=== PATIENT | female | born 1945 | race Caucasian/White ===

== ENCOUNTER → 2018-01-11 12:51 | Outpatient (CLI) | payer OTHER, SELFPAY ==
[2018-01-11 15:20] LABS: Carbon Dioxide 26 mmol/L (22-32); Chloride 105 mmol/L (98-107); HEMOLYSIS < 15 (0-50); Potassium 4.1 mmol/L (3.4-5.1); Sodium 142 mmol/L (137-145)
== END ==
PROVIDERS: PCP Internal Medicine; Visit Provider Internal Medicine
DX: Z01.818 Encounter for other preprocedural examination (principal)
CPT/HCPCS: 36415; 80051

== ENCOUNTER → 2018-01-21 14:29 | Outpatient (CLI) | payer OTHER, SELFPAY | PROVIDERS: PCP Internal Medicine; Visit Provider Internal Medicine | DX: R10.10 Upper abdominal pain, unspecified (principal) ==

== ENCOUNTER → 2018-01-27 09:21 | Outpatient (CLI) | payer OTHER, SELFPAY | PROVIDERS: PCP Internal Medicine; Visit Provider Internal Medicine | DX: R10.10 Upper abdominal pain, unspecified (principal) | CPT/HCPCS: 84110; 84120 ==

== ENCOUNTER 2018-03-08 10:13 | Outpatient (RCR) | payer OTHER, SELFPAY ==
--- NOTE | 2018-03-08 15:40 | PT.OIE ---
Current Diagnoses Pain in left knee (03/08/18) Muscle weakness (generalized) (03/08/18) Trochanteric bursitis, left hip (03/08/18) Iliotibial band syndrome, left leg (03/08/18) Other abnormalities of gait and mobility (03/08/18) Provider Visit Care Team Role Provider Type Melly Bah MD Primary Care Provider Physician Specialty: Internal Medicine Address: [address] [place] [address], [id number] Email: Sayra Ortiz MD Attending Provider Physician Specialty: Orthopedic Surgery Address: [address] [place] [address], [id number] Email: Physical Therapy Initial Evaluation PT-OP-A Visit Information Start: 03/08/18 09:46 Freq: Status: Active Protocol: Document 03/08/18 10:41 LRN (Rec: 03/08/18 11:28 LRN [id number]) Out-Patient Physical Therapy Visit Information Visit Information Visit Type Initial Evaluation Visit Note Visit Start Time 10:41 Visit Stop Time 11:24 Total Visit Minutes 43 Visit Number 1 Number of 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 Current Complaints Joint, muscle tendon pain from medications. History of Current Condition Pt onset history was difficult to follow. She states that since she has needed to be on medications from stents she noticed onset of leg pain. Her primary complaint is left knee pain in bed turning. Her entire L leg used to hurt, but now it is primarily in the left knee. She does state that in standing she has pain down the lateral L leg to the ankle and pain in the thigh medially. She states when she walks she has pain in the L knee located medial and inferior to the patella. She has sharp pain with trunk rotation with the feet planted . She wants to do exercise to keep her heart healthy. She mentioned she was diagnosed with MS in her 20's but would not elaborate on how that is associated to her current problem. She feels use of ice helps. Prior Treatments and Tests None. Treatment Goals Patient/Caregiver Goals Pt goal is to remain physically active and to be able to do cardiac exercise without injury to the L knee. Prior Functional Status Baseline Function- ADL's Independent Baseline Function- Mobility Independent Baseline Function- Recreation/Hobbies Able to exercise in Cardiac Rehab. Current Functional Impairments (Reported) Functional Limitations- ADL's Walking, standing Functional Limitations- Mobility/Gait Painful L hip/knee with gait. Functional Limitations- Recreation/ Cardiac rehab exercising. Hobbies Personal Factors Other Personal Factors That May Effect Co-morbidities per health Therapy/Recovery questionaire: 3 stents placed 05/30/2016, Arthritis, Fibromyalgia, Skin CA, diagnosed with Multiple Sclerosis which the pt designates she disagrees, neuropathy, heart disease, arterial disease, pt reported bilateral RODGER. PT-OP-C Subjective Start: 03/08/18 09:46 Freq: Status: Active Protocol: Document 03/08/18 10:41 LRN (Rec: 03/10/18 12:44 LRN [id number]) Patient Questionnaires Other Questionnaire Name and Score LEFS Score of 30 with 4 unanswered questions. OP-PT Pain Assessment Pain Assessment Grid Paper Pain Assessment Grid Completed Yes Location L LE Pain Location Details L Lateral and posterior thigh, and entire lower leg. Scale Used Numeric (1 - 10) Description- Other Pain varies 3-8/10. Pain Aggravating Factors Changing Position Activity Exercise Walking Pain Alleviating Factors Cold Patient Stated Pain Goal Tolerable level to be able to exercise in cardiac rehab. PT-OP-F Manual Assessment Start: 03/08/18 09:46 Freq: Status: Active Protocol: Document 03/08/18 10:41 LRN (Rec: 03/08/18 16:05 LRN [id number]) Manual Assessments Joint Mobility Assessment Joint Mobility Assessment Decreased L patellar mobility for Lateral > Medial [place]. PT-OP-G Mobility & Gait Start: 03/08/18 09:46 Freq: Status: Active Protocol: Document 03/08/18 10:41 LRN (Rec: 03/08/18 16:05 LRN [id number]) OP Mobility Evaluation Bed Mobility Rolling Painful L knee. Transfers Sit to Stand Slow and reticent with use of hands. OP Gait Assessment Gait Gait Assistance Required: Independent Distance (Feet) 50 Able to Maintain Weight Bearing Status Yes During Gait Gait Deviations General Gait Pattern Antalgic Factors Limiting Gait Function Factors Limiting Gait Function Pain PT-OP-J Posture/Palpation/Skin Start: 03/08/18 09:46 Freq: Status: Active Protocol: Document 03/08/18 10:41 LRN (Rec: 03/08/18 16:05 LRN [id number]) Posture Evaluation Position Standing T-Spine Posture Increased Kyphosis L-Spine Posture Decreased Lordosis Weight Distribution Weight Shifted Right Ankle/Foot Posture (R) Calcaneal Eversion PT-OP-K Range of Motion Start: 03/08/18 09:46 Freq: Status: Active Protocol: Document 03/08/18 10:41 LRN (Rec: 03/08/18 16:05 LRN [id number]) Hip Goniometric Range of Motion Hip ROM Limitations Hip ROM Limitations Soft Tissue Tightness Muscle Weakness Comments Hip ext: 0 deg's left, 5 deg's right. Hip IR: 10 deg's bilaterally. Hip ER: 30 deg's bilaterally. Knee Goniometric Range of Motion Knee Measured in Degrees Right Patient Position Supine Flexion Active (degrees) 120 Extension Active (degrees) 0 Left Patient Position Supine Flexion Active (degrees) 100 Extension Active (degrees) 0 PT-OP-M Strength Start: 03/08/18 09:46 Freq: Status: Active Protocol: Document 03/08/18 10:41 LRN (Rec: 03/08/18 16:05 LRN [id number]) Hip Strength Hip Manual Muscle Testing Right External Rotation 3 Fair Internal Rotation 3 Fair Comments Strength normal except as noted above. Left Adduction 2 Poor Internal Rotation 3 Fair Comments Strength normal except as noted above. Knee Strength Knee Manual Muscle Testing Right Reason Not Measured WFL Left Reason Not Measured WFL Comments Pain inferior to the patella with testing. PT-OP-Q Treatments Start: 03/08/18 09:46 Freq: Status: Active Protocol: Document 03/08/18 10:41 LRN (Rec: 03/08/18 16:05 LRN [id number]) Therapeutic Exercises Sidelying Exercises Hip AD Side left Manual Therapy Treatment Joint Mobilizations Patellar Joint PF Direction Medial/Lateral Grade II Body Position Supine Comments Minimal mob tolerated. Self-Care/Home Management Treatment Education Patient Education Home Exercise Program Activities Self-Care/Home Management Activities I/S pt in self patellar mobs, and L hip AD strengthening in R sidelie or standing. I/S pt in use of ice for pain management. PT-OP-T Assessment and Plan Start: 03/08/18 09:46 Freq: Status: Active Protocol: Document 03/08/18 10:41 LRN (Rec: 03/08/18 16:05 LRN [id number]) Physical Therapy Assessment Rehab Potential Rehabilitation Potential Good Evaluation Complexity Number of Personal Factors/Comorbidities 3 or More Number of Body Systems Impaired 4 or More Clinical Presentation at Evaluation Evolving Impairments Impairments Activity Tolerance Gait Pain Posture ROM Strength Other Concerns Age Related Concerns 72 yrs old. Barriers to Rehabilitation Skin CA. Heart Disease: 2 stents. Neuropathy. Multiple Sclerosis that the pt doesn't believe she has. ?[place]iter TKA. Goals Four Impairment Pt lacks self care program. Weigh Machine Operator Goal (LTG) Pt will be independent in a self care program to maintain achieved baseline function. LTG Duration 05/12/19 Three Impairment Decreased postural awareness. Short Term Goal (STG) Pt will demonstrate improved postural awareness by independent self correction of posture 75% of the time. STG Duration 04/12/18 Two Impairment Decreased L LE strength Weigh Machine Operator Goal (LTG) Pt will demonstrate improved gait mechanics with improved L LE strength LTG Duration 04/12/19 One Impairment L knee and mildly L hip pain. Custodial Goal (LTG) With reduction in pain the pt will be able to tolerate return to a cardiac exercise program. LTG Duration 05/12/19 Assessment Summary Assessment Pt presents with tenderness in the bilateral TFL muscles and mildly at the greater trochanter bursa site, Left PF pain with decreased mobility for medial/lateral mobility, decreased L>R hip strength and antalgic gait. Pt also complains of R shoulder pain but is agreeable to focus on her L LE pain and will seek follow up care and a possible referral for shoulder pain once her L LE pain has been addressed. Physical Therapy Plan Frequency and Duration Frequency of Treatment 2x/Week Plan of Care Start Date 03/08/18 Plan of Care End Date 05/12/19 Therapeutic Interventions Therapeutic Interventions Aquatic Therapy Gait Training Home Exercise Program Manual Therapy Neuromuscular Re-education Patient/Caregiver Education Self-Care/Home Management Soft Tissue Mobilization Therapeutic Exercises Modalities Cold Pack/Ice Massage Electric Stimulation Hot Packs Iontophoresis Next Visit Focus/Plan Next Note Type Treatment Note Next Visit Plan Exercise strengthening to start, f/b Patellar mob med/ lat; L hip strengthening (AD, IR/R ER), L hip ext stretch, L knee flexion stretch, MWM for L knee flexion, STM, gait training, end CP or ice/EStim.
--- NOTE | 2018-03-15 12:34 | PT.OPDS ---
Current Diagnoses Pain in left knee (03/08/18) Muscle weakness (generalized) (03/08/18) Trochanteric bursitis, left hip (03/08/18) Iliotibial band syndrome, left leg (03/08/18) Other abnormalities of gait and mobility (03/08/18) Provider Visit Care Team Role Provider Type Melly Bah MD Primary Care Provider Physician Specialty: Internal Medicine Address: [address] [place] [address], [address] Email: Sayra Ortiz MD Attending Provider Physician Specialty: Orthopedic Surgery Address: [address] [place] [address], [id number] Email: Visit Number Visit Number 1 Discharge Summary PT-OP-B Current Condition Start: 03/08/18 09:46 Freq: Status: Active Protocol: Document 03/08/18 10:41 LRN (Rec: 03/08/18 11:28 LRN [id number]) Current Condition History of Current Condition Onset Date January 2018 after start of medications for her heart ( stent placed). Current Complaints Joint, muscle tendon pain from medications. History of Current Condition Pt onset history was difficult to follow. She states that since she has needed to be on medications from stents she noticed onset of leg pain. Her primary complaint is left knee pain in bed turning. Her entire L leg used to hurt, but now it is primarily in the left knee. She does state that in standing she has pain down the lateral L leg to the ankle and pain in the thigh medially. She states when she walks she has pain in the L knee located medial and inferior to the patella. She has sharp pain with trunk rotation with the feet planted . She wants to do exercise to keep her heart healthy. She mentioned she was diagnosed with MS in her 20's but would not elaborate on how that is associated to her current problem. She feels use of ice helps. Prior Treatments and Tests None. Treatment Goals Patient/Caregiver Goals Pt goal is to remain physically active and to be able to do cardiac exercise without injury to the L knee. Prior Functional Status Baseline Function- ADL's Independent Baseline Function- Mobility Independent Baseline Function- Recreation/Hobbies Able to exercise in Cardiac Rehab. Current Functional Impairments (Reported) Functional Limitations- ADL's Walking, standing Functional Limitations- Mobility/Gait Painful L hip/knee with gait. Functional Limitations- Recreation/ Cardiac rehab exercising. Hobbies Personal Factors Other Personal Factors That May Effect Co-morbidities per health Therapy/Recovery questionaire: 3 stents placed 05/30/2016, Arthritis, Fibromyalgia, Skin CA, diagnosed with Multiple Sclerosis which the pt designates she disagrees, neuropathy, heart disease, arterial disease, pt reported bilateral RODGER. PT-OP-T Assessment and Plan Start: 03/08/18 09:46 Freq: Status: Active Protocol: Document 03/15/18 12:29 LRN (Rec: 03/15/18 12:33 LRN [id number]) Physical Therapy Assessment Assessment Summary Assessment Pt was seen for her initial evaluation 03/08/18 and failed to return for further therapy due to report of insurance issues. Expect no change in pt's condition, goals not met. Physical Therapy Plan Next Visit Focus/Plan Next Visit Plan Pt is being discharged due to pt's withdrawl from physical therapy. Thank you for your referral.
== END 2018-05-20 11:12 ==
LOC: PHYS 10:13
PROVIDERS: PCP Internal Medicine; Visit Provider Orthopaedic Surgery Foot and Ankle Surgery
DX: M70.62 Trochanteric bursitis, left hip (principal); M76.32 Iliotibial band syndrome, left leg
CPT/HCPCS: 97161

== ENCOUNTER → 2018-03-16 08:46 | Outpatient (CLI) | payer OTHER, SELFPAY ==
[2018-03-16 09:41] LABS: Alanine Aminotransferase 23 IU/L (9-52); Albumin 4.3 g/dL (3.5-5.0); Albumin Globulin Ratio 1.8 (1.0-2.8); Alkaline Phosphatase 67 U/L (38-126); Aspartate Aminotransferase 23 IU/L (14-36); Bilirubin Total 0.7 mg/dL (0.2-1.3); Blood Urea Nitrogen 14 mg/dL (7-17); Calcium 9.6 mg/dL (8.4-10.2); Carbon Dioxide 31 mmol/L (22-32); Chloride 104 mmol/L (98-107); Cholesterol 255 mg/dL (140-199); Estimated Glomerular Filt Rate > 60.0 mL/min (>60); Globulin 2.4 g/dL (1.7-4.1); Glucose 116 mg/dL (80-110); HDL Cholesterol 60 mg/dL (40-60); HEMOLYSIS < 15 (0-50); LDL Cholesterol Calculated 155 mg/dL (<100); Potassium 4.5 mmol/L (3.4-5.1); Sodium 142 mmol/L (137-145); Total Protein 6.7 g/dL (6.3-8.2); Triglycerides 201 mg/dL (35-150)
== END ==
PROVIDERS: PCP Internal Medicine; Visit Provider Internal Medicine Cardiovascular Disease
DX: E78.5 Hyperlipidemia, unspecified (principal)
CPT/HCPCS: 36415; 80053; 80061

== ENCOUNTER → 2018-05-17 09:52 | Outpatient (CLI) | payer OTHER, SELFPAY ==
[2018-05-17 10:26] LABS: Hemoglobin A1C% w Est Avg Glu 6.2 % (4.0-6.0)
[2018-05-17 10:32] LABS: Alanine Aminotransferase 21 IU/L (9-52); Albumin 4.6 g/dL (3.5-5.0); Albumin Globulin Ratio 1.8 (1.0-2.8); Alkaline Phosphatase 63 U/L (38-126); Aspartate Aminotransferase 24 IU/L (14-36); BUN Creatinine Ratio 17.5 (6-22); Bilirubin Total 0.5 mg/dL (0.2-1.3); Blood Urea Nitrogen 14 mg/dL (7-17); Calcium 9.7 mg/dL (8.4-10.2); Carbon Dioxide 27 mmol/L (22-32); Chloride 104 mmol/L (98-107); Cholesterol 289 mg/dL (140-199); Estimated Glomerular Filt Rate > 60.0 mL/min (>60); Globulin 2.5 g/dL (1.7-4.1); Glucose 129 mg/dL (80-110); HDL Cholesterol 62 mg/dL (40-60); HEMOLYSIS < 15 (0-50); LDL Cholesterol Calculated 197 mg/dL (<100); Potassium 4.6 mmol/L (3.4-5.1); Sodium 141 mmol/L (137-145); Total Protein 7.1 g/dL (6.3-8.2); Triglycerides 150 mg/dL (35-150)
== END ==
PROVIDERS: PCP Internal Medicine; Visit Provider Internal Medicine Cardiovascular Disease
DX: E78.5 Hyperlipidemia, unspecified (principal); R73.9 Hyperglycemia, unspecified
CPT/HCPCS: 36415; 80053; 80061; 83036

== ENCOUNTER 2018-08-14 16:43 | Emergency (ER) | payer OTHER, SELFPAY ==
--- NOTE | 2018-08-14 16:49 | DI.RAD.S_ITS ---
PROCEDURE: XR CHEST 1V INDICATIONS: chest pain TECHNIQUE: One view of the chest was acquired. COMPARISON: [facility], , CHEST 1 VIEW, 05/28/2016, 1:21. FINDINGS: Surgical changes and devices: None. Lungs and pleura: Lungs are clear. No pleural effusions or pneumothorax. Mediastinum: Mediastinal contours appear normal. Heart size is normal. Bones and chest wall: No suspicious bony lesions. Overlying soft tissues appear unremarkable. IMPRESSION: Negative for acute pulmonary process. Dictated by: John Bourgeois M.D. on 08/14/2018 at 17:18 Approved by: John Bourgeois M.D. on 08/14/2018 at 17:18
[2018-08-14 16:50] VITALS: BP 140/81; PULSE 73; RESP 18; O2SAT 95; BMI 28.1
[2018-08-14 17:00] VITALS: BP 156/69; PULSE 68; RESP 20; O2SAT 97
[2018-08-14 17:23] LABS: Add Manual Diff / Slide Review NO; Basophils Absolute Auto 100 /uL (0-100); Basophils Percent Auto 0.9 % (0-2); Eosinophils Absolute Auto 100 /uL (0-450); Eosinophils Percent Auto 1.5 % (2-4); Hematocrit 39.5 % (36-46); Hemoglobin 13.2 g/dL (12.0-16.0); Lymphocytes Absolute Auto 2200 /uL (1100-4500); Lymphocytes Percent Auto 25.4 % (25-40); Mean Corpuscular HGB Conc 33.5 % (30-36); Mean Corpuscular Volume 83.7 fL (80-100); Monocytes Absolute Auto 500 /uL (0-900); Monocytes Percent Auto 5.7 % (3-14); Neutrophils Absolute Auto 5800 /uL (1500-7000); Neutrophils Percent Auto 66.5 % (50-75); Platelet Count 171 X10^3/uL (150-400); Red Blood Cell Count 4.72 X10^6/uL (4.0-5.2); White Blood Cell Count 8.7 X10^3/uL (4.5-11.0)
[2018-08-14 17:30] VITALS: BP 156/71; PULSE 69; RESP 18; O2SAT 98
[2018-08-14 17:34] LABS: Alanine Aminotransferase 24 IU/L (9-52); Albumin 4.3 g/dL (3.5-5.0); Albumin Globulin Ratio 1.6 (1.0-2.8); Alkaline Phosphatase 63 U/L (38-126); Aspartate Aminotransferase 23 IU/L (14-36); BUN Creatinine Ratio 16.3 (6-22); Bilirubin Total 0.5 mg/dL (0.2-1.3); Blood Urea Nitrogen 13 mg/dL (7-17); Calcium 9.2 mg/dL (8.4-10.2); Carbon Dioxide 24 mmol/L (22-32); Chloride 106 mmol/L (98-107); Creatine Kinase 67 U/L (30-135); Estimated Glomerular Filt Rate > 60.0 mL/min (>60); Globulin 2.7 g/dL (1.7-4.1); Glucose 100 mg/dL (80-110); HEMOLYSIS 22 (0-50); Potassium 3.9 mmol/L (3.4-5.1); Sodium 138 mmol/L (137-145)
[2018-08-14 17:46] LABS: Troponin I < 0.012 ng/mL (0.01-0.034)
[2018-08-14 18:00] VITALS: BP 147/76; PULSE 69; RESP 16; O2SAT 96
--- NOTE | 2018-08-19 14:25 | ED_ITS ---
HPI - Chest Pain General Chief Complaint: Chest Pain Stated Complaint: chest pain back pain Time Seen by Provider: 08/14/18 17:10 Source: patient Mode of arrival: ambulatory Limitations: no limitations History of Present Illness HPI narrative: Patient presents emergency department complaining of chest pain on off for the last several days. She denies shortness of breath, radiation of pain, or nausea. The pain has been on both sides of her chest. She states she has also noticed it radiating through to the back. She states it is worse with a deep breath. Pain is not currently present. Patient states she just wanted to get checked out for peace of mind. Patient states that she has had 4 of 10 pain at the worst. The pain comes on randomly, and is not exertionally related. Patient does have a history of coronary artery stenting in the past. Related Data Previous Rx's Medication Instructions Recorded nitrofurantoin monohyd/m-cryst 100 mg PO BID 7 Days #0 cap 05/01/16 [Macrobid] Allergies Allergy/AdvReac Type Severity Reaction Status Date / Time adenosine [ADENOSINE] Allergy Unknown Unverified 09/15/17 12:38 Opioids - Morphine Analogues Allergy Unknown Unverified 09/15/17 12:38 [OPIOIDS - MORPHINE ANALOGUES] Dwdvgbq-Fne-Pcj Reductase Allergy Unknown Unverified 09/15/17 12:38 Inhibitor [[id number]-WCS-CJB REDUCTASE INHIBITOR] Sulfa (Sulfonamide Allergy Unknown Unverified 09/15/17 12:38 Antibiotics) [SULFA (SULFONAMIDE ANTIBIOTICS)] Review of Systems Constitutional Denies chills, Denies fever(s), Denies lethargy and Denies weakness Eyes Denies change in vision, Denies eye discharge, Denies irritation and Denies loss of vision ENT Ears, Nose, Mouth, and Throat: Denies change in voice, Denies neck pain and Denies sore throat Cardiovascular Reports chest pain, Denies irregular heart rhythm, Denies lightheadedness, Denies palpitations, Denies dyspnea, Denies dyspnea on exertion and Denies orthopnea Respiratory Denies cough, Denies dyspnea, Denies dyspnea on exertion and Denies wheezing Gastrointestinal Gastrointestinal: Denies abdominal pain, Denies change in bowel habits, Denies diarrhea, Denies nausea and Denies vomiting Genitourinary Denies hematuria, Denies flank pain, Denies urinary incontinence and Denies urinary urgency Musculoskeletal Denies neck pain Integumentary/Breasts Denies pruritus, Denies erythema, Denies rash and Denies wounds Neurologic Denies confusion, Denies loss of vision and Denies weakness Psychiatric Denies anxiety, Denies confusion, Denies depression, Denies homicidal ideation and Denies suicidal ideation Endocrine Denies palpitations Hematologic/Lymphatic Denies easy bruising Allergic/Immunologic Denies wheezing PFSH Medical History Coronary artery disease (Acute) Chest pain (Acute) Renal cyst, left (Acute) Acute coronary syndrome (Acute) Surgical History H/O coronary angioplasty (Acute) Social History Smoking Status: Former smoker Social History Smoking Status: Former smoker Exam Initial Vital Signs Initial Vital Signs: Vital Signs Pulse Rate 73 08/14/18 16:50 Respiratory Rate 18 08/14/18 16:50 Blood Pressure 140/81 08/14/18 16:50 Pulse Oximetry 95 08/14/18 16:50 Const General: cooperative and well developed Nutritional Appearance: well nourished Orientation: alert, awake, oriented x3 and not confused HENMT Head: normocephalic and atraumatic Ears: external ears normal Nose: external nose normal and No nasal discharge Face and sinus: face symmetric and No dry mucous membranes Mouth: oral mucosae normal and moist mucous membranes Teeth and gingiva: dentition normal Eyes General: appearance normal, both eyes and all related structures Eyelids: eyelids normal Conjunctivae: conjunctivae normal Sclera: sclerae normal Pupils: PERRL EOM: EOM intact bilaterally Neck Neck: normal visual inspection, trachea midline, No lymphadenopathy, No midline deformity and No JVD Lymphatic: No lymphedema Chest Chest: normal inspection of the chest Resp Effort & Inspection: normal respiratory effort, able to speak in complete sentences, no respiratory distress and no use of accessory muscles Auscultation: clear to auscultation bilaterally, no rales, no rhonchi and no wheezes Cardio Rate: regular rate Rhythm: regular rhythm Heart Sounds: no click, no gallops, no murmurs and no rubs Pulses: normal peripheral pulses GI Inspection: non-distended Palpation: soft, no hepatosplenomegaly, No guarding, No pulsatile mass and No tender Auscultation: normal bowel sounds Back/Spine/Pelvis Back: No CVA tenderness Cervical Spine: cervical ROM normal and No pain with cervical ROM Thoracic/Lumbar Spine: thoracic and lumbar spine normal to inspection Skin General: no rashes or lesions noted, No jaundice and No petechiae Neuro General: alert, oriented x3, gait normal and no focal motor deficits Speech: speech normal Extrem General: full ROM, no clubbing, cyanosis or edema, no pedal edema and no calf tenderness Psych Appearance: well kempt Mental Status: mental status grossly normal Attitude: cooperative Thought Content: normal and suicidality Judgment: judgment good Course Course Narrative: the patient was chest pain-free in the emergency department, but given her history, I felt she should at least have initial workup for her chest pain. Labs and EKG were performed, and found to be unremarkable. I discussed with the patient that her pain is somewhat atypical, and has been going on on and off for several days. As such, is less likely to be coronary artery disease related, but none the less, with her history, she should follow up with her primary doctor and discuss having a stress test done. Patient is agreeable to this plan. We discussed the usual indications for return. MDM - Chest Pain Medical Records Data Attestation: I reviewed the patient's medical records. Lab Data Attestation: I reviewed the patient's lab results. Result diagrams: 08/14/18 17:12 08/14/18 17:12 Lab Results 08/14/18 08/14/18 Range/Units 17:12 17:12 WBC 8.7 (4.5-11.0) X10^3/uL RBC 4.72 (4.0-5.2) X10^6/uL Hgb 13.2 (12.0-16.0) g/dL Hct 39.5 (36-46) % MCV 83.7 (80-100) fL MCH 28.0 (26-34) PG MCHC 33.5 (30-36) % RDW 15.0 H (11.6-14.8) % Plt Count 171 (150-400) X10^3/uL Neut % (Auto) 66.5 (50-75) % Lymph % (Auto) 25.4 (25-40) % [place] % (Auto) 5.7 (3-14) % Eos % (Auto) 1.5 L (2-4) % Baso % (Auto) 0.9 (0-2) % Neut # (Auto) 5800 (4604-1176) /uL Lymph # (Auto) 2200 (0992-6191) /uL [place] # (Auto) 500 (0-900) /uL Eos # (Auto) 100 (0-450) /uL Baso # (Auto) 100 (0-100) /uL Sodium 138 (137-145) mmol/L Potassium 3.9 (3.4-5.1) mmol/L Chloride 106 (98-107) mmol/L Carbon Dioxide 24 (22-32) mmol/L BUN 13 (7-17) mg/dL Creatinine 0.80 (0.52-1.04) mg/dL Estimated GFR > 60.0 (>60) mL/min BUN/Creatinine Ratio 16.3 (6-22) Glucose 100 (80-110) mg/dL Calcium 9.2 (8.4-10.2) mg/dL Total Bilirubin 0.5 (0.2-1.3) mg/dL AST 23 (14-36) IU/L ALT 24 (9-52) IU/L Alkaline Phosphatase 63 (38-126) U/L Total Creatine Kinase 67 (30-135) U/L CK-MB (CK-2) TNP CK-MB (CK-2) Rel Index TNP Troponin I < 0.012 (0.01-0.034) ng/mL Total Protein 7.0 (6.3-8.2) g/dL Albumin 4.3 (3.5-5.0) g/dL Globulin 2.7 (1.7-4.1) g/dL Albumin/Globulin Ratio 1.6 (1.0-2.8) Urine Dip Bedside Urine Glucose Negative Bedside Urine Bilirubin - Negative Bedside Urine Ketone - Negative Urine Specific [place] 1.020 Bedside Urine Occult Blood - Negative Bedside Urine pH 5.5 Bedside Urine Protein - Negative Bedside Urine Urobilinogen - Negative Bedside Urine Nitrite - Negative Bedside Urine Leukocytes - Negative Esterase Discharge Plan Departure Patient Disposition: Home Clinical Impression: Chest pain Qualifiers: Chest pain type: unspecified Qualified Code(s): R07.9 - Chest pain, unspecified Back pain Qualifiers: Back pain location: thoracic back pain Chronicity: acute Back pain laterality: right Qualified Code(s): M54.6 - Pain in thoracic spine Discharge Date/Time: 08/14/18 18:35 Interventions: ED Discharge Assessment Last Done: 08/14/18 18:35 Instructions: DI for Chest Pain Activity Restrictions/Additional Instructions: Your tests all look good. There is no evidence of a heart attack, or other seri ous cause of your pain. Please see your doctor in follow-up, to discuss whether you need to be rechecked with a stress test or not. Please take your nitroglycerine if you develop chest pain again. Prescriptions: No Action nitrofurantoin monohyd/m-cryst [Macrobid] 100 MG capsule 100 mg PO BID 7 Days Qty: 0 RF: 0 Referrals: Melly Bah MD [Primary Care Provider] -
== END 2018-08-14 18:35 | disposition home or self-care (01) ==
PROVIDERS: Emergency Provider Emergency Medicine; PCP Internal Medicine
DX: R07.9 Chest pain, unspecified (principal); M54.6 Pain in thoracic spine
CPT/HCPCS: 36591; 71045; 80053; 81003; 82550; 84484; 85025; 93005; 99283; 99285

== ENCOUNTER → 2018-10-14 12:50 | Outpatient (CLI) | payer OTHER, SELFPAY ==
--- NOTE | 2018-10-14 | DI.MG.S_ITS ---
BILATERAL DIGITAL SCREENING MAMMOGRAM 3D/2D WITH CAD: 10/14/2018 CLINICAL: Routine screening. Family history of breast cancer. Comparison is made to exams dated: 10/13/2017 mammogram, 09/24/2016 mammogram - [facility], 03/19/2015 mammogram, and 02/01/2013 ultrasound - [facility]. There are scattered fibroglandular elements in both breasts. Current study was also evaluated with a Computer Aided Detection (CAD) system. There is a benign biopsy clip in the left breast. No significant masses, calcifications, or other findings are seen in either breast. There has been no significant interval change. IMPRESSION: NEGATIVE There is no mammographic evidence of malignancy. A 1 year screening mammogram is recommended. This exam was interpreted at Station ID: [id number]. NOTE: For mammograms, a report in lay terms will be sent to the patient. Approximately 15% of breast malignancies will not be visualized mammographically. In the management of a palpable breast mass, a negative mammogram must not discourage biopsy of a clinically suspicious lesion. Electronically Signed By: Stu medeiros/deepak:10/14/2018 17:33:55 letter sent: Normal Exam ACR BI-RADS Category 1: Negative [id number]
== END ==
PROVIDERS: PCP Internal Medicine; Visit Provider Internal Medicine
DX: Z12.31 Encounter for screening mammogram for malignant neoplasm of breast (principal); Z80.3 Family history of malignant neoplasm of breast
CPT/HCPCS: 77063; 77067

== ENCOUNTER 2018-11-08 10:26 | Emergency (ER) | payer OTHER, SELFPAY ==
[2018-11-08] VITALS (12 sets, daily range): BP systolic 97–144; BP diastolic 58–91; PULSE 61–80; RESP 16–29; TEMP 36.1; O2SAT 92–96; BMI 27.8
--- NOTE | 2018-11-08 10:52 | ED.CHESTPAIN ---
HPI - Chest Pain General Chief Complaint: Chest Pain Stated Complaint: Heart Attack Time Seen by Provider: 11/08/18 10:30 Source: patient and old records reviewed Mode of arrival: wheelchair Limitations: no limitations History of Present Illness HPI narrative: This is a 73-year-old female who is brought in by her friend. Patient comes from home, she states that she was discharged from [facility] for an heart attack on Wednesday the November 04. Patient states that she was feeling pretty well the day afterwards. Since then she has had some shortness of breath, she states it easily go away but she notices it especially nighttime when she is sleeping. She states that the other night she got up to go to the bathroom and she thought her toes look sort of hurd. She has been checking her blood pressure, heart rate on oxygen at home. She states that she will get discomfort but in her back. It is not in her chest. It can be from the left or right side of her scapular area. She isn't sure if this is associated with her episodes of shortness of breath. She has been nauseated occasionally. She has vomited but she states it will be when she drinks water she was sort of in for water will come out and that will be it. She denies any issues with diarrhea or constipation. She denies any new issues with urination but sometimes has problems with urinary retention/hesitancy. She denies any swelling in her lower extremities. She has not tried any the nitro sublingual for her symptoms. Patient states that she was catheterized, she does not know stated a stent but she states that they wanted to intubate her for a repeat catheterization and she refused. She did have 1 episode of AFib the hospital. They gave her amiodarone which she has been taking. She states she has multiple medication allergies. 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 She takes medication for hypertension, dyslipidemia. She is on Effient. Patient is any tobacco, no recent alcohol or illicit. Dr. Cardoso is her traffic court magistrate. Patient also added that once she got home she took about her CPAP and tried to clean it and this may be contributing to her difficulty with sleeping and breathing at night. Related Data Previous Rx's Medication Instructions Recorded nitrofurantoin monohyd/m-cryst 100 mg PO BID 7 Days #0 cap 05/01/16 [Macrobid] Allergies Allergy/AdvReac Type Severity Reaction Status Date / Time adenosine [ADENOSINE] Allergy Unknown Verified 11/08/18 10:35 Opioids - Morphine Analogues Allergy Unknown Verified 11/08/18 10:35 [OPIOIDS - MORPHINE ANALOGUES] Fwysftj-Ilk-Btf Reductase Allergy Unknown Verified 11/08/18 10:35 Inhibitor [WWLMLSC-[id number]-BKN REDUCTASE INHIBITOR] Sulfa (Sulfonamide Allergy Unknown Verified 11/08/18 10:35 Antibiotics) [SULFA (SULFONAMIDE ANTIBIOTICS)] Review of Systems Review of Systems ROS Unobtainable: All systems reviewed & are unremarkable except as noted in HPI and below Constitutional Denies chills, Denies fever(s), Denies lethargy and Denies weakness Cardiovascular Denies chest pain, Denies diaphoresis, Denies syncope, Denies rapid heart rate, Denies edema, Denies radiating jaw, neck or arm pain, Denies palpitations, Denies dyspnea, Reports dyspnea on exertion, Denies orthopnea and Denies other (pain right or left) Respiratory Denies chest congestion, Denies cough, Denies dyspnea, Reports dyspnea on exertion and Denies wheezing Gastrointestinal Gastrointestinal: Denies abdominal pain, Denies change in bowel habits, Denies diarrhea, Denies nausea and Denies vomiting Genitourinary Denies hematuria, Denies flank pain, Denies urinary incontinence, Reports urinary hesitancy and Denies urinary urgency Musculoskeletal Reports back pain (scapular discomfort.) Integumentary/Breasts Denies erythema Neurologic Denies syncope and Denies weakness Endocrine Denies palpitations Allergic/Immunologic Denies wheezing [facility] Medical History Coronary artery disease (Acute) Renal cyst, left (Acute) Acute coronary syndrome (Acute) Chest pain (Inactive) Surgical History H/O coronary angioplasty (Acute) Social History Smoking Status: Former smoker Social History Smoking Status: Former smoker Exam Narrative Exam Narrative: GENERAL: Alert and oriented x three, well-nourished, well-appearing female in no acute distress. HEENT: Head normocephalic, atraumatic, EOMI, pupils reactive, face symmetric, moist mucous membranes NECK: Supple, full range of motion CARDIOVASCULAR: Regular rate and rhythm without murmurs, rubs or gallops. No DVT. Bilateral pulses lower extremities, no edema bilateral lower extremities. RESPIRATORY: Breath sounds equal bilaterally, no wheezes rales or rhonchi. No tachypnea, no accessory muscle use. ABDOMEN: Soft, nontender. Normoactive bowel sounds all 4 quadrants. No guarding or rebound, rigidity, no mass : No CVA tenderness EXTREMITIES: Normal range of motion, no clubbing or edema. Neurovascularly intact NEUROLOGICAL: Cranial nerves II through XII grossly intact. Moving all extremities SKIN: Warm, dry, no petechiae, no rashes or lesions. Initial Vital Signs Initial Vital Signs: Vital Signs Temperature 97.0 F L 11/08/18 10:35 Pulse Rate 72 11/08/18 10:35 Respiratory Rate 22 11/08/18 10:35 Blood Pressure 117/71 11/08/18 10:35 Pulse Oximetry 93 11/08/18 10:35 Course Orders Ordered: ED Orders 11/08/18 10:34 EKG-12 Lead Stat 11/08/18 10:53 XR chest 1V Stat 11/08/18 11:05 B Type Natriuretic Peptide Stat Complete Blood Count AUTO DIFF Stat Comprehensive Metabolic Panel Stat Lipase Stat Troponin & CK Cardiac Panel Stat 11/08/18 12:20 EKG-12 Lead Stat Discontinued Medications Acetaminophen (Tylenol) 650 mg PO NOW ONE Stop: 11/08/18 13:18 Last Admin: 11/08/18 13:18 Dose: 650 mg Albuterol/Ipratropium (Duoneb) 3 ml INH NOW ONE Stop: 11/08/18 13:29 Last Admin: 11/08/18 13:36 Dose: 3 ml Furosemide (Lasix) 40 mg IV NOW ONE Stop: 11/08/18 12:37 Last Admin: 11/08/18 13:16 Dose: 40 mg Heparin Sodium (Porcine) (Heparin) 5,000 unit IV NOW ONE Stop: 11/08/18 12:09 Last Admin: 11/08/18 12:16 Dose: 5,000 unit Sodium Chloride (Normal Saline 0.9%) 1,000 mls @ 150 mls/hr IV CONT DANIELA Last Infusion: 11/08/18 14:58 Dose: 0 mls/hr Admin: 11/08/18 11:27 Dose: 150 mls/hr Heparin Sodium/Dextrose (Heparin Drip) 25,000 unit in 500 mls @ 19.377 mls/hr IV CONT DANIELA; Protocol Last Infusion: 11/08/18 14:58 Dose: 0 units/kg/hr, 0 mls/hr Admin: 11/08/18 12:16 Dose: 12 units/kg/hr, 19.377 mls/hr Nitroglycerin (Nitroglycerin) 50 mg in 250 mls @ 1.5 mls/hr IV TITRATE DANIELA; Protocol Last Titration: 11/08/18 14:58 Dose: 0 mcg/min, 0 mls/hr Titration: 11/08/18 13:10 Dose: 20 mcg/min, 6 mls/hr Titration: 11/08/18 13:05 Dose: 10 mcg/min, 3 mls/hr Admin: 11/08/18 13:00 Dose: 5 mcg/min, 1.5 mls/hr Nitroglycerin (Nitrostat) 0.4 mg SL [id number] PRN PRN Reason: Chest Pain Last Admin: 11/08/18 12:26 Dose: 0.4 mg Vital Signs - 8 hr 11/08/18 11:00 11/08/18 12:00 11/08/18 12:25 Pulse Rate 70 64 70 Respiratory Rate 22 18 23 Blood Pressure Blood Pressure [Left Arm] 123/75 115/82 125/68 Pulse Oximetry 94 95 92 11/08/18 12:26 11/08/18 12:45 11/08/18 12:50 Pulse Rate 71 80 78 Respiratory Rate 23 Blood Pressure 115/82 Blood Pressure [Left Arm] 144/74 H Pulse Oximetry 96 11/08/18 13:00 11/08/18 13:15 11/08/18 13:37 Pulse Rate 80 80 78 Respiratory Rate 24 16 Blood Pressure 131/91 H Blood Pressure [Left Arm] 129/86 Pulse Oximetry 95 94 11/08/18 14:14 11/08/18 14:50 Pulse Rate 61 73 Respiratory Rate 21 29 H Blood Pressure Blood Pressure [Left Arm] 97/64 99/58 L Pulse Oximetry 94 96 MDM - Chest Pain Lab Data Attestation: I reviewed the patient's lab results. Result diagrams: 11/08/18 11:05 11/08/18 11:05 Lab Results 11/08/18 11/08/18 11/08/18 Range/Units 11:05 11:05 11:05 WBC 9.7 (4.5-11.0) X10^3/uL RBC 4.25 (4.0-5.2) X10^6/uL Hgb 11.7 L (12.0-16.0) g/dL Hct 34.9 L (36-46) % MCV 82.2 (80-100) fL MCH 27.6 (26-34) PG MCHC 33.5 (30-36) % RDW 15.1 H (11.6-14.8) % Plt Count 260 (150-400) X10^3/uL Neut % (Auto) 70.8 (50-75) % Lymph % (Auto) 18.9 L (25-40) % [place] % (Auto) 8.2 (3-14) % Eos % (Auto) 1.1 L (2-4) % Baso % (Auto) 1.0 (0-2) % Neut # (Auto) 6900 (7194-2771) /uL Lymph # (Auto) 1800 (8453-0381) /uL [place] # (Auto) 800 (0-900) /uL Eos # (Auto) 100 (0-450) /uL Baso # (Auto) 100 (0-100) /uL Sodium 136 L (137-145) mmol/L Potassium 4.4 (3.4-5.1) mmol/L Chloride 101 (98-107) mmol/L Carbon Dioxide 28 (22-32) mmol/L BUN 13 (7-17) mg/dL Creatinine 0.70 (0.52-1.04) mg/dL Estimated GFR > 60.0 (>60) mL/min BUN/Creatinine Ratio 18.6 (6-22) Glucose 133 H (80-110) mg/dL Calcium 9.6 (8.4-10.2) mg/dL Total Bilirubin 0.9 (0.2-1.3) mg/dL AST 20 (14-36) IU/L ALT 21 (9-52) IU/L Alkaline Phosphatase 77 (38-126) U/L Total Creatine Kinase 44 (30-135) U/L CK-MB (CK-2) TNP CK-MB (CK-2) Rel Index TNP Troponin I 3.590 H* (0.01-0.034) ng/mL B-Natriuretic Peptide 1240 H (<100) Total Protein 6.9 (6.3-8.2) g/dL Albumin 3.9 (3.5-5.0) g/dL Globulin 3.0 (1.7-4.1) g/dL Albumin/Globulin Ratio 1.3 (1.0-2.8) Lipase 31 (23-300) U/L Imaging Data Chest x-ray: Radiologist's impression: [address] [id number] XRay Report Signed Patient: Soren Landrum CMR#: [id number] : 5Acct:[id number] Age/Sex: 73 / FDate of Service: 11/08/18 Loc: ED Accession Number: [id number] Procedure: XR chest 1V Ordering Provider: Myrtle Aguiar D.O. PROCEDURE: XR CHEST 1V INDICATIONS: back pain, sob intermittent, recent HI end of October TECHNIQUE: One view of the chest was acquired. COMPARISON: [facility], CR, XR CHEST 1 VIEW, 10/30/2018, 4:47. [facility], CR, XR CHEST 1 VIEW, 11/03/2018, 19:18. [facility], CR, XR CHEST 1 VIEW, 10/30/2018, 23:35. [facility], , XR CHEST 1V, 08/14/2018, 17:00. FINDINGS: Surgical changes and devices: None. Lungs and pleura: There are small bilateral pleural effusions, left greater right. The left effusion appears minimally changed, and the right pleural effusion is new. No pneumothorax. Mediastinum: Mediastinal contours appear normal. Heart size is mildly increased. Bones and chest wall: No suspicious bony lesions. Overlying soft tissues appear unremarkable. IMPRESSION: 1. Small bilateral pleural effusions, new on the right side and minimally changed on the left side compared to the last exam. 2. Mild cardiomegaly. Dictated by: Jenny Chicas M.D. on 11/08/2018 at 11:37 Approved by: Jenny Chicas M.D. on 11/08/2018 at 11:39 ECG Data Attestation: I personally reviewed and interpreted this ECG as follows: Prior ECG tracings: available for review Interpretation: Sinus rhythm rate of 72 NC 154 QRS of 93 QTC of 446. Patient has ST depression in precordial leads V1 through V4. Patient has prior EKG from 3 03/26/[address] depression. I do not have access to prior EKGs from her [facility] stay at the end of October. EKG 2. Continues to say show ST depression in he to through move 4, elevations not appreciated. Patient's EKG appears similar to prior from earlier today. MDM Narrative Medical decision making narrative: Attempted to obtain records. Patient's chart was reviewed, it appears she left Against Medical Advice but returned they attempted to catheterize her but were not able to secondary to patient movement and she refused intubation for catheterization. Patient's labs are not included so unclear if the troponin is trending upper down words. Patient continues to have an unstable anginal type picture with chest pain that waxes and wanes without any clear exacerbating factors. A BNP is also elevated at 1200, she has been short of breath. Patient was started on heparin, she was given a nitro sublingual which has improved her symptoms and started on nitro drip. Lasix 40 mg was also given. Patient states she has anaphylactic reaction to aspirin and this was not given. She is on Effient. I spoke with Dr. Olea at [facility] who accepts for transfer. I also spoke with Dr. Garrett afterwards and he agrees with transfer, he did review records and it appears based on their troponin versus ours that it is trending down. I did discuss with patient at length she is agreeable to seeing the hospitalist as well who is the traffic court magistrate, she is also open to intubation if needed for catheterization if Cardiology elects to do so. We discussed at length that if she is not willing to work with her providers there she cannot get the best care. Patient was offered transfer to other facilities including [facility] and [facility] multiple times prior to and after discussion with [facility] physicians in light of her negative experience while at [facility], at this time she elects to go to [facility]. She states that she is willing to work with her providers both hospitalist and cardiology team. Patient chest pain, scapular pain is improved, still a little short of breath but not worsening. Dr. Garrett did call back to check on patient. He asked that we fax EKG's too him and we did. Discharge Plan Departure Patient Disposition: General Acute Hospital Clinical Impression: ACS (acute coronary syndrome), CHF (congestive heart failure) Discharge Date/Time: 11/08/18 15:00 Interventions: ED Discharge Assessment Last Done: 11/08/18 15:00 Prescriptions: No Action nitrofurantoin monohyd/m-cryst [Macrobid] 100 MG capsule 100 mg PO BID 7 Days Qty: 0 RF: 0 Referrals: Melly Bah MD [Primary Care Provider] -
--- NOTE | 2018-11-08 10:53 | DI.RAD.S_ITS ---
PROCEDURE: XR CHEST 1V INDICATIONS: back pain, sob intermittent, recent OR end of October TECHNIQUE: One view of the chest was acquired. COMPARISON: [facility], CR, XR CHEST 1 VIEW, 10/30/2018, 4:47. [facility], CR, XR CHEST 1 VIEW, 11/03/2018, 19:18. [facility], CR, XR CHEST 1 VIEW, 10/30/2018, 23:35. [facility], CR, XR CHEST 1V, 08/14/2018, 17:00. FINDINGS: Surgical changes and devices: None. Lungs and pleura: There are small bilateral pleural effusions, left greater right. The left effusion appears minimally changed, and the right pleural effusion is new. No pneumothorax. Mediastinum: Mediastinal contours appear normal. Heart size is mildly increased. Bones and chest wall: No suspicious bony lesions. Overlying soft tissues appear unremarkable. IMPRESSION: 1. Small bilateral pleural effusions, new on the right side and minimally changed on the left side compared to the last exam. 2. Mild cardiomegaly. Dictated by: Jenny Chicas M.D. on 11/08/2018 at 11:37 Approved by: Jenny Chicas M.D. on 11/08/2018 at 11:39
--- NOTE | 2018-11-08 11:06 | ED_ITS ---
HPI - Chest Pain General Chief Complaint: Chest Pain Stated Complaint: Heart Attack Time Seen by Provider: 11/08/18 10:30 Source: patient and old records reviewed Mode of arrival: wheelchair Limitations: no limitations History of Present Illness HPI narrative: This is a 73-year-old female who is brought in by her friend. Patient comes from home, she states that she was discharged from [facility] for an heart attack on Wednesday the November 04. Patient states that she was feeling pretty well the day afterwards. Since then she has had some shortness of breath, she states it easily go away but she notices it especially nighttime when she is sleeping. She states that the other night she got up to go to the bathroom and she thought her toes look sort of hurd. She has been checking her blood pressure, heart rate on oxygen at home. She states that she will get discomfort but in her back. It is not in her chest. It can be from the left or right side of her scapular area. She isn't sure if this is associated with her episodes of shortness of breath. She has been nauseated occasionally. She has vomited but she states it will be when she drinks water she was sort of in for water will come out and that will be it. She denies any issues with diarrhea or constipation. She denies any new issues with urination but sometimes has problems with urinary retention/hesitancy. She denies any swelling in her lower extremities. She has not tried any the nitro sublingual for her symptoms. Patient states that she was catheterized, she does not know stated a stent but she states that they wanted to intubate her for a repeat catheterization and she refused. She did have 1 episode of AFib the hospital. They gave her amiodarone which she has been taking. She states she has multiple medication allergies. 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 She takes medication for hypertension, dyslipidemia. She is on Effient. Patient is any tobacco, no recent alcohol or illicit. Dr. Cardoso is her j2ee software engineer. Patient also added that once she got home she took about her CPAP and tried to clean it and this may be contributing to her difficulty with sleeping and breathing at night. Related Data Previous Rx's Medication Instructions Recorded nitrofurantoin monohyd/m-cryst 100 mg PO BID 7 Days #0 cap 05/01/16 [Macrobid] Allergies Allergy/AdvReac Type Severity Reaction Status Date / Time adenosine [ADENOSINE] Allergy Unknown Verified 11/08/18 10:35 Opioids - Morphine Analogues Allergy Unknown Verified 11/08/18 10:35 [OPIOIDS - MORPHINE ANALOGUES] Mvvaopr-Jpf-Pdi Reductase Allergy Unknown Verified 11/08/18 10:35 Inhibitor [[id number]-VGE REDUCTASE INHIBITOR] Sulfa (Sulfonamide Allergy Unknown Verified 11/08/18 10:35 Antibiotics) [SULFA (SULFONAMIDE ANTIBIOTICS)] Review of Systems Review of Systems ROS Unobtainable: All systems reviewed & are unremarkable except as noted in HPI and below Constitutional Denies chills, Denies fever(s), Denies lethargy and Denies weakness Cardiovascular Denies chest pain, Denies diaphoresis, Denies syncope, Denies rapid heart rate, Denies edema, Denies radiating jaw, neck or arm pain, Denies palpitations, Denies dyspnea, Reports dyspnea on exertion, Denies orthopnea and Denies other (pain right or left) Respiratory Denies chest congestion, Denies cough, Denies dyspnea, Reports dyspnea on exertion and Denies wheezing Gastrointestinal Gastrointestinal: Denies abdominal pain, Denies change in bowel habits, Denies diarrhea, Denies nausea and Denies vomiting Genitourinary Denies hematuria, Denies flank pain, Denies urinary incontinence, Reports urinary hesitancy and Denies urinary urgency Musculoskeletal Reports back pain (scapular discomfort.) Integumentary/Breasts Denies erythema Neurologic Denies syncope and Denies weakness Endocrine Denies palpitations Allergic/Immunologic Denies wheezing [facility] Medical History Coronary artery disease (Acute) Renal cyst, left (Acute) Acute coronary syndrome (Acute) Chest pain (Inactive) Surgical History H/O coronary angioplasty (Acute) Social History Smoking Status: Former smoker Social History Smoking Status: Former smoker Exam Narrative Exam Narrative: GENERAL: Alert and oriented x three, well-nourished, well-appearing female in no acute distress. HEENT: Head normocephalic, atraumatic, EOMI, pupils reactive, face symmetric, moist mucous membranes NECK: Supple, full range of motion CARDIOVASCULAR: Regular rate and rhythm without murmurs, rubs or gallops. No DVT. Bilateral pulses lower extremities, no edema bilateral lower extremities. RESPIRATORY: Breath sounds equal bilaterally, no wheezes rales or rhonchi. No tachypnea, no accessory muscle use. ABDOMEN: Soft, nontender. Normoactive bowel sounds all 4 quadrants. No guarding or rebound, rigidity, no mass : No CVA tenderness EXTREMITIES: Normal range of motion, no clubbing or edema. Neurovascularly intact NEUROLOGICAL: Cranial nerves II through XII grossly intact. Moving all extremities SKIN: Warm, dry, no petechiae, no rashes or lesions. Initial Vital Signs Initial Vital Signs: Vital Signs Temperature 97.0 F L 11/08/18 10:35 Pulse Rate 72 11/08/18 10:35 Respiratory Rate 22 11/08/18 10:35 Blood Pressure 117/71 11/08/18 10:35 Pulse Oximetry 93 11/08/18 10:35 Course Orders Ordered: ED Orders 11/08/18 10:34 EKG-12 Lead Stat 11/08/18 10:53 XR chest 1V Stat 11/08/18 11:05 B Type Natriuretic Peptide Stat Complete Blood Count AUTO DIFF Stat Comprehensive Metabolic Panel Stat Lipase Stat Troponin & CK Cardiac Panel Stat 11/08/18 12:20 EKG-12 Lead Stat Discontinued Medications Acetaminophen (Tylenol) 650 mg PO NOW ONE Stop: 11/08/18 13:18 Last Admin: 11/08/18 13:18 Dose: 650 mg Albuterol/Ipratropium (Duoneb) 3 ml INH NOW ONE Stop: 11/08/18 13:29 Last Admin: 11/08/18 13:36 Dose: 3 ml Furosemide (Lasix) 40 mg IV NOW ONE Stop: 11/08/18 12:37 Last Admin: 11/08/18 13:16 Dose: 40 mg Heparin Sodium (Porcine) (Heparin) 5,000 unit IV NOW ONE Stop: 11/08/18 12:09 Last Admin: 11/08/18 12:16 Dose: 5,000 unit Sodium Chloride (Normal Saline 0.9%) 1,000 mls @ 150 mls/hr IV CONT DANIELA Last Infusion: 11/08/18 14:58 Dose: 0 mls/hr Admin: 11/08/18 11:27 Dose: 150 mls/hr Heparin Sodium/Dextrose (Heparin Drip) 25,000 unit in 500 mls @ 19.377 mls/hr IV CONT DANIELA; Protocol Last Infusion: 11/08/18 14:58 Dose: 0 units/kg/hr, 0 mls/hr Admin: 11/08/18 12:16 Dose: 12 units/kg/hr, 19.377 mls/hr Nitroglycerin (Nitroglycerin) 50 mg in 250 mls @ 1.5 mls/hr IV TITRATE DANIELA; Protocol Last Titration: 11/08/18 14:58 Dose: 0 mcg/min, 0 mls/hr Titration: 11/08/18 13:10 Dose: 20 mcg/min, 6 mls/hr Titration: 11/08/18 13:05 Dose: 10 mcg/min, 3 mls/hr Admin: 11/08/18 13:00 Dose: 5 mcg/min, 1.5 mls/hr Nitroglycerin (Nitrostat) 0.4 mg SL [id number] PRN PRN Reason: Chest Pain Last Admin: 11/08/18 12:26 Dose: 0.4 mg Vital Signs - 8 hr 11/08/18 11:00 11/08/18 12:00 11/08/18 12:25 Pulse Rate 70 64 70 Respiratory Rate 22 18 23 Blood Pressure Blood Pressure [Left Arm] 123/75 115/82 125/68 Pulse Oximetry 94 95 92 11/08/18 12:26 11/08/18 12:45 11/08/18 12:50 Pulse Rate 71 80 78 Respiratory Rate 23 Blood Pressure 115/82 Blood Pressure [Left Arm] 144/74 H Pulse Oximetry 96 11/08/18 13:00 11/08/18 13:15 11/08/18 13:37 Pulse Rate 80 80 78 Respiratory Rate 24 16 Blood Pressure 131/91 H Blood Pressure [Left Arm] 129/86 Pulse Oximetry 95 94 11/08/18 14:14 11/08/18 14:50 Pulse Rate 61 73 Respiratory Rate 21 29 H Blood Pressure Blood Pressure [Left Arm] 97/64 99/58 L Pulse Oximetry 94 96 MDM - Chest Pain Lab Data Attestation: I reviewed the patient's lab results. Result diagrams: 11/08/18 11:05 11/08/18 11:05 Lab Results 11/08/18 11/08/18 11/08/18 Range/Units 11:05 11:05 11:05 WBC 9.7 (4.5-11.0) X10^3/uL RBC 4.25 (4.0-5.2) X10^6/uL Hgb 11.7 L (12.0-16.0) g/dL Hct 34.9 L (36-46) % MCV 82.2 (80-100) fL MCH 27.6 (26-34) PG MCHC 33.5 (30-36) % RDW 15.1 H (11.6-14.8) % Plt Count 260 (150-400) X10^3/uL Neut % (Auto) 70.8 (50-75) % Lymph % (Auto) 18.9 L (25-40) % Mcdonough % (Auto) 8.2 (3-14) % Eos % (Auto) 1.1 L (2-4) % Baso % (Auto) 1.0 (0-2) % Neut # (Auto) 6900 (7841-0147) /uL Lymph # (Auto) 1800 (6450-2971) /uL Mcd[place]ough # (Auto) 800 (0-900) /uL Eos # (Auto) 100 (0-450) /uL Baso # (Auto) 100 (0-100) /uL Sodium 136 L (137-145) mmol/L Potassium 4.4 (3.4-5.1) mmol/L Chloride 101 (98-107) mmol/L Carbon Dioxide 28 (22-32) mmol/L BUN 13 (7-17) mg/dL Creatinine 0.70 (0.52-1.04) mg/dL Estimated GFR > 60.0 (>60) mL/min BUN/Creatinine Ratio 18.6 (6-22) Glucose 133 H (80-110) mg/dL Calcium 9.6 (8.4-10.2) mg/dL Total Bilirubin 0.9 (0.2-1.3) mg/dL AST 20 (14-36) IU/L ALT 21 (9-52) IU/L Alkaline Phosphatase 77 (38-126) U/L Total Creatine Kinase 44 (30-135) U/L CK-MB (CK-2) TNP CK-MB (CK-2) Rel Index TNP Troponin I 3.590 H* (0.01-0.034) ng/mL B-Natriuretic Peptide 1240 H (<100) Total Protein 6.9 (6.3-8.2) g/dL Albumin 3.9 (3.5-5.0) g/dL Globulin 3.0 (1.7-4.1) g/dL Albumin/Globulin Ratio 1.3 (1.0-2.8) Lipase 31 (23-300) U/L Imaging Data Chest x-ray: Radiologist's impression: [address] [address] XRay Report Signed Patient: Soren Landrum CMR#: [id number] : 5Acct:[id number] Age/Sex: 73 / FDate of Service: 11/08/18 Loc: ED Accession Number: [id number] Procedure: XR chest 1V Ordering Provider: Myrtle Aguiar D.O. PROCEDURE: XR CHEST 1V INDICATIONS: back pain, sob intermittent, recent OR end of October TECHNIQUE: One view of the chest was acquired. COMPARISON: [facility], CR, XR CHEST 1 VIEW, 10/30/2018, 4:47. [facility], CR, XR CHEST 1 VIEW, 11/03/2018, 19:18. [facility], CR, XR CHEST 1 VIEW, 10/30/2018, 23:35. [facility], CR, XR CHEST 1V, 08/14/2018, 17:00. FINDINGS: Surgical changes and devices: None. Lungs and pleura: There are small bilateral pleural effusions, left greater righ t. The left effusion appears minimally changed, and the right pleural effusion is new. No pneumothorax. Mediastinum: Mediastinal contours appear normal. Heart size is mildly increased. Bones and chest wall: No suspicious bony lesions. Overlying soft tissues appear unremarkable. IMPRESSION: 1. Small bilateral pleural effusions, new on the right side and minimally changed on the left side compared to the last exam. 2. Mild cardiomegaly. Dictated by: Jenny Chicas M.D. on 11/08/2018 at 11:37 Approved by: Jenny Chicas M.D. on 11/08/2018 at 11:39 ECG Data Attestation: I personally reviewed and interpreted this ECG as follows: Prior ECG tracings: available for review Interpretation: Sinus rhythm rate of 72 ND 154 QRS of 93 QTC of 446. Patient has ST depression in precordial leads V1 through V4. Patient has prior EKG from 3 03/26/[address] depression. I do not have access to prior EKGs from her [facility] stay at the end of October. EKG 2. Continues to say show ST depression in he to through move 4, elevations not appreciated. Patient's EKG appears similar to prior from earlier today. MDM Narrative Medical decision making narrative: Attempted to obtain records. Patient's chart was reviewed, it appears she left Against Medical Advice but returned they attempted to catheterize her but were not able to secondary to patient movement and she refused intubation for catheterization. Patient's labs are not included so unclear if the troponin is trending upper down words. Patient continues to have an unstable anginal type picture with chest pain that waxes and wanes without any clear exacerbating factors. A BNP is also elevated at 1200, she has been short of breath. Patient was started on heparin, she was given a nitro sublingual which has improved her symptoms and started on nitro drip. Lasix 40 mg was also given. Patient states she has anaphylactic reaction to aspirin and this was not given. She is on Effient. I spoke with Dr. Olea at [facility] who accepts for transfer. I also spoke with Dr. Garrett afterwards and he agrees with transfer, he did review records and it appears based on their troponin versus ours that it is trending down. I did discuss with patient at length she is agreeable to seeing the hospitalist as well who is the j2ee software engineer, she is also open to intubation if needed for catheterization if Cardiology elects to do so. We discussed at length that if she is not willing to work with her providers there she cannot get the best care. Patient was offered transfer to other facilities including [facility] and [facility] multiple times prior to and after discussion with [facility] physicians in light of her negative experience while at [facility], at this time she elects to go to [facility]. She states that she is willing to work with her providers both hospitalist and cardiology team. Patient chest pain, scapular pain is improved, still a little short of breath but not worsening. Dr. Garrett did call back to check on patient. He asked that we fax EKG's too him and we did. Discharge Plan Departure Patient Disposition: [facility] Clinical Impression: ACS (acute coronary syndrome), CHF (congestive heart failure) Discharge Date/Time: 11/08/18 15:00 Interventions: ED Discharge Assessment Last Done: 11/08/18 15:00 Prescriptions: No Action nitrofurantoin monohyd/m-cryst [Macrobid] 100 MG capsule 100 mg PO BID 7 Days Qty: 0 RF: 0 Referrals: Melly Bah MD [Primary Care Provider] -
--- NOTE | 2018-11-08 11:13 | PC.NURSE ---
Stented over the weekend for CO. Noticed this morning that her toes were hurd and was concerned. Also has CPAP machine that may not be working, because she is not able to breathe well at night. Feels extremely short of breath at night. At this time, she denies chest pain and dyspnea.
[2018-11-08 11:16] LABS: Add Manual Diff / Slide Review NO; Basophils Absolute Auto 100 /uL (0-100); Eosinophils Absolute Auto 100 /uL (0-450); Eosinophils Percent Auto 1.1 % (2-4); Hematocrit 34.9 % (36-46); Hemoglobin 11.7 g/dL (12.0-16.0); Lymphocytes Absolute Auto 1800 /uL (1100-4500); Lymphocytes Percent Auto 18.9 % (25-40); Mean Corpuscular HGB Conc 33.5 % (30-36); Mean Corpuscular Hemoglobin 27.6 PG (26-34); Mean Corpuscular Volume 82.2 fL (80-100); Monocytes Absolute Auto 800 /uL (0-900); Monocytes Percent Auto 8.2 % (3-14); Neutrophils Absolute Auto 6900 /uL (1500-7000); Neutrophils Percent Auto 70.8 % (50-75); Platelet Count 260 X10^3/uL (150-400); Red Blood Cell Count 4.25 X10^6/uL (4.0-5.2); Red Cell Distribution Width 15.1 % (11.6-14.8); White Blood Cell Count 9.7 X10^3/uL (4.5-11.0)
[2018-11-08 11:27] LABS: Alanine Aminotransferase 21 IU/L (9-52); Albumin 3.9 g/dL (3.5-5.0); Albumin Globulin Ratio 1.3 (1.0-2.8); Alkaline Phosphatase 77 U/L (38-126); Aspartate Aminotransferase 20 IU/L (14-36); BUN Creatinine Ratio 18.6 (6-22); Bilirubin Total 0.9 mg/dL (0.2-1.3); Blood Urea Nitrogen 13 mg/dL (7-17); Calcium 9.6 mg/dL (8.4-10.2); Carbon Dioxide 28 mmol/L (22-32); Chloride 101 mmol/L (98-107); Creatine Kinase 44 U/L (30-135); Estimated Glomerular Filt Rate > 60.0 mL/min (>60); Glucose 133 mg/dL (80-110); Lipase 31 U/L (23-300); Potassium 4.4 mmol/L (3.4-5.1); Sodium 136 mmol/L (137-145); Total Protein 6.9 g/dL (6.3-8.2)
[2018-11-08] MEDS: SODIUM CHLORIDE 0.9% 1,000 ML 150 ML IV (11:27)
[2018-11-08 11:31] LABS: B Type Natriuretic Peptide 1240 (<100)
[2018-11-08 12:04] LABS: HEMOLYSIS 21 (0-50)
[2018-11-08] MEDS: HEPARIN 5,000 UNIT/ML VIAL 5000 UNIT IV (12:16)
[2018-11-08] MEDS: HEPARIN DRIP 25,000 UNIT/500 ML IV.SOLN 19.377 UNIT IV (12:16)
[2018-11-08] MEDS: NITROGLYCERIN 0.4 MG SL TAB SL (12:26)
[2018-11-08] MEDS: NITROGLYCERIN 50 MG/250 ML INFUS..BTL IV (13:00)
--- NOTE | 2018-11-08 13:04 | PC.NURSE ---
1230 - Spoke with Judi Nursing die casting supervisor at [facility], have progressive care beds available for patient, will call hospitalist.
[2018-11-08] MEDS: FUROSEMIDE 40 MG/4 ML VIAL IV (13:16)
[2018-11-08] MEDS: ACETAMINOPHEN 325 MG TABLET 650 MG PO (13:18)
[2018-11-08] MEDS: ALBUTEROL/IPRATROPIUM 3 ML AMPUL INH (13:36)
== END 2018-11-08 15:00 | disposition short-term general hospital (02) ==
PROVIDERS: Emergency Provider Emergency Medicine; PCP Internal Medicine
DX: I24.9 Acute ischemic heart disease, unspecified (principal); I50.9 Heart failure, unspecified
CPT/HCPCS: 36415; 36591; 71045; 80053; 82550; 83690; 83880; 84484; 85025; 93005; 96361; 96365; 96366; 96368; 96375; 99285; 99291; J1644; J1940

== ENCOUNTER 2019-01-10 18:20 | Emergency (ER) | payer OTHER, SELFPAY ==
[2019-01-10 18:20] VITALS: BP 146/79; PULSE 78; RESP 18; TEMP 36.6; O2SAT 98
--- NOTE | 2019-01-10 18:47 | ED.FEMALEGU ---
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 Patient has an upcoming appointment with gynecology next week to address the prolapse. She presents at the request of her primary care provider for evaluation of difficulty starting her urine stream. She has to sit on the toilet for quite a long time and eventually the urine leaks out. She's had prolapse for quite some time. She has a little tenderness on her R flank. She denies fever or chills. She's had no nausea or vomiting. MD Complaint: dysuria and other Severity: mild Quality: Aching Duration: constant Related Data Allergies Allergy/AdvReac Type Severity Reaction Status Date / Time adenosine [ADENOSINE] Allergy Unknown Verified 01/10/19 20:08 Opioids - Morphine Analogues Allergy Unknown Verified 01/10/19 20:08 [OPIOIDS - MORPHINE ANALOGUES] Frgeqtq-Rda-Kbo Reductase Allergy Unknown Verified 01/10/19 20:08 Inhibitor [[id number]-ZTW-ANU REDUCTASE INHIBITOR] Sulfa (Sulfonamide Allergy Unknown Verified 01/10/19 20:08 Antibiotics) [SULFA (SULFONAMIDE ANTIBIOTICS)] Review of Systems Constitutional Denies chills, Denies fever(s), Denies lethargy and Denies weakness Eyes Denies change in vision, Denies eye discharge, Denies irritation and Denies loss of vision ENT Ears, Nose, Mouth, and Throat: Denies change in voice, Denies neck pain and Denies sore throat Cardiovascular Denies chest pain, Denies irregular heart rhythm, Denies lightheadedness, Denies palpitations, Denies dyspnea, Denies dyspnea on exertion and Denies orthopnea Respiratory Denies cough, Denies dyspnea, Denies dyspnea on exertion and Denies wheezing Gastrointestinal Gastrointestinal: Denies abdominal pain, Denies change in bowel habits, Denies diarrhea, Denies nausea and Denies vomiting Genitourinary Denies hematuria, Denies flank pain, Denies urinary incontinence and Reports urinary urgency Comments: difficulaty Musculoskeletal Denies neck pain Integumentary/Breasts Denies pruritus, Denies erythema, Denies rash and Denies wounds Neurologic Denies confusion, Denies loss of vision and Denies weakness Psychiatric Denies anxiety, Denies confusion, Denies depression, Denies homicidal ideation and Denies suicidal ideation Endocrine Denies palpitations Hematologic/Lymphatic Denies easy bruising Allergic/Immunologic Denies wheezing [facility] Social History Smoking Status: Former smoker Exam Initial Vital Signs Initial Vital Signs: Vital Signs Temperature 97.9 F 01/10/19 18:20 Pulse Rate 78 01/10/19 18:20 Respiratory Rate 18 01/10/19 18:20 Blood Pressure 146/79 H 01/10/19 18:20 Pulse Oximetry 98 01/10/19 18:20 Course Orders Ordered: ED Orders 01/10/19 18:10 Urinalysis and Microscopic Stat 01/10/19 18:56 Basic Metabolic Panel Stat Complete Blood Count AUTO DIFF Stat Vital Signs - 8 hr 01/10/19 18:20 Temperature 97.9 F Pulse Rate 78 Respiratory Rate 18 Blood Pressure 146/79 H Pulse Oximetry 98 MDM - Female Genitourinary Lab Data Result diagrams: 01/10/19 18:56 01/10/19 18:56 Lab Results 01/10/19 01/10/19 01/10/19 Range/Units 18:10 18:56 18:56 WBC 5.9 (4.5-11.0) X10^3/uL RBC 4.25 (4.0-5.2) X10^6/uL Hgb 11.7 L (12.0-16.0) g/dL Hct 34.9 L (36-46) % MCV 82.2 (80-100) fL MCH 27.5 (26-34) PG MCHC 33.5 (30-36) % RDW 15.7 H (11.6-14.8) % Plt Count 172 (150-400) X10^3/uL Neut % (Auto) 52.3 (50-75) % Lymph % (Auto) 35.7 (25-40) % [place]och % (Auto) 8.7 (3-14) % Eos % (Auto) 2.1 (2-4) % Baso % (Auto) 1.2 (0-2) % Neut # (Auto) 3100 (7146-1589) /uL Lymph # (Auto) 2100 (3701-4857) /uL [place]ulloch # (Auto) 500 (0-900) /uL Eos # (Auto) 100 (0-450) /uL Baso # (Auto) 100 (0-100) /uL Sodium 140 (137-145) mmol/L Potassium 3.8 (3.4-5.1) mmol/L Chloride 104 (98-107) mmol/L Carbon Dioxide 27 (22-32) mmol/L BUN 22 H (7-17) mg/dL Creatinine 1.00 (0.52-1.04) mg/dL Estimated GFR 54.2 L (>60) mL/min BUN/Creatinine Ratio 22.0 (6-22) Glucose 112 H (80-110) mg/dL Calcium 9.5 (8.4-10.2) mg/dL Urine Color Yellow Urine Appearance Clear Urine pH 5.0 (4.5-8.0) Ur Specific [place] 1.020 (1.000-1.035) Urine Protein Negative (Negative) Urine Glucose (UA) Negative (Negative) g/dL Urine Ketones Negative (NEGATIVE) Urine Occult Blood Negative (Negative) Urine Nitrate Negative (Negative) Urine Bilirubin Negative (NEGATIVE) Urine Urobilinogen 0.2 (0.2) E.U./dL Ur Leukocyte Esterase Negative (NEGATIVE) Urine RBC None seen (0-5/HPF) Urine WBC None seen (0-5/HPF) Urine Bacteria None seen (None) Ur Culture Indicated? Cult not indicated Micro UA Comment Microscopic normal MDM Narrative Medical decision making narrative: Carranza catheter placed for patient with urinary retention. Labs rule out renal failure and electrolyte abnormalities and urine shows no sign of infection. She has stable vitals and a very reassuring exam. She has a scheduled appointment with gynecology and we gave her contact info for a urogynecologist in [place]. She has been given return precautions and has had her questions answered to her apparent satisfaction Discharge Plan Departure Patient Disposition: Home Clinical Impression: Acute urinary retention, Female bladder prolapse Discharge Date/Time: 01/10/19 20:25 Interventions: ED Discharge Assessment Last Done: 01/10/19 20:25 Instructions: DI for Urinary Retention in Women Activity Restrictions/Additional Instructions: *You have been diagnosed with [acute urinary retention and bladder prolapse] *What to do: * continue to take medications as directed *Follow up with your sourcing intern as planned. Additionally, I've added contact information for Dr. Esther Espinoza of [facility] whom specializes in Urogynecology. *Return to ER if you should have any new, worsening or concerning symptoms Referrals: Esther Espinoza MD [Non-Staff] - Melly Bah MD [Primary Care Provider] -
--- NOTE | 2019-01-10 18:50 | PC.NURSE ---
Noted complete bladder prolapse when placing catheter.
[2019-01-10 18:55] LABS: Bacteria Urine None Seen; RBC Urine None Seen (0-5/HPF); WBC Urine None Seen (0-5/HPF)
[2019-01-10 18:58] LABS: Appearance Urine UA CLEAR; Bilirubin Urine UA NEGATIVE (NEGATIVE); Color Urine UA YELLOW; Glucose Urine UA NEGATIVE (Negative); Ketones Urine UA NEGATIVE (NEGATIVE); Leukocyte Esterase Urine UA NEGATIVE (NEGATIVE); Nitrite Urine UA NEGATIVE (Negative); Occult Blood Urine UA NEGATIVE (Negative); Protein Urine UA NEGATIVE (Negative); Urobilinogen Urine UA 0.2 E.U./dL (0.2)
[2019-01-10 19:04] LABS: Culture Indicated Urine Cult Not Indicated; Urine Comments Microscopic Normal
[2019-01-10 19:04] LABS: Add Manual Diff / Slide Review NO; Basophils Absolute Auto 100 /uL (0-100); Basophils Percent Auto 1.2 % (0-2); Eosinophils Absolute Auto 100 /uL (0-450); Eosinophils Percent Auto 2.1 % (2-4); Hematocrit 34.9 % (36-46); Hemoglobin 11.7 g/dL (12.0-16.0); Lymphocytes Absolute Auto 2100 /uL (1100-4500); Lymphocytes Percent Auto 35.7 % (25-40); Mean Corpuscular HGB Conc 33.5 % (30-36); Mean Corpuscular Hemoglobin 27.5 PG (26-34); Mean Corpuscular Volume 82.2 fL (80-100); Monocytes Absolute Auto 500 /uL (0-900); Monocytes Percent Auto 8.7 % (3-14); Neutrophils Absolute Auto 3100 /uL (1500-7000); Neutrophils Percent Auto 52.3 % (50-75); Platelet Count 172 X10^3/uL (150-400); Red Blood Cell Count 4.25 X10^6/uL (4.0-5.2); Red Cell Distribution Width 15.7 % (11.6-14.8); White Blood Cell Count 5.9 X10^3/uL (4.5-11.0)
[2019-01-10 19:14] LABS: Blood Urea Nitrogen 22 mg/dL (7-17); Calcium 9.5 mg/dL (8.4-10.2); Carbon Dioxide 27 mmol/L (22-32); Chloride 104 mmol/L (98-107); Estimated Glomerular Filt Rate 54.2 mL/min (>60); Glucose 112 mg/dL (80-110); HEMOLYSIS 16 (0-50); Potassium 3.8 mmol/L (3.4-5.1); Sodium 140 mmol/L (137-145)
--- NOTE | 2019-01-10 20:24 | PC.NURSE ---
applied leg bag for urine, taught pt about care while wearing one, pt verbalized understanding and asked pertinent questions
--- NOTE | 2019-01-10 20:36 | ED_ITS ---
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 Patient has an upcoming appointment with gynecology next week to address the prolapse. She presents at the request of her primary care provider for evaluation of difficulty starting her urine stream. She has to sit on the toilet for quite a long time and eventually the urine leaks out. She's had prolapse for quite some time. She has a little tenderness on her R flank. She denies fever or chills. She's had no nausea or vomiting. MD Complaint: dysuria and other Severity: mild Quality: Aching Duration: constant Related Data Allergies Allergy/AdvReac Type Severity Reaction Status Date / Time adenosine [ADENOSINE] Allergy Unknown Verified 01/10/19 20:08 Opioids - Morphine Analogues Allergy Unknown Verified 01/10/19 20:08 [OPIOIDS - MORPHINE ANALOGUES] [id number] Reductase Allergy Unknown Verified 01/10/19 20:08 Inhibitor [[id number] REDUCTASE INHIBITOR] Sulfa (Sulfonamide Allergy Unknown Verified 01/10/19 20:08 Antibiotics) [SULFA (SULFONAMIDE ANTIBIOTICS)] Review of Systems Constitutional Denies chills, Denies fever(s), Denies lethargy and Denies weakness Eyes Denies change in vision, Denies eye discharge, Denies irritation and Denies loss of vision ENT Ears, Nose, Mouth, and Throat: Denies change in voice, Denies neck pain and Denies sore throat Cardiovascular Denies chest pain, Denies irregular heart rhythm, Denies lightheadedness, Denies palpitations, Denies dyspnea, Denies dyspnea on exertion and Denies orthopnea Respiratory Denies cough, Denies dyspnea, Denies dyspnea on exertion and Denies wheezing Gastrointestinal Gastrointestinal: Denies abdominal pain, Denies change in bowel habits, Denies diarrhea, Denies nausea and Denies vomiting Genitourinary Denies hematuria, Denies flank pain, Denies urinary incontinence and Reports urinary urgency Comments: difficulaty Musculoskeletal Denies neck pain Integumentary/Breasts Denies pruritus, Denies erythema, Denies rash and Denies wounds Neurologic Denies confusion, Denies loss of vision and Denies weakness Psychiatric Denies anxiety, Denies confusion, Denies depression, Denies homicidal ideation and Denies suicidal ideation Endocrine Denies palpitations Hematologic/Lymphatic Denies easy bruising Allergic/Immunologic Denies wheezing [facility] Social History Smoking Status: Former smoker Exam Initial Vital Signs Initial Vital Signs: Vital Signs Temperature 97.9 F 01/10/19 18:20 Pulse Rate 78 01/10/19 18:20 Respiratory Rate 18 01/10/19 18:20 Blood Pressure 146/79 H 01/10/19 18:20 Pulse Oximetry 98 01/10/19 18:20 Course Orders Ordered: ED Orders 01/10/19 18:10 Urinalysis and Microscopic Stat 01/10/19 18:56 Basic Metabolic Panel Stat Complete Blood Count AUTO DIFF Stat Vital Signs - 8 hr 01/10/19 18:20 Temperature 97.9 F Pulse Rate 78 Respiratory Rate 18 Blood Pressure 146/79 H Pulse Oximetry 98 MDM - Female Genitourinary Lab Data Result diagrams: 01/10/19 18:56 01/10/19 18:56 Lab Results 01/10/19 01/10/19 01/10/19 Range/Units 18:10 18:56 18:56 WBC 5.9 (4.5-11.0) X10^3/uL RBC 4.25 (4.0-5.2) X10^6/uL Hgb 11.7 L (12.0-16.0) g/dL Hct 34.9 L (36-46) % MCV 82.2 (80-100) fL MCH 27.5 (26-34) PG MCHC 33.5 (30-36) % RDW 15.7 H (11.6-14.8) % Plt Count 172 (150-400) X10^3/uL Neut % (Auto) 52.3 (50-75) % Lymph % (Auto) 35.7 (25-40) % Braxton % (Auto) 8.7 (3-14) % Eos % (Auto) 2.1 (2-4) % Baso % (Auto) 1.2 (0-2) % Neut # (Auto) 3100 (9236-1128) /uL Lymph # (Auto) 2100 (4782-0817) /uL Braxton # (Auto) 500 (0-900) /uL Eos # (Auto) 100 (0-450) /uL Baso # (Auto) 100 (0-100) /uL Sodium 140 (137-145) mmol/L Potassium 3.8 (3.4-5.1) mmol/L Chloride 104 (98-107) mmol/L Carbon Dioxide 27 (22-32) mmol/L BUN 22 H (7-17) mg/dL Creatinine 1.00 (0.52-1.04) mg/dL Estimated GFR 54.2 L (>60) mL/min BUN/Creatinine Ratio 22.0 (6-22) Glucose 112 H (80-110) mg/dL Calcium 9.5 (8.4-10.2) mg/dL Urine Color Yellow Urine Appearance Clear Urine pH 5.0 (4.5-8.0) Ur Specific [place] 1.020 (1.000-1.035) Urine Protein Negative (Negative) Urine Glucose (UA) Negative (Negative) g/dL Urine Ketones Negative (NEGATIVE) Urine Occult Blood Negative (Negative) Urine Nitrate Negative (Negative) Urine Bilirubin Negative (NEGATIVE) Urine Urobilinogen 0.2 (0.2) E.U./dL Ur Leukocyte Esterase Negative (NEGATIVE) Urine RBC None seen (0-5/HPF) Urine WBC None seen (0-5/HPF) Urine Bacteria None seen (None) Ur Culture Indicated? Cult not indicated Micro UA Comment Microscopic normal MDM Narrative Medical decision making narrative: Carranza catheter placed for patient with urinary retention. Labs rule out renal failure and electrolyte abnormalities and urine shows no sign of infection. She has stable vitals and a very jose ssuring exam. She has a scheduled appointment with gynecology and we gave her contact info for a urogynecologist in [place]. She has been given return precautions and has had her questions answered to her apparent satisfaction Discharge Plan Departure Patient Disposition: Home Clinical Impression: Acute urinary retention, Female bladder prolapse Discharge Date/Time: 01/10/19 20:25 Interventions: ED Discharge Assessment Last Done: 01/10/19 20:25 Instructions: DI for Urinary Retention in Women Activity Restrictions/Additional Instructions: *You have been diagnosed with [acute urinary retention and bladder prolapse] *What to do: * continue to take medications as directed *Follow up with your manager progressive care as planned. Additionally, I've added contact information for Dr. Esther Espinoza of [facility] whom specializes in Urogynecology. *Return to ER if you should have any new, worsening or concerning symptoms Referrals: Esther Espinoza MD [Non-Staff] - Melly Bah MD [Primary Care Provider] -
== END 2019-01-10 20:25 | disposition home or self-care (01) ==
PROVIDERS: Emergency Provider Emergency Medicine; PCP Internal Medicine
DX: R33.8 Other retention of urine (principal); N81.10 Cystocele, unspecified
CPT/HCPCS: 36415; 51701; 80048; 81001; 85025; 99283

== ENCOUNTER 2019-01-11 11:44 | Emergency (ER) | payer OTHER, SELFPAY ==
[2019-01-11 11:45] VITALS: BP 139/87; PULSE 56; RESP 18; TEMP 36.9; O2SAT 100
--- NOTE | 2019-01-11 12:17 | PC.NURSE ---
Noted urinary catheter from last night w/ urine in bag but no longer draining. Noted Bladder very prolapsed and full/ tense & extending out of vagina. Old catheter removed. New silicone 16 fr catheter placed w/ clear urine output and complete relief of discomfort.
--- NOTE | 2019-01-11 12:52 | PC.NURSE ---
Called Dr. Tor Rawls ([employer] @ [facility]) No earlier appointments available.
[2019-01-11 13:08] LABS: Bacteria Urine Few (2-10); Culture Indicated Urine Cult Not Indicated; Hyaline Casts Urine 1-5/LPF; RBC Urine 5-10/HPF (0-5/HPF); Squamous Epithelial Cell Urine 1-5 /HPF (0-5/HPF); WBC Urine 0-1/HPF (0-5/HPF)
[2019-01-11 13:37] VITALS: BP 95/51; PULSE 52; RESP 16; O2SAT 93
--- NOTE | 2019-01-11 13:53 | ED.FEMALEGU ---
HPI - Female Genitourinary <Myrtle Poon, WET PROCESS OPERATOR-BC - Last Filed: 01/11/19 14:07> General Chief complaint: Urogenital-Female Stated complaint: cath last night,discomfort Time Seen by Provider: 01/11/19 12:14 Source: patient Mode of arrival: ambulatory Limitations: no limitations History of Present Illness HPI Narrative: The patient is a 73-year-old female former smoker with history of bladder prolapse who presents for a chief complaint of urinary problems. She states that she was seen at this facility yesterday, and diagnosed with bladder retention. This was secondary to prolapse, she had a Carranza catheter placed. She states it worked well overnight up until this afternoon, when she started having severe pain. She states her providers prolapsed again. She denies any fevers nausea vomiting or diarrhea. She denies any chest pain or shortness of breath. She states that the Carranza catheter was working well, but then today after she walked to this afternoon, she felt the prolapse becomes severe. Related Data Home Medications Medication Instructions Recorded Confirmed furosemide 20 mg PO DAILY 01/11/19 01/11/19 lisinopril 1.25 mg PO DAILY 01/11/19 01/11/19 lorazepam 0.5 mg PO DAILY PRN 01/11/19 01/11/19 magnesium oxide 400 mg PO DAILY 01/11/19 01/11/19 metoprolol tartrate 01/11/19 01/11/19 nitroglycerin 0.4 mg SUBLINGUAL PRN PRN 01/11/19 01/11/19 potassium chloride 10 meq PO DAILY 01/11/19 01/11/19 prasugrel 10 mg PO DAILY 01/11/19 01/11/19 Previous Rx's Medication Instructions Recorded nitrofurantoin macrocrystal 100 mg 100 mg PO BEDTIME #20 cap 01/11/19 capsule Allergies Allergy/AdvReac Type Severity Reaction Status Date / Time adenosine [ADENOSINE] Allergy Unknown Verified 01/11/19 12:16 Opioids - Morphine Analogues Allergy Unknown Verified 01/11/19 12:16 [OPIOIDS - MORPHINE ANALOGUES] Mlmaldp-Pdb-Mch Reductase Allergy Unknown Verified 01/11/19 12:16 Inhibitor [[id number] REDUCTASE INHIBITOR] Sulfa (Sulfonamide Allergy Unknown Verified 01/11/19 12:16 Antibiotics) [SULFA (SULFONAMIDE ANTIBIOTICS)] Review of Systems <BRUCE Fraser - Last Filed: 01/11/19 14:07> Review of Systems GENERAL: Denies chills, fatigue, malaise, fever, sweats. HEENT: Denies sinus pain, ear pain, sore throat, difficulty swallowing, dizziness. RESPIRATORY: Denies dyspnea, cough, wheezing, hemoptysis, sputum. CARDIOVASCULAR: Denies chest pain, palpitations, orthopnea, edema, GASTROINTESTINAL: Denies nausea, vomiting, abdominal pain, diarrhea, constipation, melena. : See HPI MUSCULOSKELETAL: denies weakness, joint pain, or bony pain SKIN: Denies rash, skin lesions, or other NEUROLOGIC: Denies weakness, headache, numbness, change in speech, confusion, seizures, incoordination. PSYCHIATRIC: No concerning psychosocial issues. 12 point review of systems is negative except for those stated above PFSH <BRUCE Fraser - Last Filed: 01/11/19 14:07> Medical History Coronary artery disease (Acute) Renal cyst, left (Acute) Acute coronary syndrome (Acute) Chest pain (Inactive) Surgical History H/O coronary angioplasty (Acute) Social History Smoking Status: Former smoker Social History Smoking Status: Former smoker Exam <BRUCE Fraser - Last Filed: 01/11/19 14:07> Narrative Exam Narrative: GENERAL: Elderly female in no acute distress HEAD: Atraumatic. Normocephalic. No temporal or scalp tenderness. EYES: Pupils equal round and reactive. Extraocular motions intact. No scleral icterus. No injection or drainage. ENT: Nose without bleeding, purulent drainage or septal hematoma. Throat without erythema, tonsillar hypertrophy or exudate. Uvula midline. Airway patent. NECK: Trachea midline. No JVD or lymphadenopathy. Supple, nontender, no meningeal signs. CARDIOVASCULAR: Regular rate and rhythm without murmurs, gallops, or rubs. RESPIRATORY: Clear to auscultation. Breath sounds equal bilaterally. No wheezes, rales, or rhonchi. No cough. No increased respiratory effort. No accessory muscle use. GASTROINTESTINAL: Abdomen soft, non-tender, nondistended. No hepato-splenomegaly, or palpable masses. No guarding. Active bowel sounds all 4 quadrants. EXTREMITIES: No clubbing, cyanosis, or edema. No joint tenderness, effusion, or edema noted. BACK: Nontender without deformity or crepitance. No flank tenderness. NEURO: AOx3. SKIN: No rash or erythema. : Performed with Melony DEGREASING SOLUTION MIXER at bedside. Carranza catheter in place. Bladder prolapse evident. No obvious vaginal rashes or discharge Initial Vital Signs Initial Vital Signs: Vital Signs Temperature 98.5 F 01/11/19 11:45 Pulse Rate 56 L 01/11/19 11:45 Respiratory Rate 18 01/11/19 11:45 Blood Pressure 139/87 01/11/19 11:45 Pulse Oximetry 100 01/11/19 11:45 <DO Rosio Schneider Last Filed: 01/11/19 19:09> Initial Vital Signs Initial Vital Signs: Vital Signs Temperature 98.5 F 01/11/19 11:45 Pulse Rate 56 L 01/11/19 11:45 Respiratory Rate 18 01/11/19 11:45 Blood Pressure 139/87 01/11/19 11:45 Pulse Oximetry 100 01/11/19 11:45 Course <BRUCE Fraser - Last Filed: 01/11/19 14:07> Orders Ordered: ED Orders 01/11/19 12:16 Urine Microscopic Stat Vital Signs - 8 hr 01/11/19 11:45 01/11/19 13:37 01/11/19 14:00 Temperature 98.5 F Pulse Rate 56 L 52 L 54 L Respiratory Rate 18 16 17 Blood Pressure 139/87 Blood Pressure [Left Arm] 95/51 L 104/60 Pulse Oximetry 100 93 96 01/11/19 14:27 Temperature Pulse Rate 50 L Respiratory Rate 20 Blood Pressure 118/64 Blood Pressure [Left Arm] Pulse Oximetry 96 <DO Rosio Schneider Last Filed: 01/11/19 19:09> Orders Ordered: ED Orders 01/11/19 12:16 Urine Microscopic Stat Vital Signs - 8 hr 01/11/19 11:45 01/11/19 13:37 01/11/19 14:00 Temperature 98.5 F Pulse Rate 56 L 52 L 54 L Respiratory Rate 18 16 17 Blood Pressure 139/87 Blood Pressure [Left Arm] 95/51 L 104/60 Pulse Oximetry 100 93 96 01/11/19 14:27 Temperature Pulse Rate 50 L Respiratory Rate 20 Blood Pressure 118/64 Blood Pressure [Left Arm] Pulse Oximetry 96 MDM - Female Genitourinary <TAVIA Fraser-BC - Last Filed: 01/11/19 14:07> Lab Data Lab Results 01/11/19 Range/Units 12:16 Urine RBC 5-10/hpf H (0-5/HPF) Urine WBC 0-1/hpf (0-5/HPF) Ur Squamous Epith Cells 1-5 /hpf (0-5/HPF) Urine Bacteria Few (2-10) H (None) Hyaline Casts 1-5/lpf (None) Ur Culture Indicated? Cult not indicated Urine Dip Bedside Urine Glucose Negative Bedside Urine Bilirubin - Negative Bedside Urine Ketone - Negative Urine Specific [place] 1.015 Bedside Urine Occult Blood ++ Bedside Urine pH 5.5 Bedside Urine Protein - Negative Bedside Urine Urobilinogen - Negative Bedside Urine Nitrite - Negative Bedside Urine Leukocytes - Negative Esterase MDM Narrative Medical decision making narrative: The patient is a 73-year-old female who presents with recurrent bladder prolapse. Nursing switched out her Carranza catheter to a silicone one, which increased her comfort. We spoke with the office of her planned OBGYN, Rick Boss who was not able to see her until next week. The patient also states that she has planned follow-up with Dr. Espinoza in [place] next month. However given her repeat visits, I am concerned that she will have recurrencent emergency department visits and decreased patient comfort, I spoke with Dr. Anne who is on-call for OBGYN and able to see the patient at 2:30 p.m.. The patient is agreeable to this and incredibly grateful. Discussed at length coming back to the ER for any acute concerns. Discussed following up with her PCP as well. <Myrtle Aguiar DO - Last Filed: 01/11/19 19:09> Lab Data Lab Results 01/11/19 Range/Units 12:16 Urine RBC 5-10/hpf H (0-5/HPF) Urine WBC 0-1/hpf (0-5/HPF) Ur Squamous Epith Cells 1-5 /hpf (0-5/HPF) Urine Bacteria Few (2-10) H (None) Hyaline Casts 1-5/lpf (None) Ur Culture Indicated? Cult not indicated Urine Dip Bedside Urine Glucose Negative Bedside Urine Bilirubin - Negative Bedside Urine Ketone - Negative Urine Specific [place] 1.015 Bedside Urine Occult Blood ++ Bedside Urine pH 5.5 Bedside Urine Protein - Negative Bedside Urine Urobilinogen - Negative Bedside Urine Nitrite - Negative Bedside Urine Leukocytes - Negative Esterase Discharge Plan Departure Patient Disposition: Home Clinical Impression: Acute urinary retention, Female bladder prolapse, Carranza catheter in place Discharge Date/Time: 01/11/19 14:27 Interventions: ED Discharge Assessment Last Done: 01/11/19 14:27 Instructions: How to Care for Your Carranza Catheter -- Female, DI for Urinary Retention in Women Activity Restrictions/Additional Instructions: You have an appointment with Dr. Anne at 2:30 p.m. Please follow-up with your primary care provider. Please come back to emergency department for any acute concerns. Prescriptions: No Action nitrofurantoin macrocrystal 100 mg capsule 100 mg PO BEDTIME Qty: 20 RF: 0 potassium chloride 10 mEq tablet extended release 10 meq PO DAILY RF: 0 magnesium oxide 400 mg (241.3 mg magnesium) tablet 400 mg PO DAILY RF: 0 lorazepam 0.5 mg tablet 0.5 mg PO DAILY PRN (Reason: Anxiety) RF: 0 nitroglycerin 0.4 mg tablet, sublingual 0.4 mg sublingual PRN PRN (Reason: Chest Pain) RF: 0 furosemide 20 mg tablet 20 mg PO DAILY RF: 0 lisinopril 2.5 mg tablet 1.25 mg PO DAILY RF: 0 metoprolol tartrate 25 mg tablet RF: 0 prasugrel 10 mg tablet 10 mg PO DAILY RF: 0 Referrals: Britney Anne MD [Physician] - Melly Bah MD [Primary Care Provider] - <Myrtle Aguiar DO - Last Filed: 01/11/19 19:09> Cosign ED Attending Michelle Attestation: I was immediately available in the department for consultation. This documentation has been reviewed and I agree with assessment and plan. Supervised by Myrtle Aguiar DO
[2019-01-11 14:00] VITALS: BP 104/60; PULSE 54; RESP 17; O2SAT 96
--- NOTE | 2019-01-11 14:25 | PC.NURSE ---
teaching was done for pt on the use of her bojorquez leg bag. pt verbalized an understanding. pt went home with the large bojorquez bag to change before bed. pt demonstrated technique how to use the large bag and switch it over. pt to Dr. Anne's office for a 1430 appointment
[2019-01-11 14:27] VITALS: BP 118/64; PULSE 50; RESP 20; O2SAT 96
== END 2019-01-11 14:27 | disposition home or self-care (01) ==
PROVIDERS: Emergency Provider Nurse Practitioner Family; PCP Internal Medicine
DX: R33.8 Other retention of urine (principal); N81.10 Cystocele, unspecified; Z96.0 Presence of urogenital implants
CPT/HCPCS: 51705; 81003; 81015; 99283

== ENCOUNTER 2019-01-18 17:43 | Emergency (ER) | payer OTHER, SELFPAY ==
[2019-01-18 21:11] VITALS: BP 134/76; PULSE 80; RESP 20; TEMP 36.3; O2SAT 95
--- NOTE | 2019-01-18 21:14 | PC.NURSE ---
pt concerned she has blood clots coming through folety catheter, pt also concerned because she isn't getting much urine resulting in the bag.
[2019-01-18 23:00] VITALS: BP 101/55
--- NOTE | 2019-01-19 01:32 | ED.FEMALEGU ---
HPI - Female Genitourinary General Chief complaint: Urogenital-Female Stated complaint: BLEEDING FROM CATHETER, ON BLOOD THINNERS Time Seen by Provider: 01/19/19 00:28 Source: patient Mode of arrival: ambulatory Limitations: no limitations History of Present Illness HPI Narrative: Patient comes to the emergency department complaining of right flank pain and gross hematuria. Patient states that she was forming quite a few clots in her urine, and that over the last couple of days, it has been clogging up her Carranza catheter. Patient states that she has not had any fevers or chills. She does feel as though there is a ?burning nini going up my vagina?. Patient denies any nausea or vomiting. No chest symptoms. Patient states that she is following up with Urology and with Dr. Anne for her pelvic issues. Patient states she has had kidney stones prior, and that the right flank pain feels similar. Related Data Home Medications Medication Instructions Recorded Confirmed furosemide 20 mg PO DAILY 01/11/19 01/17/19 lisinopril 1.25 mg PO DAILY 01/11/19 01/17/19 lorazepam 0.5 mg PO DAILY PRN 01/11/19 01/17/19 metoprolol tartrate 01/11/19 01/17/19 nitroglycerin 0.4 mg SUBLINGUAL PRN PRN 01/11/19 01/17/19 potassium chloride 10 meq PO DAILY 01/11/19 01/18/19 prasugrel 10 mg PO DAILY 01/11/19 01/17/19 Previous Rx's Medication Instructions Recorded nitrofurantoin macrocrystal 100 mg 100 mg PO BEDTIME #20 cap 01/11/19 capsule nitrofurantoin monohyd/m-cryst 100 mg PO BID #14 cap 01/19/19 [Macrobid] Allergies Allergy/AdvReac Type Severity Reaction Status Date / Time adenosine [ADENOSINE] Allergy Unknown Verified 01/18/19 17:50 Opioids - Morphine Analogues Allergy Unknown Verified 01/18/19 17:50 [OPIOIDS - MORPHINE ANALOGUES] Qjjdedg-Vxi-Vtv Reductase Allergy Unknown Verified 01/18/19 17:50 Inhibitor [[id number]-IUK REDUCTASE INHIBITOR] Sulfa (Sulfonamide Allergy Unknown Verified 01/18/19 17:50 Antibiotics) [SULFA (SULFONAMIDE ANTIBIOTICS)] Review of Systems Constitutional Denies chills, Denies fever(s), Denies lethargy and Denies weakness Eyes Denies change in vision, Denies eye discharge, Denies irritation and Denies loss of vision ENT Ears, Nose, Mouth, and Throat: Denies change in voice, Denies neck pain and Denies sore throat Cardiovascular Denies chest pain, Denies irregular heart rhythm, Denies lightheadedness, Denies palpitations, Denies dyspnea, Denies dyspnea on exertion and Denies orthopnea Respiratory Denies cough, Denies dyspnea, Denies dyspnea on exertion and Denies wheezing Gastrointestinal Gastrointestinal: Denies abdominal pain, Denies change in bowel habits, Denies diarrhea, Denies nausea and Denies vomiting Comments: Flank pain, right Genitourinary Reports hematuria, Denies flank pain, Denies urinary incontinence and Denies urinary urgency Musculoskeletal Denies neck pain Integumentary/Breasts Denies pruritus, Denies erythema, Denies rash and Denies wounds Neurologic Denies confusion, Denies loss of vision and Denies weakness Psychiatric Denies anxiety, Denies confusion, Denies depression, Denies homicidal ideation and Denies suicidal ideation Endocrine Denies palpitations Hematologic/Lymphatic Denies easy bruising Allergic/Immunologic Denies wheezing [facility], [facility] Medical History Coronary artery disease (Acute) Renal cyst, left (Acute) Acute coronary syndrome (Acute) Chest pain (Inactive) Surgical History H/O coronary angioplasty (Acute) Social History Smoking Status: Former smoker Social History Smoking Status: Former smoker Exam Initial Vital Signs Initial Vital Signs: Vital Signs Temperature 97.4 F L 01/18/19 21:11 Pulse Rate 80 01/18/19 21:11 Respiratory Rate 20 01/18/19 21:11 Blood Pressure 134/76 01/18/19 21:11 Pulse Oximetry 95 01/18/19 21:11 Const General: cooperative and well developed Nutritional Appearance: well nourished Orientation: alert, awake, oriented x3 and not confused [place] Head: normocephalic and atraumatic Ears: external ears normal Nose: external nose normal and No nasal discharge Face and sinus: face symmetric and No dry mucous membranes Mouth: oral mucosae normal and moist mucous membranes Teeth and gingiva: dentition normal Eyes General: appearance normal, both eyes and all related structures Eyelids: eyelids normal Conjunctivae: conjunctivae normal Sclera: sclerae normal Pupils: PERRL EOM: EOM intact bilaterally Neck Neck: normal visual inspection, trachea midline, No lymphadenopathy, No midline deformity and No JVD Lymphatic: No lymphedema Chest Chest: normal inspection of the chest Resp Effort & Inspection: normal respiratory effort, able to speak in complete sentences, no respiratory distress and no use of accessory muscles Auscultation: clear to auscultation bilaterally, no rales, no rhonchi and no wheezes Cardio Rate: regular rate Rhythm: regular rhythm Heart Sounds: no click, no gallops, no murmurs and no rubs Pulses: normal peripheral pulses GI Inspection: non-distended Palpation: soft, no hepatosplenomegaly, No guarding and No pulsatile mass Auscultation: normal bowel sounds Other: Patient has he mild right flank tenderness. No tenderness elsewhere in the abdomen. Back/Spine/Pelvis Back: CVA tenderness (Right, moderate) Cervical Spine: cervical ROM normal and No pain with cervical ROM Thoracic/Lumbar Spine: thoracic and lumbar spine normal to inspection Skin General: no rashes or lesions noted, No jaundice and No petechiae Neuro General: alert, oriented x3, gait normal and no focal motor deficits Speech: speech normal Extrem General: full ROM, no clubbing, cyanosis or edema, no pedal edema and no calf tenderness Psych Appearance: well kempt Mental Status: mental status grossly normal Attitude: cooperative Thought Content: normal and suicidality Judgment: judgment good Course Course Narrative: Patient was worked up with urinalysis and CT KUB. Renal, but not ureteral calculi were noted on CT. Patient was found to have strongly positive leukocyte esterase on her urine dip. Given her symptoms, I felt she should be treated for urinary tract infection. I have discussed the patient's need for follow-up with her primary care physician and urologist, as well as the usual indications for return. Orders Ordered: Discontinued Medications Nitrofurantoin Macrocrystals (Macrobid 100 Mg Capsule) 100 mg PO NOW ONE Stop: 01/19/19 02:26 Last Admin: 01/19/19 02:35 Dose: 100 mg Vital Signs - 8 hr 01/18/19 21:11 01/18/19 23:00 Temperature 97.4 F L Pulse Rate 80 Respiratory Rate 20 Blood Pressure [Left Arm] 134/76 101/55 L Pulse Oximetry 95 MDM - Female Genitourinary Medical Records Attestation: I reviewed the patient's medical records. Lab Data Attestation: I reviewed the patient's lab results. Urine Dip Bedside Urine Glucose Negative Bedside Urine Bilirubin - Negative Bedside Urine Ketone - Negative Urine Specific [place] 1.020 Bedside Urine Occult Blood +++ Bedside Urine pH 6.0 Bedside Urine Protein + 30 Bedside Urine Urobilinogen - Negative Bedside Urine Nitrite - Negative Bedside Urine Leukocytes +/- [address] scan - abdomen: Radiologist's impression: PROCEDURE: CT KIDNEY URETER BLADDER (KUB) INDICATIONS: Right flank pain, feels like kidney stone TECHNIQUE: Noncontrast 5 mm thick sections acquired from the diaphragms to the symphysis. 5 mm thick coronal and sagittal reformats were then performed. For radiation dose reduction, the following was used: automated exposure control, adjustment of mA and/or kV according to patient size. COMPARISON: [facility], CT, ABDOMEN/PELVIS WITH CONTRAST, 08/24/2017, 12:52. FINDINGS: Image quality: Excellent. Lung bases: Lung bases are clear. Heart size is normal. Urinary system: Both kidneys are normal in size. Cluster of right renal calculi measuring up to 2 mm seen. No hydronephrosis or perinephric fat stranding. Both ureters appear non-dilated throughout their expected courses. Bladder is largely decompressed and obscured by streak artifact. Carranza catheter is present. Presumed bilateral renal cysts, grossly unchanged appearance on this unenhanced examination since 08/24/17 Other solid organs: Subcentimeter hypodensity in the left left lobe of the liver, statistically small cyst. Gallbladder surgically absent. Pancreas is normal in contours. Spleen is normal in size. No adrenal nodules. Peritoneum and bowel: Unenhanced bowel loops demonstrate normal wall thickness and caliber. Small hiatal hernia. Normal appendix No free fluid or air. Nodes and vessels: No retroperitoneal or mesenteric adenopathy by size criteria. Aorta and inferior vena cava are normal in caliber. Scattered vascular calcifications seen in the aorta. Small fat containing umbilical hernia. Pelvis: No free pelvic fluid. No inguinal hernias or adenopathy. Bones: No suspicious bony lesions. No vertebral body compression fractures. Spondylosis. IMPRESSION: Nonobstructive sub-5 mm right renal calculi. Bilateral renal cysts. Elsewhere, no acute process. Findings concordant with the preliminary study interpretation provided at the time of the exam. Dictated by: Pierre Banegas M.D. on 01/19/2019 at 7:49 Approved by: Pierre Banegas M.D. on 01/19/2019 at 7:56 Discharge Plan Departure Patient Disposition: Home Clinical Impression: UTI (urinary tract infection) Qualifiers: Urinary tract infection type: acute cystitis Hematuria presence: with hematuria Qualified Code(s): N30.01 - Acute cystitis with hematuria Discharge Date/Time: 01/19/19 02:30 Interventions: ED Discharge Assessment Last Done: 01/19/19 02:30 Instructions: DI for Urinary Tract Infection (UTI) Activity Restrictions/Additional Instructions: Your urine has developed evidence of a urinary tract infection. Your CT scan shows a few stones in the right kidney, but none of them are passing at this time. Your discomfort is most likely from the urinary tract infection, and you have been started on antibiotics in the emergency department. Please follow up with your doctor regarding the urinary issues you are having. Your prescription has been electronically transmitted to [facility] in [place]. Prescriptions: New nitrofurantoin monohyd/m-cryst [Macrobid] 100 mg capsule 100 mg PO BID Qty: 14 RF: 0 No Action nitrofurantoin macrocrystal 100 mg capsule 100 mg PO BEDTIME Qty: 20 RF: 0 potassium chloride 10 mEq tablet extended release 10 meq PO DAILY RF: 0 lorazepam 0.5 mg tablet 0.5 mg PO DAILY PRN (Reason: Anxiety) RF: 0 nitroglycerin 0.4 mg tablet, sublingual 0.4 mg sublingual PRN PRN (Reason: Chest Pain) RF: 0 furosemide 20 mg tablet 20 mg PO DAILY RF: 0 lisinopril 2.5 mg tablet 1.25 mg PO DAILY RF: 0 metoprolol tartrate 25 mg tablet RF: 0 prasugrel 10 mg tablet 10 mg PO DAILY RF: 0 Referrals: Melly Bah MD [Primary Care Provider] -
--- NOTE | 2019-01-19 01:37 | ED_ITS ---
HPI - Female Genitourinary General Chief complaint: Urogenital-Female Stated complaint: BLEEDING FROM CATHETER, ON BLOOD THINNERS Time Seen by Provider: 01/19/19 00:28 Source: patient Mode of arrival: ambulatory Limitations: no limitations History of Present Illness HPI Narrative: Patient comes to the emergency department complaining of right flank pain and gross hematuria. Patient states that she was forming quite a few clots in her urine, and that over the last couple of days, it has been clogging up her Carranza catheter. Patient states that she has not had any fevers or chills. She does feel as though there is a ?burning nini going up my vagina?. Patient denies any nausea or vomiting. No chest symptoms. Patient states that she is following up with Urology and with Dr. Anne for her pelvic issues. Azar ahmadi states she has had kidney stones prior, and that the right flank pain feels similar. Related Data Home Medications Medication Instructions Recorded Confirmed furosemide 20 mg PO DAILY 01/11/19 01/17/19 lisinopril 1.25 mg PO DAILY 01/11/19 01/17/19 lorazepam 0.5 mg PO DAILY PRN 01/11/19 01/17/19 metoprolol tartrate 01/11/19 01/17/19 nitroglycerin 0.4 mg SUBLINGUAL PRN PRN 01/11/19 01/17/19 potassium chloride 10 meq PO DAILY 01/11/19 01/18/19 prasugrel 10 mg PO DAILY 01/11/19 01/17/19 Previous Rx's Medication Instructions Recorded nitrofurantoin macrocrystal 100 mg 100 mg PO BEDTIME #20 cap 01/11/19 capsule nitrofurantoin monohyd/m-cryst 100 mg PO BID #14 cap 01/19/19 [Macrobid] Allergies Allergy/AdvReac Type Severity Reaction Status Date / Time adenosine [ADENOSINE] Allergy Unknown Verified 01/18/19 17:50 Opioids - Morphine Analogues Allergy Unknown Verified 01/18/19 17:50 [OPIOIDS - MORPHINE ANALOGUES] Oeuoyjg-Ozw-Cbc Reductase Allergy Unknown Verified 01/18/19 17:50 Inhibitor [[id number]-[id number] REDUCTASE INHIBITOR] Sulfa (Sulfonamide Allergy Unknown Verified 01/18/19 17:50 Antibiotics) [SULFA (SULFONAMIDE ANTIBIOTICS)] Review of Systems Constitutional Denies chills, Denies fever(s), Denies lethargy and Denies weakness Eyes Denies change in vision, Denies eye discharge, Denies irritation and Denies loss of vision ENT Ears, Nose, Mouth, and Throat: Denies change in voice, Denies neck pain and Denies sore throat Cardiovascular Denies chest pain, Denies irregular heart rhythm, Denies lightheadedness, Denies palpitations, Denies dyspnea, Denies dyspnea on exertion and Denies orthopnea Respiratory Denies cough, Denies dyspnea, Denies dyspnea on exertion and Denies wheezing Gastrointestinal Gastrointestinal: Denies abdominal pain, Denies change in bowel habits, Denies diarrhea, Denies nausea and Denies vomiting Comments: Flank pain, right Genitourinary Reports hematuria, Denies flank pain, Denies urinary incontinence and Denies urinary urgency Musculoskeletal Denies neck pain Integumentary/Breasts Denies pruritus, Denies erythema, Denies rash and Denies wounds Neurologic Denies confusion, Denies loss of vision and Denies weakness Psychiatric Denies anxiety, Denies confusion, Denies depression, Denies homicidal ideation and Denies suicidal ideation Endocrine Denies palpitations Hematologic/Lymphatic Denies easy bruising Allergic/Immunologic Denies wheezing [facility] [place] Medical History Coronary artery disease (Acute) Renal cyst, left (Acute) Acute coronary syndrome (Acute) Chest pain (Inactive) Surgical History H/O coronary angioplasty (Acute) Social History Smoking Status: Former smoker Social History Smoking Status: Former smoker Exam Initial Vital Signs Initial Vital Signs: Vital Signs Temperature 97.4 F L 01/18/19 21:11 Pulse Rate 80 01/18/19 21:11 Respiratory Rate 20 01/18/19 21:11 Blood Pressure 134/76 01/18/19 21:11 Pulse Oximetry 95 01/18/19 21:11 Const General: cooperative and well developed Nutritional Appearance: well nourished Orientation: alert, awake, oriented x3 and not confused [facility] Head: normocephalic and atraumatic Ears: external ears normal Nose: external nose normal and No nasal discharge Face and sinus: face symmetric and No dry mucous membranes Mouth: oral mucosae normal and moist mucous membranes Teeth and gingiva: dentition normal Eyes General: appearance normal, both eyes and all related structures Eyelids: eyelids normal Conjunctivae: conjunctivae normal Sclera: sclerae normal Pupils: PERRL EOM: EOM intact bilaterally Neck Neck: normal visual inspection, trachea midline, No lymphadenopathy, No midline deformity and No JVD Lymphatic: No lymphedema Chest Chest: normal inspection of the chest Resp Effort & Inspection: normal respiratory effort, able to speak in complete sentences, no respiratory distress and no use of accessory muscles Auscultation: clear to auscultation bilaterally, no rales, no rhonchi and no wheezes Cardio Rate: regular rate Rhythm: regular rhythm Heart Sounds: no click, no gallops, no murmurs and no rubs Pulses: normal peripheral pulses GI Inspection: non-distended Palpation: soft, no hepatosplenomegaly, No guarding and No pulsatile mass Auscultation: normal bowel sounds Other: Patient has he mild right flank tenderness. No tenderness elsewhere in the abdomen. Back/Spine/Pelvis Back: CVA tenderness (Right, moderate) Cervical Spine: cervical ROM normal and No pain with cervical ROM Thoracic/Lumbar Spine: thoracic and lumbar spine normal to inspection Skin General: no rashes or lesions noted, No jaundice and No petechiae Neuro General: alert, oriented x3, gait normal and no focal motor deficits Speech: speech normal Extrem General: full ROM, no clubbing, cyanosis or edema, no pedal edema and no calf tenderness Psych Appearance: well kempt Mental Status: mental status grossly normal Attitude: cooperative Thought Content: normal and suicidality Judgment: judgment good Course Course Narrative: Patient was worked up with urinalysis and CT KUB. Renal, but not ureteral calculi were noted on CT. Patient was found to have strongly positive leukocyte esterase on her urine dip. Given her symptoms, I felt she should be treated for urinary tract infection. I have discussed the patient's need for follow-up with her primary care physician and urologist, as well as the usual indications for return. Orders Ordered: Discontinued Medications Nitrofurantoin Macrocrystals (Macrobid 100 Mg Capsule) 100 mg PO NOW ONE Stop: 01/19/19 02:26 Last Admin: 01/19/19 02:35 Dose: 100 mg Vital Signs - 8 hr 01/18/19 21:11 01/18/19 23:00 Temperature 97.4 F L Pulse Rate 80 Respiratory Rate 20 Blood Pressure [Left Arm] 134/76 101/55 L Pulse Oximetry 95 MDM - Female Genitourinary Medical Records Attestation: I reviewed the patient's medical records. Lab Data Attestation: I reviewed the patient's lab results. Urine Dip Bedside Urine Glucose Negative Bedside Urine Bilirubin - Negative Bedside Urine Ketone - Negative Urine Specific [place] 1.020 Bedside Urine Occult Blood +++ Bedside Urine pH 6.0 Bedside Urine Protein + 30 Bedside Urine Urobilinogen - Negative Bedside Urine Nitrite - Negative Bedside Urine Leukocytes +/- [address] scan - abdomen: Radiologist's impression: PROCEDURE: CT KIDNEY URETER BLADDER (KUB) INDICATIONS: Right flank pain, feels like kidney stone TECHNIQUE: Noncontrast 5 mm thick sections acquired from the diaphragms to the symphysis. 5 mm thick coronal and sagittal reformats were then performed. For radiation dose reduction, the following was used: automated exposure control, adjustment of mA and/or kV according to patient size. COMPARISON: [facility], CT, ABDOMEN/PELVIS WITH CONTRAST, 08/24/2017, 12:52. FINDINGS: Image quality: Excellent. Lung bases: Lung bases are clear. Heart size is normal. Urinary system: Both kidneys are normal in size. Cluster of right renal calculi measuring up to 2 mm seen. No hydronephrosis or perinephric fat stranding. Both ureters appear non-dilated throughout their expected courses. Bladder is largely decompressed and obscured by streak artifact. Carranza catheter is present. Presumed bilateral renal cysts, grossly unchanged appearance on this unenhanced examination since 08/24/17 Other solid organs: Subcentimeter hypodensity in the left left lobe of the liver, statistically small cyst. Gallbladder surgically absent. Pancreas is normal in contours. Spleen is normal in size. No adrenal nodules. Peritoneum and bowel: Unenhanced bowel loops demonstrate normal wall thickness and caliber. Small hiatal hernia. Normal appendix No free fluid or air. Nodes and vessels: No retroperitoneal or mesenteric adenopathy by size criteria. Aorta and inferior vena cava are normal in caliber. Scattered vascular calcifications seen in the aorta. Small fat containing umbilical hernia. Pelvis: No free pelvic fluid. No inguinal hernias or adenopathy. Bones: No suspicious bony lesions. No vertebral body compression fractures. Spondylosis. IMPRESSION: Nonobstructive sub-5 mm right renal calculi. Bilateral renal cysts. Elsewhere, no acute process. Findings concordant with the preliminary study interpretation provided at the time of the exam. Dictated by: Pierre Banegas M.D. on 01/19/2019 at 7:49 Approved by: Pierre Banegas M.D. on 01/19/2019 at 7:56 Discharge Plan Departure Patient Disposition: Home Clinical Impression: UTI (urinary tract infection) Qualifiers: Urinary tract infection type: acute cystitis Hematuria presence: with hematuria Qualified Code(s): N30.01 - Acute cystitis with hematuria Discharge Date/Time: 01/19/19 02:30 Interventions: ED Discharge Assessment Last Done: 01/19/19 02:30 Instructions: DI for Urinary Tract Infection (UTI) Activity Restrictions/Additional Instructions: Your urine has developed evidence of a urinary tract infection. Your CT scan shows a few stones in the right kidney, but none of them are passing at this time. Your discomfort is most likely from the urinary tract infection, and you have been started on antibiotics in the emergency department. Please follow up with your doctor regarding the urinary issues you are having. Your prescription has been electronically transmitted to [facility] in [place]. Prescriptions: New nitrofurantoin monohyd/m-cryst [Macrobid] 100 mg capsule 100 mg PO BID Qty: 14 RF: 0 No Action nitrofurantoin macrocrystal 100 mg capsule 100 mg PO BEDTIME Qty: 20 RF: 0 potassium chloride 10 mEq tablet extended release 10 meq PO DAILY RF: 0 lorazepam 0.5 mg tablet 0.5 mg PO DAILY PRN (Reason: Anxiety) RF: 0 nitroglycerin 0.4 mg tablet, sublingual 0.4 mg sublingual PRN PRN (Reason: Chest Pain) RF: 0 furosemide 20 mg tablet 20 mg PO DAILY RF: 0 lisinopril 2.5 mg tablet 1.25 mg PO DAILY RF: 0 metoprolol tartrate 25 mg tablet RF: 0 prasugrel 10 mg tablet 10 mg PO DAILY RF: 0 Referrals: Melly Bah MD [Primary Care Provider] -
[2019-01-19 02:30] VITALS: PULSE 77; RESP 14; O2SAT 97
[2019-01-19] MEDS: NITROFURANTOIN ER 100 MG CAPSULE PO (02:35)
== END 2019-01-19 02:30 | disposition home or self-care (01) ==
PROVIDERS: Emergency Provider Emergency Medicine; PCP Internal Medicine
DX: N30.01 Acute cystitis with hematuria (principal)
CPT/HCPCS: 51798; 74176; 81003; 99283

== ENCOUNTER → 2019-03-07 08:49 | Outpatient (CLI) | payer OTHER, SELFPAY ==
--- NOTE | 2019-03-07 | DI.ECHO.S_ITS ---
[place] [facility]---------+ [facility] +---------+ : : [address] : [address] : : : : [id number] : : : : Phone: [phone]+ Echocardiogram Report + + :Name: SANDRAJESSICA Study Date: 03/07/2019 Height: 67 in : :[facility] Weight: 190 lb : : Gender: Female BSA: 2.0 m2 : :: 1945 Age: 73 yrs BP: 100/55 mmHg: :Reason For Study: CAD : : Performed By: Jesus Alberto Xavier : :Referring: [facility] CARDOSO : + + Interpretation Summary The left ventricle is normal in size. Left ventricular systolic function is low normal. The ejection fraction is estimated to be 50-55%. There is hypokinesis along most of the lateral wall. Diastolic parameters suggest a relaxation abnormality of the left ventricle, consistent with probable normal filling pressures. The right ventricle is normal in size and function. The right ventricular systolic pressure is estimated to be at least 24 mmHg based on an estimated right atrial pressure of 3 mm Hg. Both atria are normal in size. There is no significant valvular heart disease. The ascending aorta is mildly enlarged. Procedure: A two-dimensional transthoracic echocardiogram with color flow and Doppler was performed. The study quality was technically good. There is no prior echocardiogram noted for this patient. The patient was in normal sinus rhythm during the exam. Left Ventricle: The left ventricle is normal in size. There is normal left ventricular wall thickness. Left ventricular systolic function is low normal. The ejection fraction is estimated to be 50-55%. There is hypokinesis along most of the lateral wall. Diastolic parameters suggest a relaxation abnormality of the left ventricle, consistent with probable normal filling pressures. Right Ventricle: The right ventricle is normal in size and function. Atria: Both atria are normal in size. The interatrial septum is intact with no evidence for an atrial septal defect. Mitral Valve: There is mild mitral annular calcification. There is mild mitral regurgitation. The mitral regurgitant jet is eccentrically directed. Aortic Valve: The aortic valve is trileaflet. The aortic valve opens well. No aortic regurgitation is present. Tricuspid Valve: The tricuspid valve is normal in structure and function. The right ventricular systolic pressure is estimated to be at least 24 mmHg based on an estimated right atrial pressure of 3 mm Hg. There is trace tricuspid regurgitation. Pulmonic Valve: The pulmonic valve is normal in structure and function. There is trace pulmonic regurgitation. There is no significant valvular heart disease. Great Vessels: The aortic root is normal size. The ascending aorta is mildly enlarged. The pulmonary artery is normal size. The IVC is of normal diameter and collapses greater than 50% with a sniff. This suggests a low right atrial pressure of 3 mm Hg. Pericardium/ Pleura There is no pericardial effusion. There is no pleural effusion. MMode/2D Measurements & Calculations LVIDd: 5.5 cm LVOT diam: 2.3 cm LVIDs: 4.5 cm Ao root diam: 3.0 cm FS: 18.5 % Aortic Jxn: 2.6 cm EPSS: 0.93 cm asc Aorta Diam: 3.7 cm IVSd: 1.1 cm Ao Arch Diam (Prox Trans): 2.7 cm LVPWd: 1.0 cm LV yo. diameter/BSA (cm/m^2): 2.8 LV sys. diameter/BSA (cm/m^2): 2.3 LA dimension: 3.9 cm RA long axis: 4.4 cm LA A2 area: 18.5 cm2 RA area: 13.0 cm2 LA A4 area: 21.4 cm2 RA vol: 32.7 ml LA length (vol): 5.7 cm RA : 16.5 ml/m2 LA vol: 59.2 ml IVC diam: 1.8 cm LA vol index: 29.9 ml/m2 Doppler Measurements & Calculations Ao V2 max: 166.7 cm/sec LVOT Max Raciel: 120.1 cm/sec Ao V2 mean: 119.6 cm/sec LV V1 max P.8 mmHg Ao max P.1 mmHg LV V1 VTI: 22.3 cm Ao mean P.2 mmHg DIMITRI(I,D): 2.7 cm2 Ao V2 VTI: 33.8 cm DIMITRI(V,D): 3.0 cm2 sev ratio: 0.66 DIMITRI indexed to BSA (cm^2/m^2): 1.4 MV E max raciel: 53.8 cm/sec TR max raciel: 228.8 cm/sec MV A max raciel: 80.2 cm/sec TR max P.9 mmHg MV E/A: 0.67 PA V2 max: 78.1 cm/sec Med Peak E' Raciel: 3.1 cm/sec PA V2 mean: 55.4 cm/sec E/E' med: 17.4 PA mean P.3 mmHg Lat Peak E' Raciel: 3.1 cm/sec PA pr(Accel): 19.1 mmHg E/E' lat: 17.4 PA Accel Time: 0.13 sec E/e' average: 17.4 MV dec time: 0.28 sec SV([facility]): 92.2 ml Reading Physician:12:21 PM
== END ==
PROVIDERS: Family Provider Internal Medicine; PCP Internal Medicine; Visit Provider Internal Medicine Cardiovascular Disease
DX: I34.0 Nonrheumatic mitral (valve) insufficiency (principal); I25.10 Atherosclerotic heart disease of native coronary artery without angina pectoris; I77.89 Other specified disorders of arteries and arterioles
CPT/HCPCS: 93306

== ENCOUNTER → 2019-03-13 16:18 | Outpatient (ROUT) | payer OTHER, SELFPAY | PROVIDERS: Family Provider Internal Medicine; PCP Internal Medicine; Visit Provider Internal Medicine | DX: R19.7 Diarrhea, unspecified (principal) | CPT/HCPCS: 87177 ==

== ENCOUNTER 2019-03-22 10:12 | Emergency (ER) | payer OTHER, SELFPAY ==
[2019-03-22 10:20] VITALS: BP 106/77; PULSE 64; RESP 16; TEMP 36.2; O2SAT 96
[2019-03-22] MEDS: TET,DIPH,PERTUSS(ACELL),VAC/PF 0.5 ML SYRINGE IM (10:29)
[2019-03-22] MEDS: LIDO 1%/SOD BICARB 8.4% (10ML) 10 ML SYRINGE INJ (10:31)
[2019-03-22] MEDS: BACITRACIN OINT 0.9 GM PCKT 1 APPLIC TOP (10:38)
--- NOTE | 2019-03-22 10:43 | ED.UPPEXIN ---
HPI - Extremity Injury (Upper) General Chief Complaint: Extremity Injury, Upper Stated Complaint: right hand ring finger lac/on blood thinners today Time Seen by Provider: 03/22/19 10:17 Source: patient Mode of arrival: Ambulatory Limitations: no limitations History of Present Illness HPI narrative: Patient comes emergency department complaining of a laceration to her right ring finger tip after tripping and falling and catching her hand on a he great. Patient denies any other injuries. She states she came in because she is not sure if she needs stitches or not. No limitation to range of motion of her finger. No other complaints at this time. Last tetanus was about 10 years ago. Related Data Home Medications Medication Instructions Recorded Confirmed furosemide 20 mg PO DAILY 01/11/19 03/22/19 lisinopril 1.25 mg PO DAILY 01/11/19 03/22/19 lorazepam 0.5 - 1 mg PO DAILY PRN 01/11/19 03/22/19 metoprolol tartrate 25 mg PO DAILY 01/11/19 03/22/19 nitroglycerin 0.4 mg SUBLINGUAL PRN PRN 01/11/19 03/22/19 potassium chloride 10 meq PO DAILY 01/11/19 03/22/19 prasugrel 10 mg PO DAILY 01/11/19 03/22/19 estradiol [Estrace] 0.5 gram VAG 2XW 03/22/19 03/22/19 Previous Rx's Medication Instructions Recorded nitrofurantoin macrocrystal 100 mg 100 mg PO BEDTIME #30 cap 01/24/19 capsule Allergies Allergy/AdvReac Type Severity Reaction Status Date / Time adenosine [ADENOSINE] Allergy Unknown Verified 03/09/19 16:48 Opioids - Morphine Analogues Allergy Unknown Verified 03/09/19 16:48 [OPIOIDS - MORPHINE ANALOGUES] [id number] Reductase Allergy Unknown Verified 03/09/19 16:48 Inhibitor [[id number] REDUCTASE INHIBITOR] Sulfa (Sulfonamide Allergy Unknown Verified 03/09/19 16:48 Antibiotics) [SULFA (SULFONAMIDE ANTIBIOTICS)] Review of Systems Constitutional Constitutional: Denies chills, Denies fatigue, Denies fever(s), Denies frequent falls, Denies lethargy and Denies weakness Eyes Eyes: Denies change in vision, Denies eye discharge, Denies irritation and Denies loss of vision ENT Ears, Nose, Mouth, and Throat: Denies change in voice, Denies dizziness, Denies neck pain, Denies sore throat and Denies throat swelling Cardiovascular Cardiovascular: Denies chest pain, Denies irregular heart rhythm, Denies lightheadedness, Denies palpitations, Denies dyspnea, Denies dyspnea on exertion and Denies orthopnea Respiratory Respiratory: Denies cough, Denies dyspnea, Denies dyspnea on exertion and Denies wheezing Gastrointestinal Gastrointestinal: Denies abdominal pain, Denies change in bowel habits, Denies diarrhea, Denies nausea and Denies vomiting Genitourinary Genitourinary: Denies hematuria, Denies flank pain, Denies urinary incontinence and Denies urinary urgency Musculoskeletal Musculoskeletal: Denies back pain, Denies muscle weakness, Denies neck pain, Denies numbness and Denies tingling Integumentary/Breasts Skin/Breast: Denies pruritus, Denies erythema and Denies rash Comments: Laceration right ring finger Neurologic Neurologic: Denies behavioral changes, Denies confusion, Denies dizziness, Denies frequent falls, Denies loss of vision, Denies numbness, Denies tingling and Denies weakness Psychiatric Psychiatric: Denies anxiety, Denies behavioral changes, Denies confusion, Denies depression, Denies homicidal ideation and Denies suicidal ideation Endocrine Endocrine: Denies fatigue, Denies flushing and Denies palpitations Hematologic/Lymphatic Hematologic/Lymphatic: Denies easy bruising Allergic/Immunologic Allergic/Immunologic: Denies urticaria, Denies throat swelling and Denies wheezing Patient History Social History Smoking Status: Former smoker alcohol intake frequency: 0-2 drinks per day Substance Use Type: does not use Exam Initial Vital Signs Initial Vital Signs: Vital Signs Temperature 97.2 F L 03/22/19 10:20 Pulse Rate 64 03/22/19 10:20 Respiratory Rate 16 03/22/19 10:20 Blood Pressure 106/77 03/22/19 10:20 Pulse Oximetry 96 03/22/19 10:20 Const General: cooperative and well developed Nutritional Appearance: well nourished Orientation: alert, awake, oriented x3 and not confused HENMT Head: normocephalic and atraumatic Ears: external ears normal and TM's normal bilaterally Nose: external nose normal and No nasal discharge Face and sinus: sinuses nontender, face symmetric, no sinus tenderness and No dry mucous membranes Mouth: oral mucosae normal and moist mucous membranes Teeth and gingiva: dentition normal Throat: tonsils normal and uvula midline Eyes General: appearance normal, both eyes and all related structures Eyelids: eyelids normal Conjunctivae: conjunctivae normal Sclera: sclerae normal Pupils: PERRL EOM: EOM intact bilaterally Neck Neck: normal visual inspection, trachea midline, No lymphadenopathy, No midline deformity and No JVD Lymphatic: No lymphedema Chest Chest: normal inspection of the chest Resp Effort & Inspection: normal respiratory effort, able to speak in complete sentences, no respiratory distress and no use of accessory muscles Cardio Pulses: normal peripheral pulses Back/Spine/Pelvis Back: No CVA tenderness Cervical Spine: cervical ROM normal and No pain with cervical ROM Thoracic/Lumbar Spine: thoracic and lumbar spine normal to inspection Skin General: no rashes or lesions noted, No jaundice and No petechiae Other: 1 cm laceration noted to patient right ring finger tip. Nail bed and nail itself are not involved. Laceration is superficial, and does not penetrate to the bone. Neuro General: alert, oriented x3, gait normal and no focal motor deficits Speech: speech normal Extrem General: full ROM and no pedal edema Other: Patient has a full range of motion at all of her right ring finger joints to both extension and flexion. Psych Appearance: well kempt Mental Status: mental status grossly normal Attitude: cooperative Thought Content: normal and suicidality Judgment: judgment good Procedures Laceration Repair Laceration 1: Site: upper extremity and hand Side (If applicable): right Size (cm): 1 Description: linear Depth: simple, single layer Local Anesthetic: lidocaine 1% Amount of anesthesia used (mL): 1 Pre-repair: wound explored, irrigated extensively and deep structures intact Skin layer closed with: nylon Size (cm): 5-0 Number of sutures: 3 Technique: simple, interrupted Course Course Course Narrative: The patient's wound was cleaned and repaired as noted above. The patient was advised regarding wound care, timeline for follow-up for suture removal, and the usual indications for return. Her tetanus was updated in the emergency department. Orders Ordered: Discontinued Medications Bacitracin (Bacitracin) 1 applic TOP NOW ONE Stop: 03/22/19 10:25 Last Admin: 03/22/19 10:38 Dose: 1 applic Documented by: GRACE Diphtheria/Tetanus/Acell Pertussis (Adacel) 0.5 ml IM .ONCE ONE Stop: 03/22/19 10:22 Last Admin: 03/22/19 10:29 Dose: 0.5 ml Documented by: GRACE Lidocaine/Sodium Bicarbonate (Buffered Lidocaine 5ml Syringe) 5 ml INJ NOW ONE Stop: 03/22/19 10:22 Last Admin: 03/22/19 10:29 Dose: Not Given Documented by: GRACE Lidocaine/Sodium Bicarbonate (Buffered Lidocaine 10 Ml Syr) 10 ml INJ NOW ONE Stop: 03/22/19 10:29 Last Admin: 03/22/19 10:31 Dose: 10 ml Documented by: GRACE Vital Signs Vital signs: Vital Signs - 8 hr 03/22/19 10:20 Temperature 97.2 F L Pulse Rate 64 Respiratory Rate 16 Blood Pressure [Right Arm] 106/77 Pulse Oximetry 96 MDM - Extremity Injury (Upper) Medical Records Attestation: I reviewed the patient's medical records. Discharge Plan Departure Patient Disposition: Home Clinical Impression: Laceration Discharge Date/Time: 03/22/19 10:49 Instructions: DI for Laceration Repair -- Finger Activity Restrictions/Additional Instructions: Please follow up in about 7 days to have your wound rechecked and sutures removed. You may see your primary care physician for this. Please keep the wound clean and dry in general, though you may let water and soap run over the wound. Do not immerse, rub, or scrub the wound until sutures are removed. If you develop redness and swelling spreading away from the wound and up your finger, or if you notice that the wound has split apart and is becoming mushy or draining pus, you should have the wound rechecked immediately. Your tetanus has been updated today. You do not need to have another tetanus shot for at least another 5 years. Prescriptions: No Action nitrofurantoin macrocrystal 100 mg capsule 100 mg PO BEDTIME Qty: 30 RF: 3 estradiol [Estrace] 0.01 % (0.1 mg/gram) cream 0.5 gram VAG 2XW RF: 0 potassium chloride 10 mEq tablet extended release 10 meq PO DAILY RF: 0 lorazepam 0.5 mg tablet 0.5 - 1 mg PO DAILY PRN (Reason: Anxiety) RF: 0 nitroglycerin 0.4 mg tablet, sublingual 0.4 mg sublingual PRN PRN (Reason: Chest Pain) RF: 0 furosemide 20 mg tablet 20 mg PO DAILY RF: 0 lisinopril 2.5 mg tablet 1.25 mg PO DAILY RF: 0 metoprolol tartrate 25 mg tablet 25 mg PO DAILY RF: 0 prasugrel 10 mg tablet 10 mg PO DAILY RF: 0 Referrals: Melly Bah MD [Primary Care Provider] -
[2019-03-22 10:48] VITALS: BP 92/43; PULSE 70; RESP 18; O2SAT 98
== END 2019-03-22 10:49 | disposition home or self-care (01) ==
PROVIDERS: Emergency Provider Emergency Medicine; Family Provider Internal Medicine; PCP Internal Medicine
DX: S61.214A Laceration without foreign body of right ring finger without damage to nail, initial encounter (principal); W19.XXXA Unspecified fall, initial encounter
CPT/HCPCS: 12001; 90471; 99282; 99283; 90715

== ENCOUNTER 2019-04-19 11:07 | Emergency (ER) | payer OTHER, SELFPAY ==
[2019-04-19 11:26] VITALS: BP 120/82; PULSE 66; RESP 20; TEMP 36.6; O2SAT 99; BMI 26.1
--- NOTE | 2019-04-19 11:32 | PC.NURSE ---
pt states that she has been having sob x 2 months. right side flank pain. self caths. was at cardiac rehab when she felt a right sided jab. pt is worried about her heart. denies chest pain. provider at bedside.
--- NOTE | 2019-04-19 11:34 | DI.CT.S_ITS ---
PROCEDURE: CT KIDNEY URETER BLADDER (KUB) INDICATIONS: Right flank pain. History of kidney stone TECHNIQUE: Noncontrast 5 mm thick sections acquired from the diaphragms to the symphysis. 5 mm thick coronal and sagittal reformats were then performed. For radiation dose reduction, the following was used: automated exposure control, adjustment of mA and/or kV according to patient size. COMPARISON: [facility], CT, CT KIDNEY URETER BLADDER (KUB), 01/19/2019, 1:34. FINDINGS: Image quality: Excellent. Lung bases: Lung bases are clear. Heart size is normal. Urinary system: As previously identified, there are punctate nonobstructing stones in the interpole of the right renal calculus. Presumed hyperdense cyst is noted in the superior aspect of the right kidney, unchanged. Prominent left renal cyst is stable. There is no visualized renal obstruction. Distal course of the ureters and UVJs are significantly obscured secondary to metallic streak artifact from bilateral hip arthroplasties. There is nondependent air within the bladder. Other solid organs: Liver is normal in size. Gallbladder has been removed. Pancreas is normal in contours. Spleen is normal in size. No adrenal nodules. Peritoneum and bowel: Unenhanced bowel loops demonstrate normal wall thickness and caliber. No free fluid or air. Scattered diverticula are present. Nodes and vessels: No retroperitoneal or mesenteric adenopathy by size criteria. Aorta and inferior vena cava are normal in caliber. Abdominal wall: No ventral hernias. Pelvis: No free pelvic fluid. No inguinal hernias or adenopathy. Bones: No suspicious bony lesions. No vertebral body compression fractures. Bilateral hip arthroplasties. IMPRESSION: 1. Stable appearance of nonobstructing renal calculi as above. Distal aspects of the ureters are not well visualized secondary to artifact. Stone within this region cannot be definitively excluded. 2. Non-dependent bladder air is present. This could be group sales representative cystitis. However, recommend correlation to iatrogenic intervention such as catheterization or in appropriate clinical scenario fistula. Dictated by: Jory Tamez M.D. on 04/19/2019 at 12:22 Approved by: Jroy Tamez M.D. on 04/19/2019 at 12:28
--- NOTE | 2019-04-19 11:34 | DI.RAD.S_ITS ---
PROCEDURE: XR CHEST 1V INDICATIONS: SOB TECHNIQUE: One view of the chest was acquired. COMPARISON: [facility], CR, XR CHEST 1V, 11/08/2018, 11:17. FINDINGS: Surgical changes and devices: None. Lungs and pleura: Mild increased vascularity. No pleural effusions or pneumothorax. Mediastinum: Mediastinal contours appear normal. Heart size is mildly enlarged. Bones and chest wall: No suspicious bony lesions. Overlying soft tissues appear unremarkable. IMPRESSION: Mild increased vascularity suggestive of edema. Dictated by: Jory Tamez M.D. on 04/19/2019 at 12:17 Approved by: Jory Tamez M.D. on 04/19/2019 at 12:17
--- NOTE | 2019-04-19 11:39 | ED_ITS ---
HPI - Female Genitourinary <Tia LooneyHAYES - Last Filed: 04/19/19 20:13> General Chief complaint: Urogenital-Female Stated complaint: fighting kidney stones? urinary related Time Seen by Provider: 04/19/19 11:10 Source: patient Mode of arrival: Family Vehicle Limitations: no limitations History of Present Illness HPI Narrative: 73-year-old female with a history of renal calculi, previous AL in November it is currently in cardiac rehab, presents emergency department today complaining of intermittent sharp right flank pain that is a 7/10 and radiates to the right side of the groin. She states this has been going on for the past 2-3 months. She gets short of breath when the pain gets severe. Patient believes this is her kidney stone. 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 Patient states this feels like a kidney stone and she is worried about her kidney. She has a history of bladder retention and caths herself once a day. Patient denies any chest pain, headaches, facial numbness, vision changes, nausea, vomiting, diarrhea, abdominal pain, fevers, or other concerns. Related Data Home Medications Medication Instructions Recorded Confirmed furosemide 20 mg PO DAILY 01/11/19 03/22/19 lisinopril 1.25 mg PO DAILY 01/11/19 03/22/19 lorazepam 0.5 - 1 mg PO DAILY PRN 01/11/19 03/22/19 metoprolol tartrate 25 mg PO DAILY 01/11/19 03/22/19 nitroglycerin 0.4 mg SUBLINGUAL PRN PRN 01/11/19 03/22/19 potassium chloride 10 meq PO DAILY 01/11/19 03/22/19 prasugrel 10 mg PO DAILY 01/11/19 03/22/19 estradiol [Estrace] 0.5 gram VAG 2XW 03/22/19 03/22/19 Previous Rx's Medication Instructions Recorded nitrofurantoin macrocrystal 100 mg 100 mg PO BEDTIME #30 cap 01/24/19 capsule Allergies Allergy/AdvReac Type Severity Reaction Status Date / Time adenosine [ADENOSINE] Allergy Unknown Verified 04/19/19 11:34 Opioids - Morphine Analogues Allergy Unknown Verified 04/19/19 11:34 [OPIOIDS - MORPHINE ANALOGUES] Oubhbhw-Emy-Ryk Reductase Allergy Unknown Verified 04/19/19 11:34 Inhibitor [[id number] REDUCTASE INHIBITOR] Sulfa (Sulfonamide Allergy Unknown Verified 04/19/19 11:34 Antibiotics) [SULFA (SULFONAMIDE ANTIBIOTICS)] Review of Systems <HAYES Estevez - Last Filed: 04/19/19 20:13> Review of Systems Narrative: REVIEW OF SYSTEMS: GENERAL: Denies fever or chills. HENT: No head trauma, hearing loss or sore throat. EYES: No loss of vision, double vision, eye pain, or irritation. CARDIOVASCULAR: No chest pain or syncope. RESPIRATORY: No shortness of breath or cough. GASTROINTESTINAL: Patient reports right-sided abdominal pain, see HPI. GENITOURINARY: Patient reports right-sided flank pain, see HPI. MUSCULOSKELETAL: No pain, weakness, or deformities. INTEGUMENTARY: No rash, lesions, or pruritus. NEURO: No numbness, tingling, memory loss, or confusion. PSYCH: No behavior or mood changes. Patient History <HAYES Estevez - Last Filed: 04/19/19 20:13> Medical History Acute coronary syndrome (Acute) Chest pain (Inactive) Coronary artery disease (Acute) Renal cyst, left (Acute) Vaginal vault prolapse (Acute) Surgical History H/O coronary angioplasty (Acute) alcohol intake frequency: 0-2 drinks per day Substance Use Type: does not use Exam <HAYES Estevez - Last Filed: 04/19/19 20:13> Initial Vital Signs Initial Vital Signs: Vital Signs Temperature 97.8 F 04/19/19 11:26 Pulse Rate 66 04/19/19 11:26 Respiratory Rate 20 04/19/19 11:26 Blood Pressure 120/82 04/19/19 11:26 Pulse Oximetry 99 04/19/19 11:26 PHYSICAL EXAMINATION: GENERAL: Well groomed, alert, and cooperative. Answers questions promptly and appropriately. Vital signs noted. HENT: Normocephalic, atraumatic. Hearing intact. Oral mucosa is pink and moist. EYES: Conjunctiva pink, sclera white, no periorbital swelling. CARDIOVASCULAR: S1 and S2 sounds normal. Regular rate and rhythm, no murmurs, clicks, or bruits. No pedal edema. RESPIRATORY: Normal respiratory rate, trachea midline, airway patent. No stridor, nasal flaring or accessory muscle use. Lungs are clear in all hicks w ithout wheeze, rhonchi, or crackles. GASTROINTESTINAL: Bowel sounds normoactive. Abdomen is soft, nontender. No organomegaly, no palpable masses. GENITALURINARY: Left CVA tenderness. MUSCULOSKELETAL: Normal gait and coordination. Equal tone and mass bilaterally. EXTREMITIES: CMS intact, no pedal edema. SKIN: Warm, dry, soft, appropriate color for ethnicity. No lesions, rashes, or wounds. NEURO: Alert and Oriented X 3. Good coordination. No ataxia, or sensory deficits, or cognitive issues. PSYCH: Appropriate affect and mood. <Quintin Braden DO - Last Filed: 04/19/19 20:20> Initial Vital Signs Initial Vital Signs: Vital Signs Temperature 97.8 F 04/19/19 11:26 Pulse Rate 66 04/19/19 11:26 Respiratory Rate 20 04/19/19 11:26 Blood Pressure 120/82 04/19/19 11:26 Pulse Oximetry 99 04/19/19 11:26 Course <HAYES Estevez - Last Filed: 04/19/19 20:13> Course Course Narrative: Patient was given 250ml of NS IV during her stay in the emergency department. Patient stated that she is being followed with urology (Dr. Burks) for renal stones and bladder prolapse as well as by Dr. Anne for bladder prolapse. Patient states she believes her urologist would like her on Ativan for anxiety, she is currently working to get a psychology appointment at this time for counselor. Patient states she gets occasional bouts of anxiety. Orders Ordered: ED Orders 04/19/19 11:27 EKG-12 Lead Stat 04/19/19 11:34 CT kidney ureter bladder (KUB) Stat XR chest 1V Stat 04/19/19 11:40 B Type Natriuretic Peptide Stat Complete Blood Count AUTO DIFF Stat Comprehensive Metabolic Panel Stat Lipase Stat Troponin & CK Cardiac Panel Stat 04/19/19 11:50 Urinalysis and Microscopic Stat Discontinued Medications Sodium Chloride (Normal Saline 0.9%) 1,000 mls @ 150 mls/hr IV CONT DANIELA Last Infusion: 04/19/19 14:03 Dose: 0 mls/hr Documented by: Admin: 04/19/19 13:02 Dose: 150 mls/hr Documented by: ROBBINARRINGTO Lorazepam (Ativan) 0.5 mg IV NOW ONE Stop: 04/19/19 14:05 Vital Signs Vital signs: Vital Signs - 8 hr 04/19/19 12:34 04/19/19 13:07 Pulse Rate 55 L 62 Respiratory Rate 15 13 Blood Pressure [Left Arm] 107/58 L 112/66 Pulse Oximetry 94 100 <Quintin Braden DO - Last Filed: 04/19/19 20:20> Orders Ordered: ED Orders 04/19/19 11:27 EKG-12 Lead Stat 04/19/19 11:34 CT kidney ureter bladder (KUB) Stat XR chest 1V Stat 04/19/19 11:40 B Type Natriuretic Peptide Stat Complete Blood Count AUTO DIFF Stat Comprehensive Metabolic Panel Stat Lipase Stat Troponin & CK Cardiac Panel Stat 04/19/19 11:50 Urinalysis and Microscopic Stat Discontinued Medications Sodium Chloride (Normal Saline 0.9%) 1,000 mls @ 150 mls/hr IV CONT DANIELA Last Infusion: 04/19/19 14:03 Dose: 0 mls/hr Documented by: Admin: 04/19/19 13:02 Dose: 150 mls/hr Documented by: ROBBINARRINGTO Lorazepam (Ativan) 0.5 mg IV NOW ONE Stop: 04/19/19 14:05 Vital Signs Vital signs: Vital Signs - 8 hr 04/19/19 12:34 04/19/19 13:07 Pulse Rate 55 L 62 Respiratory Rate 15 13 Blood Pressure [Left Arm] 107/58 L 112/66 Pulse Oximetry 94 100 MDM - Female Genitourinary <HAYES Estevez - Last Filed: 04/19/19 20:13> Medical Records Attestation: I reviewed the patient's medical records. Lab Data Attestation: I reviewed the patient's lab results. Result diagrams: 04/19/19 11:40 04/19/19 11:40 Labs: Lab Results 11/13/19 11/13/19 11/13/19 Range/Units 11:40 11:40 11:40 WBC 7.9 (4.5-11.0) X10^3/uL RBC 4.53 (4.0-5.2) X10^6/uL Hgb 12.7 (12.0-16.0) g/dL Hct 37.2 (36-46) % MCV 82.0 (80-100) fL MCH 28.1 (26-34) PG MCHC 34.3 (30-36) % RDW 15.9 H (11.6-14.8) % Plt Count 194 (150-400) X10^3/uL Neut % (Auto) 63.8 (50-75) % Lymph % (Auto) 25.7 (25-40) % [place] % (Auto) 8.4 (3-14) % Eos % (Auto) 0.9 L (2-4) % Baso % (Auto) 1.2 (0-2) % Neut # (Auto) 5000 (9194-1502) /uL Lymph # (Auto) 2000 (6212-4955) /uL [place] # (Auto) 700 (0-900) /uL Eos # (Auto) 100 (0-450) /uL Baso # (Auto) 100 (0-100) /uL Sodium 140 (137-145) mmol/L Potassium 4.5 (3.4-5.1) mmol/L Chloride 107 (98-107) mmol/L Carbon Dioxide 24 (22-32) mmol/L BUN 17 (7-17) mg/dL Creatinine 0.80 (0.52-1.04) mg/dL Estimated GFR > 60.0 (>60) mL/min BUN/Creatinine Ratio 21.3 (6-22) Glucose 97 (80-110) mg/dL Calcium 9.5 (8.4-10.2) mg/dL Total Bilirubin 0.7 (0.2-1.3) mg/dL AST 25 (14-36) IU/L ALT 12 (<35) IU/L Alkaline Phosphatase 62 (38-126) U/L Total Creatine Kinase 75 (30-135) U/L CK-MB (CK-2) TNP CK-MB (CK-2) Rel Index TNP Troponin I < 0.012 (0.01-0.034) ng/mL B-Natriuretic Peptide 170 H (<100) Total Protein 7.3 (6.3-8.2) g/dL Albumin 4.5 (3.5-5.0) g/dL Globulin 2.8 (1.7-4.1) g/dL Albumin/Globulin Ratio 1.6 (1.0-2.8) Lipase 62 (23-300) U/L Urine Color Urine Appearance Urine pH (4.5-8.0) Ur Specific [place] (1.000-1.035) Urine Protein (Negative) Urine Glucose (UA) (Negative) g/dL Urine Ketones (NEGATIVE) Urine Occult Blood (Negative) Urine Nitrate (Negative) Urine Bilirubin (NEGATIVE) Urine Urobilinogen (0.2) E.U./dL Ur Leukocyte Esterase (NEGATIVE) Urine RBC (0-5/HPF) Urine WBC (0-5/HPF) Urine Bacteria (None) Ur Culture Indicated? Micro UA Comment 04/19/19 Range/Units 11:50 WBC (4.5-11.0) X10^3/uL RBC (4.0-5.2) X10^6/uL Hgb (12.0-16.0) g/dL Hct (36-46) % MCV (80-100) fL MCH (26-34) PG MCHC (30-36) % RDW (11.6-14.8) % Plt Count (150-400) X10^3/uL Neut % (Auto) (50-75) % Lymph % (Auto) (25-40) % [place] % (Auto) (3-14) % Eos % (Auto) (2-4) % Baso % (Auto) (0-2) % Neut # (Auto) (6097-2471) /uL Lymph # (Auto) (6406-1906) /uL [place] # (Auto) (0-900) /uL Eos # (Auto) (0-450) /uL Baso # (Auto) (0-100) /uL Sodium (137-145) mmol/L Potassium (3.4-5.1) mmol/L Chloride (98-107) mmol/L Carbon Dioxide (22-32) mmol/L BUN (7-17) mg/dL Creatinine (0.52-1.04) mg/dL Estimated GFR (>60) mL/min BUN/Creatinine Ratio (6-22) Glucose (80-110) mg/dL Calcium (8.4-10.2) mg/dL Total Bilirubin (0.2-1.3) mg/dL AST (14-36) IU/L ALT (<35) IU/L Alkaline Phosphatase (38-126) U/L Total Creatine Kinase (30-135) U/L CK-MB (CK-2) CK-MB (CK-2) Rel Index Troponin I (0.01-0.034) ng/mL B-Natriuretic Peptide (<100) Total Protein (6.3-8.2) g/dL Albumin (3.5-5.0) g/dL Globulin (1.7-4.1) g/dL Albumin/Globulin Ratio (1.0-2.8) Lipase (23-300) U/L Urine Color Yellow Urine Appearance Clear Urine pH 5.0 (4.5-8.0) Ur Specific [place] 1.010 (1.000-1.035) Urine Protein Negative (Negative) Urine Glucose (UA) Negative (Negative) g/dL Urine Ketones Negative (NEGATIVE) Urine Occult Blood Negative (Negative) Urine Nitrate Negative (Negative) Urine Bilirubin Negative (NEGATIVE) Urine Urobilinogen 0.2 (0.2) E.U./dL Ur Leukocyte Esterase Negative (NEGATIVE) Urine RBC None seen (0-5/HPF) Urine WBC None seen (0-5/HPF) Urine Bacteria None seen (None) Ur Culture Indicated? Cult not indicated Micro UA Comment Microscopic normal Imaging Data KUB: Radiologist's impression: [place] [address] CT Scan Report Signed Patient: Soren Landrum [facility]#: [id number] : 5Acct:[id number] Age/Sex: 73 / FDate of Service: 04/19/19 Loc: ED Accession Number: [id number] Procedure: CT kidney ureter bladder (KUB) Ordering Provider: Tia Looney PROCEDURE: CT KIDNEY URETER BLADDER (KUB) INDICATIONS: Right flank pain. History of kidney stone TECHNIQUE: Noncontrast 5 mm thick sections acquired from the diaphragms to the symphysis. 5 mm thick coronal and sagittal reformats were then performed. For radiation dose reduction, the following was used: automated exposure control, adjustment of mA and/or kV according to patient size. COMPARISON: [facility], CT, CT KIDNEY URETER BLADDER (KUB), 01/19/2019, 1:34. FINDINGS: Image quality: Excellent. Lung bases: Lung bases are clear. Heart size is normal. Urinary system: As previously identified, there are punctate nonobstructing stones in the interpole of the right renal calculus. Presumed hyperdense cyst is noted in the superior aspect of the right kidney, unchanged. Prominent left renal cyst is stable. There is no visualized renal obstruction. Distal course of the ureters and UVJs are significantly obscured secondary to metallic streak artifact from bilateral hip arthroplasties. There is nondependent air within the bladder. Other solid organs: Liver is normal in size. Gallbladder has been removed. Pancreas is normal in contours. Spleen is normal in size. No adrenal nodules. Peritoneum and bowel: Unenhanced bowel loops demonstrate normal wall thickness and caliber. No free fluid or air. Scattered diverticula are present. Nodes and vessels: No retroperitoneal or mesenteric adenopathy by size criteria. Aorta and inferior vena cava are normal in caliber. Abdominal wall: No ventral hernias. Pelvis: No free pelvic fluid. No inguinal hernias or adenopathy. Bones: No suspicious bony lesions. No vertebral body compression fractures. Bilateral hip arthroplasties. IMPRESSION: 1. Stable appearance of nonobstructing renal calculi as above. Distal aspects of the ureters are not well visualized secondary to artifact. Stone within this region cannot be definitively excluded. 2. Non-dependent bladder air is present. This could be patient representative cystitis. However, recommend correlation to iatrogenic intervention such as catheterization or in appropriate clinical scenario fistula. Dictated by: Jory Tamez M.D. on 04/19/2019 at 12:22 Approved by: Jory Tamez M.D. on 04/19/2019 at 12:28 Chest x-ray: Radiologist's impression: [address] [address] XRay Report Signed Patient: Soren Landrum [facility]#: [id number] : 5Acct:[id number] Age/Sex: 73 / FDate of Service: 04/19/19 Loc: ED Accession Number: [id number] Procedure: XR chest 1V Ordering Provider: Tia Looney PROCEDURE: XR CHEST 1V INDICATIONS: SOB TECHNIQUE: One view of the chest was acquired. COMPARISON: [facility], CR, XR CHEST 1V, 11/08/2018, 11:17. FINDINGS: Surgical changes and devices: None. Lungs and pleura: Mild increased vascularity. No pleural effusions or pneumothorax. Mediastinum: Mediastinal contours appear normal. Heart size is mildly enlarged. Bones and chest wall: No suspicious bony lesions. Overlying soft tissues appear unremarkable. IMPRESSION: Mild increased vascularity suggestive of edema. Dictated by: Jory Tamez M.D. on 04/19/2019 at 12:17 Approved by: Jory Tamez M.D. on 04/19/2019 at 12:17 ECG Data Interpretation: Sinus rhythm, rate 58, PA interval 164, QTC 431. No ST elevation or ST depression, no T-wave inversion. EKG also viewed by Dr. Braden as per protocol. MDM Narrative Medical decision making narrative: This is a 73-year-old female who is being followed by urologist, she has had a longstanding history of right flank pain and renal calculi. CT does not show any obstructing stones, renal function is within normal limits, and patient's lab work is non-remarkable. Differential includes chronic abdominal pain, microscopic renal calculi (less likely due to lack of blood in urine, negative CT), appendicitis (less likely due to normal white blood cell count, pain ongoing for 2-3 months, history of urorenal problems). Patient is hemodynamically stable throughout the emergency department today, she had no change in pain. She was encouraged to follow up with her urologist within the week. Differential for patient's shortness of breath includes PE (less likely as patient is currently on blood thinners, she is not tachycardic or hypoxic, SOB resolves when pain resolves), cardiac etiology (less likely due to lack of systemic symptoms such as chest pain, unremarkable blood work, EKG without concerning changes) , and infectious pulmonary etiology (less likely due to negative chest x-ray and lack of systemic symptoms such as fever). Follow-up instructions discussed and return precautions given <Quintin Braden, - Last Filed: 04/19/19 20:20> Lab Data Labs: Lab Results 04/19/19 04/19/19 04/19/19 Range/Units 11:40 11:40 11:40 WBC 7.9 (4.5-11.0) X10^3/uL RBC 4.53 (4.0-5.2) X10^6/uL Hgb 12.7 (12.0-16.0) g/dL Hct 37.2 (36-46) % MCV 82.0 (80-100) fL MCH 28.1 (26-34) PG MCHC 34.3 (30-36) % RDW 15.9 H (11.6-14.8) % Plt Count 194 (150-400) X10^3/uL Neut % (Auto) 63.8 (50-75) % Lymph % (Auto) 25.7 (25-40) % [place] % (Auto) 8.4 (3-14) % Eos % (Auto) 0.9 L (2-4) % Baso % (Auto) 1.2 (0-2) % Neut # (Auto) 5000 (9983-1810) /uL Lymph # (Auto) 2000 (7489-4789) /uL [place] # (Auto) 700 (0-900) /uL Eos # (Auto) 100 (0-450) /uL Baso # (Auto) 100 (0-100) /uL Sodium 140 (137-145) mmol/L Potassium 4.5 (3.4-5.1) mmol/L Chloride 107 (98-107) mmol/L Carbon Dioxide 24 (22-32) mmol/L BUN 17 (7-17) mg/dL Creatinine 0.80 (0.52-1.04) mg/dL Estimated GFR > 60.0 (>60) mL/min BUN/Creatinine Ratio 21.3 (6-22) Glucose 97 (80-110) mg/dL Calcium 9.5 (8.4-10.2) mg/dL Total Bilirubin 0.7 (0.2-1.3) mg/dL AST 25 (14-36) IU/L ALT 12 (<35) IU/L Alkaline Phosphatase 62 (38-126) U/L Total Creatine Kinase 75 (30-135) U/L CK-MB (CK-2) TNP CK-MB (CK-2) Rel Index TNP Troponin I < 0.012 (0.01-0.034) ng/mL B-Natriuretic Peptide 170 H (<100) Total Protein 7.3 (6.3-8.2) g/dL Albumin 4.5 (3.5-5.0) g/dL Globulin 2.8 (1.7-4.1) g/dL Albumin/Globulin Ratio 1.6 (1.0-2.8) Lipase 62 (23-300) U/L Urine Color Urine Appearance Urine pH (4.5-8.0) Ur Specific [place] (1.000-1.035) Urine Protein (Negative) Urine Glucose (UA) (Negative) g/dL Urine Ketones (NEGATIVE) Urine Occult Blood (Negative) Urine Nitrate (Negative) Urine Bilirubin (NEGATIVE) Urine Urobilinogen (0.2) E.U./dL Ur Leukocyte Esterase (NEGATIVE) Urine RBC (0-5/HPF) Urine WBC (0-5/HPF) Urine Bacteria (None) Ur Culture Indicated? Micro UA Comment 04/19/19 Range/Units 11:50 WBC (4.5-11.0) X10^3/uL RBC (4.0-5.2) X10^6/uL Hgb (12.0-16.0) g/dL Hct (36-46) % MCV (80-100) fL MCH (26-34) PG MCHC (30-36) % RDW (11.6-14.8) % Plt Count (150-400) X10^3/uL Neut % (Auto) (50-75) % Lymph % (Auto) (25-40) % [place] % (Auto) (3-14) % Eos % (Auto) (2-4) % Baso % (Auto) (0-2) % Neut # (Auto) (3234-4959) /uL Lymph # (Auto) (8650-1817) /uL [place] # (Auto) (0-900) /uL Eos # (Auto) (0-450) /uL Baso # (Auto) (0-100) /uL Sodium (137-145) mmol/L Potassium (3.4-5.1) mmol/L Chloride (98-107) mmol/L Carbon Dioxide (22-32) mmol/L BUN (7-17) mg/dL Creatinine (0.52-1.04) mg/dL Estimated GFR (>60) mL/min BUN/Creatinine Ratio (6-22) Glucose (80-110) mg/dL Calcium (8.4-10.2) mg/dL Total Bilirubin (0.2-1.3) mg/dL AST (14-36) IU/L ALT (<35) IU/L Alkaline Phosphatase (38-126) U/L Total Creatine Kinase (30-135) U/L CK-MB (CK-2) CK-MB (CK-2) Rel Index Troponin I (0.01-0.034) ng/mL B-Natriuretic Peptide (<100) Total Protein (6.3-8.2) g/dL Albumin (3.5-5.0) g/dL Globulin (1.7-4.1) g/dL Albumin/Globulin Ratio (1.0-2.8) Lipase (23-300) U/L Urine Color Yellow Urine Appearance Clear Urine pH 5.0 (4.5-8.0) Ur Specific [place] 1.010 (1.000-1.035) Urine Protein Negative (Negative) Urine Glucose (UA) Negative (Negative) g/dL Urine Ketones Negative (NEGATIVE) Urine Occult Blood Negative (Negative) Urine Nitrate Negative (Negative) Urine Bilirubin Negative (NEGATIVE) Urine Urobilinogen 0.2 (0.2) E.U./dL Ur Leukocyte Esterase Negative (NEGATIVE) Urine RBC None seen (0-5/HPF) Urine WBC None seen (0-5/HPF) Urine Bacteria None seen (None) Ur Culture Indicated? Cult not indicated Micro UA Comment Microscopic normal Discharge Plan Departure Patient Disposition: Home Clinical Impression: Acute flank pain Discharge Date/Time: 04/19/19 13:45 Instructions: DI for Kidney Stones Activity Restrictions/Additional Instructions: Thank you for entrusting me with your care today. As discussed, your chest x-ray is negative for any acute findings, your CT exam showed a stone in your right kidney. You GFR was > 60 indicated good renal function. I recommend following up with your urologist in the next week for re-evaluation. Please continue with your cardiac rehab, follow up with your cheese specialist as previously recommended. Return to the emergency department if you develop new or worsening symptoms such as chest pain, facial droop, limb numbness, uncontrollable vomiting, high fevers, or etc. Prescriptions: No Action nitrofurantoin macrocrystal 100 mg capsule 100 mg PO BEDTIME Qty: 30 RF: 3 estradiol [Estrace] 0.01 % (0.1 mg/gram) cream 0.5 gram VAG 2XW RF: 0 potassium chloride 10 mEq tablet extended release 10 meq PO DAILY RF: 0 lorazepam 0.5 mg tablet 0.5 - 1 mg PO DAILY PRN (Reason: Anxiety) RF: 0 nitroglycerin 0.4 mg tablet, sublingual 0.4 mg sublingual PRN PRN (Reason: Chest Pain) RF: 0 furosemide 20 mg tablet 20 mg PO DAILY RF: 0 lisinopril 2.5 mg tablet 1.25 mg PO DAILY RF: 0 metoprolol tartrate 25 mg tablet 25 mg PO DAILY RF: 0 prasugrel 10 mg tablet 10 mg PO DAILY RF: 0 Referrals: Melly Bah MD [Primary Care Provider] - <Quintin Braden DO - Last Filed: 04/19/19 20:20> Sign Out Provider Sign Out Attestation: Dr Braden Co-Sign Statement: I was available for consultation during this patient's emergency department visit. This chart is signed by myself for administrative purposes only. I did not have direct contact with this patient during this visit. They were seen independently by the APC.
[2019-04-19 11:45] LABS: Add Manual Diff / Slide Review NO; Basophils Absolute Auto 100 /uL (0-100); Basophils Percent Auto 1.2 % (0-2); Eosinophils Absolute Auto 100 /uL (0-450); Eosinophils Percent Auto 0.9 % (2-4); Hematocrit 37.2 % (36-46); Hemoglobin 12.7 g/dL (12.0-16.0); Lymphocytes Absolute Auto 2000 /uL (1100-4500); Lymphocytes Percent Auto 25.7 % (25-40); Mean Corpuscular HGB Conc 34.3 % (30-36); Mean Corpuscular Hemoglobin 28.1 PG (26-34); Monocytes Absolute Auto 700 /uL (0-900); Monocytes Percent Auto 8.4 % (3-14); Neutrophils Absolute Auto 5000 /uL (1500-7000); Neutrophils Percent Auto 63.8 % (50-75); Platelet Count 194 X10^3/uL (150-400); Red Blood Cell Count 4.53 X10^6/uL (4.0-5.2); Red Cell Distribution Width 15.9 % (11.6-14.8); White Blood Cell Count 7.9 X10^3/uL (4.5-11.0)
[2019-04-19 11:59] LABS: Alanine Aminotransferase 12 IU/L (<35); Albumin 4.5 g/dL (3.5-5.0); Albumin Globulin Ratio 1.6 (1.0-2.8); Alkaline Phosphatase 62 U/L (38-126); Aspartate Aminotransferase 25 IU/L (14-36); BUN Creatinine Ratio 21.3 (6-22); Bilirubin Total 0.7 mg/dL (0.2-1.3); Blood Urea Nitrogen 17 mg/dL (7-17); Calcium 9.5 mg/dL (8.4-10.2); Carbon Dioxide 24 mmol/L (22-32); Chloride 107 mmol/L (98-107); Creatine Kinase 75 U/L (30-135); Estimated Glomerular Filt Rate > 60.0 mL/min (>60); Globulin 2.8 g/dL (1.7-4.1); Glucose 97 mg/dL (80-110); HEMOLYSIS 41 (0-50); Lipase 62 U/L (23-300); Potassium 4.5 mmol/L (3.4-5.1); Sodium 140 mmol/L (137-145); Total Protein 7.3 g/dL (6.3-8.2)
--- NOTE | 2019-04-19 12:01 | PC.NURSE ---
Performed in and out catheter; pt noted to have prolapsed vaginal vault. Only obtained 20 cc clear urine.
[2019-04-19 12:07] LABS: B Type Natriuretic Peptide 170 (<100)
[2019-04-19 12:12] LABS: Troponin I < 0.012 ng/mL (0.01-0.034)
[2019-04-19 12:16] LABS: Bacteria Urine None Seen; RBC Urine None Seen (0-5/HPF); WBC Urine None Seen (0-5/HPF)
[2019-04-19 12:18] LABS: Appearance Urine UA CLEAR; Bilirubin Urine UA NEGATIVE (NEGATIVE); Color Urine UA YELLOW; Glucose Urine UA NEGATIVE (Negative); Ketones Urine UA NEGATIVE (NEGATIVE); Leukocyte Esterase Urine UA NEGATIVE (NEGATIVE); Nitrite Urine UA NEGATIVE (Negative); Occult Blood Urine UA NEGATIVE (Negative); Protein Urine UA NEGATIVE (Negative); Urobilinogen Urine UA 0.2 E.U./dL (0.2)
[2019-04-19 12:21] LABS: Culture Indicated Urine Cult Not Indicated; Urine Comments Microscopic Normal
[2019-04-19 12:34] VITALS: BP 107/58; PULSE 55; RESP 15; O2SAT 94
[2019-04-19] MEDS: SODIUM CHLORIDE 0.9% 1,000 ML 150 ML IV (13:02)
[2019-04-19 13:07] VITALS: BP 112/66; PULSE 62; RESP 13; O2SAT 100
== END 2019-04-19 13:45 | disposition home or self-care (01) ==
PROVIDERS: Emergency Provider Nurse Practitioner; PCP Internal Medicine
DX: R10.9 Unspecified abdominal pain (principal)
CPT/HCPCS: 36415; 71045; 74176; 80053; 81001; 82550; 83690; 83880; 84484; 85025; 93005; 96360; 99283; 99285

== ENCOUNTER 2019-05-29 11:30 | Outpatient (RCR) | payer OTHER, SELFPAY | END 2019-05-29 11:35 | disposition home or self-care (01) | LOC: CAR 11:30 | PROVIDERS: PCP Internal Medicine; Visit Provider Internal Medicine Cardiovascular Disease | DX: Z95.5 Presence of coronary angioplasty implant and graft (principal) | CPT/HCPCS: 93798 ==

== ENCOUNTER → 2019-05-30 10:21 | Outpatient (CLI) | payer OTHER, SELFPAY ==
--- NOTE | 2019-05-30 10:22 | DI.US.S_ITS ---
PROCEDURE: US PELVIC COMPLETE INDICATIONS: HISTORY OF OVARIAN CYST TECHNIQUE: Real-time scanning was performed of the pelvic organs, with image documentation. Additional endovaginal scanning was necessary due to incomplete visualization of the adnexal and endometrial structures by transabdominal scanning. COMPARISON: [facility], CT, CT KIDNEY URETER BLADDER (KUB), 01/19/2019, 1:34. [facility], CT, CT KIDNEY URETER BLADDER (KUB), 04/19/2019, 11:59. FINDINGS: Transabdominal scanning: Limited scanning through the kidneys shows no hydronephrosis. There is a 3.1 cm diameter cyst in the superior pole of the left kidney. No pathologic free abdominal or pelvic fluid. Endovaginal scanning: Uterus: Uterus is surgically absent. Ovaries: Right ovary measures 2.7 x 11.2 x 1.5 cm. Left ovary measures 2.8 x 1.1 x 1 x 1 cm. There is a 1.4 x 1.1 x 1.7 cm irregular cystic mass in the left adnexa. IMPRESSION: 1. A 1.4 x 1.1 x 1.7 cm irregular cystic mass in the left adnexa. A followup ultrasound may be considered. 2. Hysterectomy. 3. A 3.1 cm simple left renal cyst. Dictated by: Jenny Chicas M.D. on 05/30/2019 at 11:55 Approved by: Jenny Chicas M.D. on 05/30/2019 at 12:06
--- NOTE | 2019-08-07 13:31 | ONC.MSW ---
Description: New Referral Navigation: Dx: Porphyria Activity: Received referral from Dr. Harris, reviewed the referral for acuity, medical status and immediate needs. Forwarded to scheduling for next available initial consult appt. time.
== END ==
PROVIDERS: PCP Family Medicine; Visit Provider Obstetrics & Gynecology
DX: N28.1 Cyst of kidney, acquired (principal); R19.00 Intra-abdominal and pelvic swelling, mass and lump, unspecified site; Z87.42 Personal history of other diseases of the female genital tract; Z90.710 Acquired absence of both cervix and uterus
CPT/HCPCS: 76830; 76856

== ENCOUNTER → 2019-08-15 10:41 | Outpatient (CLI) | payer OTHER, SELFPAY ==
[2019-08-15 11:43] LABS: Alanine Aminotransferase 12 IU/L (<35); Albumin 4.4 g/dL (3.5-5.0); Albumin Globulin Ratio 1.5 (1.0-2.8); Alkaline Phosphatase 62 U/L (38-126); Aspartate Aminotransferase 25 IU/L (14-36); BUN Creatinine Ratio 16.7 (6-22); Bilirubin Total 0.9 mg/dL (0.2-1.3); Blood Urea Nitrogen 13 mg/dL (7-17); Calcium 9.7 mg/dL (8.4-10.2); Carbon Dioxide 26 mmol/L (22-32); Chloride 103 mmol/L (98-107); Cholesterol 300 mg/dL (140-199); Estimated Glomerular Filt Rate > 60.0 mL/min (>60); Globulin 2.9 g/dL (1.7-4.1); Glucose 139 mg/dL (80-110); HDL Cholesterol 46 mg/dL (40-60); HEMOLYSIS < 15 (0-50); LDL Cholesterol Calculated 213 mg/dL (<100); Potassium 4.3 mmol/L (3.4-5.1); Sodium 136 mmol/L (137-145); Total Protein 7.3 g/dL (6.3-8.2); Triglycerides 205 mg/dL (35-150)
[2019-08-15 11:49] LABS: Hemoglobin A1C% w Est Avg Glu 5.8 % (4.0-6.0)
== END ==
PROVIDERS: PCP Family Medicine; Referring Provider Family Medicine; Visit Provider Family Medicine
DX: Z13.228 Encounter for screening for other metabolic disorders (principal); R73.09 Other abnormal glucose; E78.00 Pure hypercholesterolemia, unspecified
CPT/HCPCS: 36415; 80053; 80061; 83036

== ENCOUNTER → 2020-03-05 12:11 | Outpatient (CLI) | payer OTHER, SELFPAY ==
--- NOTE | 2020-03-05 | DI.MG.S_ITS ---
BILATERAL DIGITAL SCREENING MAMMOGRAM 3D/2D WITH CAD: 03/05/2020 CLINICAL: Routine screening. Family history of breast cancer. Comparison is made to exams dated: 10/14/2018 mammogram, 10/13/2017 mammogram, and 09/24/2016 mammogram - [facility]. There are scattered fibroglandular elements in both breasts. Current study was also evaluated with a Computer Aided Detection (CAD) system. There is a biopsy clip in the left breast. No significant masses, calcifications, or other findings are seen in either breast. There has been no significant interval change. IMPRESSION: NEGATIVE There is no mammographic evidence of malignancy. A 1 year screening mammogram is recommended. This exam was interpreted at Station ID: [id number]. NOTE: For mammograms, a report in lay terms will be sent to the patient. Approximately 15% of breast malignancies will not be visualized mammographically. In the management of a palpable breast mass, a negative mammogram must not discourage biopsy of a clinically suspicious lesion. Electronically Signed By: Bhavesh obando/deepak:03/05/2020 13:08:35 letter sent: Normal Exam ACR BI-RADS Category 1: Negative [id number]
== END ==
PROVIDERS: PCP Internal Medicine; Referring Provider Internal Medicine; Visit Provider Internal Medicine
DX: Z12.31 Encounter for screening mammogram for malignant neoplasm of breast (principal); Z80.3 Family history of malignant neoplasm of breast
CPT/HCPCS: 77063; 77067

== ENCOUNTER → 2020-03-23 10:43 | Outpatient (CLI) | payer OTHER, SELFPAY ==
[2020-03-23 12:21] LABS: Alanine Aminotransferase 12 IU/L (<35); Albumin Globulin Ratio 1.5 (1.0-2.8); Alkaline Phosphatase 53 U/L (38-126); Aspartate Aminotransferase 23 IU/L (14-36); BUN Creatinine Ratio 27.5 (6-22); Bilirubin Total 0.5 mg/dL (0.2-1.3); Blood Urea Nitrogen 22 mg/dL (7-17); Calcium 9.3 mg/dL (8.4-10.2); Carbon Dioxide 27 mmol/L (22-32); Chloride 107 mmol/L (98-107); Cholesterol 265 mg/dL (140-199); Estimated Glomerular Filt Rate > 60.0 mL/min (>60); Globulin 2.7 g/dL (1.7-4.1); Glucose 103 mg/dL (80-110); HDL Cholesterol 47 mg/dL (40-60); HEMOLYSIS < 15 (0-50); LDL Cholesterol Calculated 179 mg/dL (<100); Potassium 4.5 mmol/L (3.4-5.1); Sodium 139 mmol/L (137-145); Total Protein 6.7 g/dL (6.3-8.2); Triglycerides 196 mg/dL (35-150)
== END ==
PROVIDERS: PCP Family Medicine; Referring Provider Internal Medicine Cardiovascular Disease; Visit Provider Internal Medicine Cardiovascular Disease
DX: I25.10 Atherosclerotic heart disease of native coronary artery without angina pectoris (principal); E78.2 Mixed hyperlipidemia
CPT/HCPCS: 36415; 80053; 80061

== ENCOUNTER 2020-07-18 13:35 | Emergency (ER) | payer OTHER, SELFPAY ==
[2020-07-18 13:43] VITALS: BP 136/67; PULSE 62; RESP 15; TEMP 37.2; O2SAT 97; BMI 25.9
--- NOTE | 2020-07-18 14:15 | PC.NURSE ---
Pt states there has been a bat in their house for the past few days and it flew by her neck and grazed the R side of her neck and she is requesting the rabies vaccine. Pt has previously received the rabies vaccine in 2003 at 2006. Pt is exhibiting no symptoms
[2020-07-18] MEDS: RABIES VACCINE (RABAVERT) 2.5 UNITS SYRINGE IM (15:06)
--- NOTE | 2020-07-18 15:07 | ED_ITS ---
HPI - Recheck/Abnormal Lab/Rx General Chief Complaint: Recheck/Abnormal Lab/Rx Stated Complaint: need rabies shot Time Seen by Provider: 07/18/20 14:17 Source: patient Mode of arrival: Ambulatory Limitations: no limitations History of Present Illness HPI narrative: This is a 74 year old female that comes with concern for rabid bat bite. Patient states that she believes she had a bat bite in the last 10-14 days. There is a small bloody spot on her brow and blood on the pillow, she did not have visualization of a bat at that time but did have contact with the bat when it flew into her head following Wednesday and then had noted to be flying around the room and with an unusual pattern. They were not able to capture it. They left the doors open and have not seen the back since. The patient herself was vaccinated received immunoglobulin in 2002 followed by repeat possible exposure and vaccination 2006 with no immune globulin. She does have a history of coronary artery disease with 5 stents, she takes lisinopril, metoprolol and Prasugral. Patient's primary care is Dr. Harris. Related Data Home Medications Medication Instructions Recorded Confirmed furosemide 20 mg PO DAILY 01/11/19 07/25/19 lisinopril 1.25 mg PO DAILY 01/11/19 07/25/19 metoprolol tartrate 25 mg PO DAILY 01/11/19 07/25/19 nitroglycerin 0.4 mg SUBLINGUAL PRN PRN 01/11/19 07/25/19 potassium chloride 10 meq PO DAILY 01/11/19 07/25/19 prasugrel 10 mg PO DAILY 01/11/19 07/25/19 evolocumab 140 mg/mL subcutaneous 140 mg SUBCUT Q2W 05/24/19 07/25/19 syringe lorazepam 0.5 mg tablet 0.5 mg PO DAILY PRN 07/25/19 07/25/19 Previous Rx's Medication Instructions Recorded nitrofurantoin macrocrystal 100 mg See Rx Instructions .ROUTE 06/22/19 capsule .COMPLEX #29 capsule lorazepam 0.5 mg tablet See Rx Instructions .ROUTE 02/13/20 .COMPLEX #30 tab estradiol See Rx Instructions .ROUTE 03/27/20 .COMPLEX #42.5 gram Allergies Allergy/AdvReac Type Severity Reaction Status Date / Time aspirin Allergy Severe Many- Verified 07/18/20 13:43 Worst anaphlaxis NSAIDS (Non-Steroidal Allergy Severe heart Verified 07/18/20 13:43 Anti-Inflamma stopped adenosine [ADENOSINE] Allergy Unknown Verified 07/18/20 13:43 Opioids - Morphine Analogues Allergy Unknown Verified 07/18/20 13:43 [OPIOIDS - MORPHINE ANALOGUES] Rucorms-Ojk-Kmo Reductase Allergy Unknown Verified 07/18/20 13:43 Inhibitor [UOEWDII-OIN-QOP REDUCTASE INHIBITOR] Sulfa (Sulfonamide Allergy Unknown Verified 07/18/20 13:43 Antibiotics) [SULFA (SULFONAMIDE ANTIBIOTICS)] Review of Systems Review of Systems ROS Unobtainable: All systems reviewed & are unremarkable except as noted in HPI and below Patient History Medical History Acute coronary syndrome Anxiety disorder due to medical condition Chest pain Coronary artery disease History of porphyria Pelvic relaxation Renal cyst, left Vaginal vault prolapse Surgical History H/O coronary angioplasty Social History Smoking Status: Former smoker Smoking Status: Former smoker alcohol intake frequency: 0-2 drinks per day Substance Use Type: does not use Exam Narrative Exam Narrative: GENERAL: Alert and oriented x three, well-nourished, well- appearing female in no acute distress. HEENT: Head normocephalic, atraumatic, EOMI, pupils reactive, face symmetric, moist mucous membranes NECK: Supple, full range of motion CARDIOVASCULAR: Regular rate and rhythm without murmurs, rubs or gallops. RESPIRATORY: Breath sounds equal bilaterally, no wheezes rales or rhonchi. ABDOMEN: Soft, nontender. Normoactive bowel sounds all 4 quadrants. No guarding or rebound, rigidity, no mass : No CVA tenderness EXTREMITIES: Normal range of motion, no clubbing or edema. Neurovascularly intact NEUROLOGICAL: Cranial nerves II through XII grossly intact. Moving all extremities SKIN: Warm, dry, no petechiae, no rashes or lesions. Initial Vital Signs Initial Vital Signs: Vital Signs Temperature 98.9 F 07/18/20 13:43 Pulse Rate 62 07/18/20 13:43 Respiratory Rate 15 07/18/20 13:43 Blood Pressure 136/67 07/18/20 13:43 Pulse Oximetry 97 07/18/20 13:43 Course Orders Ordered: Discontinued Medications Rabies Vaccine (Rabies Vaccine (Rabavert) 2.5 Units Syringe) 2.5 units IM .ONCE ONE Stop: 07/18/20 14:42 Last Admin: 07/18/20 15:06 Dose: 2.5 units Documented by: BULL Vital Signs Vital signs: Vital Signs - 8 hr 07/18/20 13:43 07/18/20 15:11 07/18/20 15:40 Temperature 98.9 F Pulse Rate 62 60 Respiratory Rate 15 Blood Pressure 136/67 107/62 106/60 Pulse Oximetry 97 97 97 MDM - Recheck/Abnormal Lab/Rx MDM Narrative Medical decision making narrative: CDC guidelines recommend for individuals who had prior prophylaxis and immune globulin to have the rabies vaccine on day 0 and 3 for a total of 2 doses with no immunoglobulin given. Patient did have her vaccine in globulin in 2002, she also had repeat vaccination in 2006 with no globulin after a 2nd exposure. Discharge Plan Departure Patient Disposition: Home Clinical Impression: Need for immunization against rabies Instructions: DI for Rabies Vaccine Activity Restrictions/Additional Instructions: CDC guidelines recommend that you have the rabies immunization for two doses total. Day 0-07/18/20 Day 3-07/21/20 is when you should receive your second dose It is recommended that you have at least 2 weeks from your last rabies vaccine between immunizations when receiving your Pfizer coronavirus vaccination, this would 08/05/20 or later. Please feel free to consult your physician for further recommendations. If you have any fevers, rashes, swelling of her lips face or mouth, altered mental status, new weakness numbness, difficulty with movement, chest pain, shortness of breath, dysphagia, or other new or concerning symptoms please return to the department for repeat evaluation. Prescriptions: No Action nitrofurantoin macrocrystal 100 mg capsule See Rx Instructions .ROUTE .COMPLEX Qty: 29 RF: 3 lorazepam 0.5 mg tablet See Rx Instructions .ROUTE .COMPLEX Qty: 30 RF: 0 estradiol 0.01 % (0.1 mg/gram) cream See Rx Instructions .ROUTE .COMPLEX Qty: 42.5 RF: 2 Repatha Syringe 140 mg/mL syringe 140 mg SUBCUT Q2W RF: 0 lorazepam 0.5 mg tablet 0.5 mg PO DAILY PRNRF: 0 potassium chloride 10 mEq tablet extended release 10 meq PO DAILY RF: 0 nitroglycerin 0.4 mg tablet, sublingual 0.4 mg sublingual PRN PRN (Reason: Chest Pain) RF: 0 furosemide 20 mg tablet 20 mg PO DAILY RF: 0 lisinopril 2.5 mg tablet 1.25 mg PO DAILY RF: 0 metoprolol tartrate 25 mg tablet 25 mg PO DAILY RF: 0 prasugrel 10 mg tablet 10 mg PO DAILY RF: 0 Referrals: Kayla Harris DO [Primary Care Provider] -
[2020-07-18 15:11] VITALS: BP 107/62; PULSE 60; O2SAT 97
[2020-07-18 15:40] VITALS: BP 106/60; O2SAT 97
== END 2020-07-18 15:56 | disposition home or self-care (01) ==
PROVIDERS: Emergency Provider Emergency Medicine; PCP Family Medicine
DX: S01.159A Open bite of unspecified eyelid and periocular area, initial encounter (principal); W64.XXXA Exposure to other animate mechanical forces, initial encounter; Z23 Encounter for immunization
CPT/HCPCS: 90471; 90675; 99281; 99283

== ENCOUNTER 2020-07-22 14:30 | Emergency (ER) | payer OTHER, SELFPAY ==
--- NOTE | 2020-07-22 14:47 | ED.RECABL ---
HPI - Recheck/Abnormal Lab/Rx General Chief Complaint: Environmental Exposure Stated Complaint: 2nd round of rabies Time Seen by Provider: 07/22/20 14:46 Source: patient Mode of arrival: Ambulatory Limitations: no limitations History of Present Illness HPI narrative: 74-year-old female former smoker with history of hypertension presents with her son and a chief complaint of request for 2nd rabies vaccine. There was seen and evaluated here on July 18 and received the 1st round. They had potentially been bitten by bats 10-14 days prior to their 1st visit. CDC recommendations were for 2 vaccinations 3 days apart. They denied any new symptoms. She has had no fever chills. She denies any headache or sore throat. She denies any chest pain, shortness of breath or cough. She has had no nausea or vomiting. Initial visit (ago): day(s) Symptoms since prior visit: no new symptoms Associated symptoms: none Related Data Home Medications Medication Instructions Recorded Confirmed furosemide 20 mg PO DAILY 01/11/19 07/25/19 lisinopril 1.25 mg PO DAILY 01/11/19 07/25/19 metoprolol tartrate 25 mg PO DAILY 01/11/19 07/25/19 nitroglycerin 0.4 mg SUBLINGUAL PRN PRN 01/11/19 07/25/19 potassium chloride 10 meq PO DAILY 01/11/19 07/25/19 prasugrel 10 mg PO DAILY 01/11/19 07/25/19 evolocumab 140 mg/mL subcutaneous 140 mg SUBCUT Q2W 05/24/19 07/25/19 syringe lorazepam 0.5 mg tablet 0.5 mg PO DAILY PRN 07/25/19 07/25/19 Previous Rx's Medication Instructions Recorded nitrofurantoin macrocrystal 100 mg See Rx Instructions .ROUTE 06/22/19 capsule .COMPLEX #29 capsule lorazepam 0.5 mg tablet See Rx Instructions .ROUTE 02/13/20 .COMPLEX #30 tab estradiol See Rx Instructions .ROUTE 03/27/20 .COMPLEX #42.5 gram Allergies Allergy/AdvReac Type Severity Reaction Status Date / Time aspirin Allergy Severe Many- Verified 07/18/20 13:43 Worst anaphlaxis NSAIDS (Non-Steroidal Allergy Severe heart Verified 07/18/20 13:43 Anti-Inflamma stopped adenosine [ADENOSINE] Allergy Unknown Verified 07/18/20 13:43 Opioids - Morphine Analogues Allergy Unknown Verified 07/18/20 13:43 [OPIOIDS - MORPHINE ANALOGUES] Imuquyf-Zrg-Saz Reductase Allergy Unknown Verified 07/18/20 13:43 Inhibitor [[id number] REDUCTASE INHIBITOR] Sulfa (Sulfonamide Allergy Unknown Verified 07/18/20 13:43 Antibiotics) [SULFA (SULFONAMIDE ANTIBIOTICS)] Review of Systems Constitutional Constitutional: Denies chills, Denies fatigue, Denies fever(s), Denies frequent falls, Denies lethargy and Denies weakness Eyes Eyes: Denies change in vision, Denies eye discharge, Denies irritation and Denies loss of vision ENT Ears, Nose, Mouth, and Throat: Denies change in voice, Denies dizziness, Denies neck pain, Denies sore throat and Denies throat swelling Cardiovascular Cardiovascular: Denies chest pain, Denies irregular heart rhythm, Denies lightheadedness, Denies palpitations, Denies dyspnea, Denies dyspnea on exertion and Denies orthopnea Respiratory Respiratory: Denies cough, Denies dyspnea, Denies dyspnea on exertion and Denies wheezing Gastrointestinal Gastrointestinal: Denies abdominal pain, Denies change in bowel habits, Denies diarrhea, Denies nausea and Denies vomiting Musculoskeletal Musculoskeletal: Denies neck pain and Denies numbness Integumentary/Breasts Skin/Breast: Denies pruritus, Denies erythema, Denies rash and Denies wounds Neurologic Neurologic: Denies behavioral changes, Denies confusion, Denies dizziness, Denies frequent falls, Denies loss of vision, Denies numbness and Denies weakness Psychiatric Psychiatric: Denies anxiety, Denies behavioral changes, Denies confusion, Denies depression, Denies homicidal ideation and Denies suicidal ideation Endocrine Endocrine: Denies fatigue, Denies flushing and Denies palpitations Hematologic/Lymphatic Hematologic/Lymphatic: Denies easy bruising Allergic/Immunologic Allergic/Immunologic: Denies urticaria, Denies throat swelling and Denies wheezing Patient History Medical History Acute coronary syndrome Anxiety disorder due to medical condition Chest pain Coronary artery disease History of porphyria Pelvic relaxation Renal cyst, left Vaginal vault prolapse Surgical History H/O coronary angioplasty Social History Smoking Status: Former smoker Smoking Status: Former smoker alcohol intake frequency: 0-2 drinks per day Substance Use Type: does not use Exam Narrative Exam Narrative: GEN: AOx3 and in mild distress EYES: Pupils are equal, round, and reactive to light and accommodation. Extraoccular muscles are intact bilaterally. There is no subconjunctival hemorrhage or exudate. CHEST: Lungs are clear to auscultation bilaterally and free of wheezes, rales, or rhonchi. Heart rate is regular rhythm, there are no murmurs, clicks, rubs, or gallops. There is no chest wall tenderness. ABD: Abdomen is soft and nontender. There is no guarding or rebound. Bowel sounds are normal in all 4 quadrants. There is no mass or organomegaly. EXT: Full painless ROM of all extremities with no loss of sensation or strength. SKIN: Warm, pink, and dry. No erythema or rash Initial Vital Signs Initial Vital Signs: Vital Signs Temperature 97.1 F L 07/22/20 15:02 Pulse Rate 65 07/22/20 15:02 Respiratory Rate 12 07/22/20 15:02 Blood Pressure 112/56 L 07/22/20 15:02 Pulse Oximetry 97 07/22/20 15:02 Course Orders Ordered: Discontinued Medications Rabies Vaccine (Rabies Vaccine (Rabavert) 2.5 Units Syringe) 2.5 units IM .ONCE ONE Stop: 07/22/20 14:48 Last Admin: 07/22/20 15:19 Dose: 2.5 units Documented by: KYAW Vital Signs Vital signs: Vital Signs - 8 hr 07/22/20 15:02 07/22/20 16:04 Temperature 97.1 F L Pulse Rate 65 62 Respiratory Rate 12 14 Blood Pressure 112/56 L 107/81 Pulse Oximetry 97 97 Discharge Plan Departure Patient Disposition: Home Clinical Impression: Encounter for repeat administration of rabies vaccination Instructions: DI for Rabies Vaccine Activity Restrictions/Additional Instructions: *You have been diagnosed with [2nd rabies shot] *What to do: *Take medications as directed *Follow up with your primary care provider in 2-3 days, call for an appointment. Let them know you were seen in the Emergency Department and that we ask that you be seen in follow up *Return to ER if you should have any new, worsening or concerning symptoms Prescriptions: No Action nitrofurantoin macrocrystal 100 mg capsule See Rx Instructions .ROUTE .COMPLEX Qty: 29 RF: 3 lorazepam 0.5 mg tablet See Rx Instructions .ROUTE .COMPLEX Qty: 30 RF: 0 estradiol 0.01 % (0.1 mg/gram) cream See Rx Instructions .ROUTE .COMPLEX Qty: 42.5 RF: 2 Repatha Syringe 140 mg/mL syringe 140 mg SUBCUT Q2W RF: 0 lorazepam 0.5 mg tablet 0.5 mg PO DAILY PRNRF: 0 potassium chloride 10 mEq tablet extended release 10 meq PO DAILY RF: 0 nitroglycerin 0.4 mg tablet, sublingual 0.4 mg sublingual PRN PRN (Reason: Chest Pain) RF: 0 furosemide 20 mg tablet 20 mg PO DAILY RF: 0 lisinopril 2.5 mg tablet 1.25 mg PO DAILY RF: 0 metoprolol tartrate 25 mg tablet 25 mg PO DAILY RF: 0 prasugrel 10 mg tablet 10 mg PO DAILY RF: 0 Referrals: Kayla Harris DO [Primary Care Provider] -
[2020-07-22 15:02] VITALS: BP 112/56; PULSE 65; RESP 12; TEMP 36.2; O2SAT 97; BMI 56.9
[2020-07-22] MEDS: RABIES VACCINE (RABAVERT) 2.5 UNITS SYRINGE IM (15:19)
[2020-07-22 16:04] VITALS: BP 107/81; PULSE 62; RESP 14; O2SAT 97
== END 2020-07-22 16:06 | disposition home or self-care (01) ==
PROVIDERS: Emergency Provider Emergency Medicine; PCP Family Medicine
DX: Z23 Encounter for immunization (principal); T14.8XXA Other injury of unspecified body region, initial encounter; W64.XXXA Exposure to other animate mechanical forces, initial encounter
CPT/HCPCS: 90471; 90675; 99281; 99283

== ENCOUNTER → 2020-11-19 09:27 | Outpatient (CLI) | payer OTHER, SELFPAY ==
[2020-11-19 11:09] LABS: Alanine Aminotransferase 13 IU/L (<35); Albumin 3.9 g/dL (3.5-5.0); Albumin Globulin Ratio 1.6 (1.0-2.8); Alkaline Phosphatase 58 U/L (38-126); Aspartate Aminotransferase 25 IU/L (14-36); BUN Creatinine Ratio 14.3 (6-22); Bilirubin Total 0.8 mg/dL (0.2-1.3); Blood Urea Nitrogen 11 mg/dL (7-17); Calcium 9.6 mg/dL (8.4-10.2); Carbon Dioxide 25 mmol/L (22-32); Chloride 107 mmol/L (98-107); Cholesterol 260 mg/dL (140-199); Estimated Glomerular Filt Rate > 60.0 mL/min (>60); Globulin 2.4 g/dL (1.7-4.1); Glucose 106 mg/dL (80-110); HDL Cholesterol 59 mg/dL (40-60); HEMOLYSIS < 15 (0-50); LDL Cholesterol Calculated 180 mg/dL (<100); Potassium 4.6 mmol/L (3.4-5.1); Sodium 137 mmol/L (137-145); Total Protein 6.3 g/dL (6.3-8.2); Triglycerides 107 mg/dL (35-150)
== END ==
PROVIDERS: PCP Family Medicine; Referring Provider Internal Medicine Cardiovascular Disease; Visit Provider Internal Medicine Cardiovascular Disease
DX: I25.10 Atherosclerotic heart disease of native coronary artery without angina pectoris (principal)
CPT/HCPCS: 36415; 80053; 80061

== ENCOUNTER → 2021-01-15 13:20 | Outpatient (CLI) | payer OTHER, SELFPAY ==
[2021-01-15 13:28] LABS: Bacteria Urine None Seen; RBC Urine None Seen (0-5/HPF)
[2021-01-15 13:59] LABS: Appearance Urine UA CLEAR; Bilirubin Urine UA NEGATIVE (NEGATIVE); Color Urine UA YELLOW; Glucose Urine UA NEGATIVE (Negative); Ketones Urine UA NEGATIVE (NEGATIVE); Leukocyte Esterase Urine UA NEGATIVE (NEGATIVE); Nitrite Urine UA NEGATIVE (Negative); Occult Blood Urine UA NEGATIVE (Negative); Protein Urine UA NEGATIVE (Negative); Specific Gravity Urine UA 1.015 (1.000-1.035); Urobilinogen Urine UA 0.2 E.U./dL (0.2)
[2021-01-15 14:07] LABS: Culture Indicated Urine Cult Not Indicated; Squamous Epithelial Cell Urine 0-1 /HPF (0-5/HPF); WBC Urine 0-1/HPF (0-5/HPF)
== END ==
PROVIDERS: PCP Family Medicine; Referring Provider Obstetrics & Gynecology; Visit Provider Obstetrics & Gynecology
DX: N30.01 Acute cystitis with hematuria (principal)
CPT/HCPCS: 81001

== ENCOUNTER → 2021-02-25 08:40 | Outpatient (CLI) | payer OTHER, SELFPAY ==
[2021-02-25 10:39] LABS: Appearance Urine UA CLEAR; Bilirubin Urine UA NEGATIVE (NEGATIVE); Color Urine UA YELLOW; Glucose Urine UA NEGATIVE (Negative); Ketones Urine UA NEGATIVE (NEGATIVE); Leukocyte Esterase Urine UA NEGATIVE (NEGATIVE); Nitrite Urine UA NEGATIVE (Negative); Occult Blood Urine UA NEGATIVE (Negative); Protein Urine UA NEGATIVE (Negative); Specific Gravity Urine UA 1.015 (1.000-1.035); Urobilinogen Urine UA 0.2 E.U./dL (0.2)
[2021-02-25 10:40] LABS: pH Urine UA 5.5 (4.5-8.0)
== END ==
PROVIDERS: PCP Obstetrics & Gynecology; Referring Provider Obstetrics & Gynecology; Visit Provider Obstetrics & Gynecology
DX: N39.0 Urinary tract infection, site not specified (principal)
CPT/HCPCS: 81003

== ENCOUNTER → 2021-03-10 15:07 | Outpatient (CLI) | payer OTHER, SELFPAY ==
--- NOTE | 2021-03-10 15:09 | DI.RAD.S_ITS ---
PROCEDURE: XR KNEE LT 3V INDICATIONS: CHRONIC PAIN OF LEFT KNEE TECHNIQUE: 3 views of the knee were acquired. COMPARISON: [facility] Gilchristjulia Nicole, CHRISTIANO, XR KNEE ARTHRITIC SERIES LT, 01/07/2018, 9:27. FINDINGS: Bones: No fractures or dislocations. No suspicious bony lesions. There is moderate to severe right medial compartment narrowing with subchondral sclerosis and periarticular osteophytes, slightly progressive compared to 2018. Moderate left medial compartment narrowing is present with periarticular osteophytes, relatively stable compared to prior exam. Moderate patellofemoral compartment narrowing is present on the right. Soft tissues: Moderate joint effusion. No suspicious soft tissue calcifications. IMPRESSION: 1. 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 Dictated by: Jory Tamez M.D. on 03/10/2021 at 15:53 Approved by: Jory Tamez M.D. on 03/10/2021 at 15:54
== END ==
PROVIDERS: PCP Internal Medicine; Referring Provider Internal Medicine; Visit Provider Internal Medicine
DX: M25.562 Pain in left knee (principal); M25.462 Effusion, left knee; G89.29 Other chronic pain
CPT/HCPCS: 73562

== ENCOUNTER 2021-04-03 14:00 | Outpatient (RCR) | payer OTHER, SELFPAY ==
--- OUTSIDE RECORDS SUMMARY | 2020-11-07 12:03 | XMS_ITS | Referral Summary ---
:1945 Author Organization [facility] Address [address] [place] [id number] Care Team Providers Name Role Phone Tree Ordonez DO Primary Care Provider Reason for Referral Hospital - Outpatient (Routine) Status Reason Specialty Diagnoses / Procedures Referred By Tree marcuserred To Contact Contact Authorized Diagnoses CAD S/P percutaneous coronary angioplasty Parish Cardoso, [facility] [address] [place] [address] [address] [id number] [place], [place] Phone: [phone] Electronically signed by Parish Cardoso MD at Reason for Visit Reason Comments Follow-up Coronary artery disease invo lving yomba shoshone coronary artery of yomba shoshone heart without angina pectoris Encounter Details Date Type Department Care Team Description 10/01/2020 Office Visit [facility] Parish Cardoso Paroxysmal atrial fibrillation (CMS/HCC) (Primary Dx); [facility] [place] Coronary artery disease involving yomba shoshone coronary artery of yomba shoshone heart without angina pectoris; [place] [address] [address] CAD S/P percutaneous coronar y angioplasty; [address] Mixed hyperlipidemia [address] [place] [id number] Allergies Active Allergy Reactions Severity Noted Date Comments Adenosine Anaphylaxis High 06/04/2016 Other reaction( s): respiratory arr est Aspirin Anaphylaxis, Rash High 08/17/2017 Other reac tion(s): Adverse Drug Re action Per patient bl eeding problems Hypot hermic. States also get s sulma, alejandra y mind. 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 See media tab for info about impacted drugs. Other reaction( s): Other (See Comm ents) Per patient bl eeding problems Hypot hermic Other reaction( s): intolerance, Th roat swelling Atorvastatin 10/12/2003 Other reaction( s): Myalgia Celecoxib 12/20/2009 Clopidogrel GI intolerance Medium 08/25/2016 Severe abdomi nal pain Ezetimibe High 01/10/2017 Other reaction( s): Muscular Pain Hydrocodone Morphine Anaphylaxis High 06/04/2016 Stopped breath ing Morphine Sulfate 01/25/2019 Other react ion(s): heart stopped, labile emotions Nitrofurantoin 04/01/2004 Opium Tincture Anaphylaxis High 06/04/2016 Oxycodone-Acetaminophen 12/18/2002 Pravastatin Ranitidine Hcl 11/05/2016 Other reactio n(s): Dizziness Puknvql-Wlr-Ajf Reductase Low 06/04/2016 Ot her reaction(s): Inhibitors Myalgia Rhabdomyolysis Other reaction( s): Myalgia, rhabdomyolysis, anaphylaxis Rhabdomyolysis Sulfa (Sulfonamide 06/30/2013 Other jose ction(s): Antibiotics) Unknown Other reaction( s): hives Trimethoprim [place] Venom Anaphylaxis High 10/14/2017 documented as of this encounter (statuses as of 11/06/2020) Medications Medication Sig Dispensed Refills Start End Date Status Date aflibercept 2 mg by 0 Active (EYLEA) 2 mg/0.05 intravitreal mL intra-ocular route every 30 injection (thirty) days. EPINEPHrine Inject 0.3 mg 0 Acti ve (EPIPEN) 0.3 into the thigh 8 mg/0.3 mL as needed injection syringe estradiol Insert 1 g into 0 Acti ve (ESTRACE) 0.01 % the vagina once 9 (0.1 mg/gram) a week vaginal cream nitroglycerin Place 1 tablet 25 tablet 2 A ctive (NITROSTAT) 0.4 mg (0.4 mg total) 0 SL under the tongue tabletIndications: every 5 (five) Coronary artery minutes as disease involving needed for chest y[place] shoshone coronary pain artery of yomba shoshone heart without angina pectoris nitroglycerin Place 0.4 mg 0 Act patricio (NITROSTAT) 0.4 mg under the tongue SL tablet every 5 (five) minutes as needed for chest pain amoxicillin Take 2,000 mg by 0 A ctive (AMOXIL) 500 mg mouth as needed capsule metoprolol Take 0.5 tablets 90 tablet 4 12/26/19 Ac tive tartrate (12.5 mg total) 1 22 (LOPRESSOR) 25 mg by mouth 2 (two) tabletIndications: times a day Coronary artery disease involving yomba shoshone coronary artery of yomba shoshone heart without angina pectoris lisinopriL Take 0.5 tablets 45 tablet 4 12/26/19 Ac tive (PRINIVIL) 2.5 mg (1.25 mg total) 1 22 tabletIndications: by mouth daily Coronary artery disease involving yomba shoshone coronary artery of yomba shoshone heart without angina pectoris prasugreL Take 1 tablet 90 tablet 4 12/26/19 Active (EFFIENT) (10 mg total) by 1 22 tabletIndications: mouth daily Coronary artery disease involving yomba shoshone coronary artery of yomba shoshone heart without angina pectoris prasugreL Take 1 tablet 90 tablet 3 10/02/19 Discon tinued (EFFIENT) (10 mg total) by 0 21 (Re order) tabletIndications: mouth daily Coronary artery disease involving yomba shoshone coronary artery of yomba shoshone heart without angina pectoris metoprolol Take 0.5 tablets 90 tablet 3 10/02/19 Di scontinued tartrate (12.5 mg total) 0 21 (Reo rder) (LOPRESSOR) 25 mg by mouth 2 (two) tabletIndications: times a day Coronary artery disease involving yomba shoshone coronary artery of yomba shoshone heart without angina pectoris lisinopriL Take 0.5 tablets 45 tablet 3 10/02/19 Di scontinued (PRINIVIL) 2.5 mg (1.25 mg total) 0 21 (Reorder) tabletIndications: by mouth daily Coronary artery disease involving yomba shoshone coronary artery of yomba shoshone heart without angina pectoris documented as of this encounter (statuses as of 11/06/2020) Active Problems Problem Noted Date History of prediabetes 03/21/2020 Overview: 6.0 in October 2018 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 Not on amiodarone. After [place]. Last Assessment & Plan: Patient was on amiodarone but has discontinued. The only blood thinner that she is taking is prasugrel. No recurrent episodes of atrial fibrillation since myocardial infarction. Presence of drug coated stent in left circumflex coron sanjay artery 12/13/2018 Angina pectoris 10/30/2018 Metabolic disorder 11/22/2017 Coronary artery disease involving yomba shoshone coronary tristan ry of yomba shoshone heart 10/05/2016 without angina pectoris Last Assessment & Plan: Coronary artery disease is stable. Continue current treatment regimen. Continue current medications. S/P VICKIE to RCA Cardiac status will be reassessed in 1 y ear. She cannot tolerate low-dose aspirin he has since to be on prasugrel for the rest of life. Patient was intolerant to clopidogrel. Idiopathic polypoidal choroidal vasculopathy 7 Mixed hyperlipidemia 10/05/2016 Last Assessment & Plan: Patient is intolerant to statins. She i s intolerant to Zetia. The patient requires Repatha or Praluent. However she has be en quite hesitant to start this medication. She will let me know when she is ready t o start. Statin intolerance 10/05/2016 Acquired absence of both cervix and uterus 09/17/2016 Carotid stenosis, left 09/17/2016 Stenosis of subclavian artery 09/17/2016 Last Assessment & Plan: Again no ways to treat this medically si nce she is intolerant to PAD and CAD traditional medications. Continue to mon itor for any new symptoms. Trigger finger 11/18/2015 Sensorineural hearing loss, bilateral 10/01/2015 Exudative age-related macular degeneration 06/30/2013 Other psoriasis 02/26/2011 Primary localized osteoarthrosis, pelvic region and th igh 06/13/2009 Pilonidal cyst with abscess 06/13/2009 Diverticulosis of large intestine without perforation or abscess without 01/11/2001 bleeding Overview: Overview: Overview: 02/17 colonoscopy showed tics and adenoma tous and hyperplastic polyps, Dr Almaguer. Next in 3 yrs DDD (degenerative disc disease), cervical 10/03/1999 documented as of this encounter (statuses as of 11/06/2020) Resolved Problems Problem Noted Date Resolved Date NSTEMI (non-ST elevated myocardial infarction) 12/27/2019 12/27/2019 Non-rheumatic mitral regurgitation 12/13/201803/16 Overview: Severe MR (ischemic) Last Assessment & Plan: Severe MR has significantly improved which confirms that this was ischemic mitral regurgitation. No further workup is needed. documented as of this encounter (statuses as of 11/06/2020) Immunizations Name Administration Dates Next Due FLU High Dose 65+ (Fluzone) 01/22/2020, 03/01/2017, 02/15/20 16, 05/28/2015 FLU PF 6+Mos Quad (Fluzone, FluLaval, 04/09/2014, 04/14/2013 Fluarix) FLU PF 6-35 Mo (Fluzone 0.25 mL 04/09/2014, 02/26/2011, 05/07 Syringe) Hep A-Hep B, Adult (Twinrix) 10/09/2010, 04/22/2010, 010 Influenza Trivalent, Adjuvanted, 03/06/2019, 03/08/2018 Preservative Free Influenza, Quadrivalent 04/09/2014, 02/26/2011, 02/20/2010, 05/23/2001 Influenza, Seasonal, Injectable 02/20/2010 Influenza, Unspecified 05/23/2001 [id number] Vaccine 08/25/2020, 06/23/2020 Pneumococcal Conjugate PCV13 11/18/2015 ([id number]) Pneumococcal Polysaccharide PPV23 08/06/2009 ([id number]) Rabies 01/27/2007 Rabies Diploid Cell Culture 07/22/2020, 07/18/2020, 01/28/20 07 TD Preservative Free (Tenivac) 01/18/2007 documented as of this encounter Social History Tobacco Use Types Packs/Day Years Used Date Light Tobacco Smoker Smokeless Tobacco: Never Used Comments: off and on smoker Alcohol Use Drinks/Week oz/Week Comments No Sex Assigned at Date Recorded Female 03/16/2019 8:28 AM PDT Job Start Date Occupation Industry Not on file Not on file Not on file documented as of this encounter Last Filed Vital Signs Vital Sign Reading Time Taken Comments Blood Pressure 112/70 10/01/2020 11:40 AM PDT Pulse 56 10/01/2020 11:40 AM PDT Temperature - - Respiratory Rate - - Oxygen Saturation - - Inhaled Oxygen Concentration - - Weight 76.5 kg (168 lb 9.6 oz) 10/01/2020 11:40 AM PDT Height 172.7 cm (5' 7.99) 10/01/2020 11:40 AM PDT Body Mass Index 25.64 10/01/2020 11:40 AM PDT documented in this encounter Patient Instructions Patient InstructionsParish Cardoso MD - 10/01/2020 11:40 AM PDT 1. Return to clinic in 1 year. 2. Call us when you are ready to start Repatha. 3. Fasting blood work soon. Patient Education Coronary Artery Disease in Women WHAT YOU NEED TO KNOW: What is coronary artery disease (CAD)? CAD, or heart disease, occurs when arteries that supply blood to your heart become narrow or blocked. CAD is caused by plaque (cholesterol, fat, and other substances) that builds up in your arteries. Oxygen cannot get to your heart when your arteries narrow or become blocked, which may be life-threatening. What increases my risk for CAD? ?? Obesity and lack of exercise ?? Age 45 years or older ?? High blood pressure or high cholesterol ?? Diabetes ?? Smoking ?? Certain medicines, such as control pills ?? Family or personal history of heart attack What are the signs and symptoms of CAD in women? You may not have any symptoms at first. Symptoms may begin slowly but increase quickly as plaque builds up in your arteries. You may not notice symptoms until the artery starts to become blocked. Women often do not have the common signs and symptoms that men tend to have. You may not have tingling in your arm or chest pain. You may instead have a tight, heavy, or burning feeling in your chest. You may also have any of the following: ?? Pain in your back, neck, stomach, or jaw ?? Shortness of breath, or a cough ?? Nausea or vomiting ?? Indigestion, heartburn, or loss of appetite ?? Fast, slow, or pounding heartbeat ?? Tiredness or trouble sleeping ?? Anxiety How is CAD diagnosed in women? CAD is often more difficult to diagnose in women than in men. You may need any of the following: ?? Blood tests will check for high cholesterol or other medical conditions that may have led to CAD. ?? An EKG records the electrical activity of your heart. It is used to check your heart rhythm and it may show if there is damage to your heart. ?? An echocardiogram is a type of ultrasound. Sound waves are used to show the structure, movement,and blood vessels of your heart. ?? An exercise stress test helps healthcare providers see the changes that take place in your heartduring exercise. An EKG is done while you ride an exercise bike or walk on a treadmill. Healthcare providers will ask if you have chest pain or trouble breathing during the test. ?? A stress test with medicine may be done if you cannot do the exercise stress test. You are givenmedicine that causes your heart to work harder. You will be connected to a stress test machine. ?? An angiography, CT scan, or MRI may be done to take pictures of your blood vessels and arteries.The pictures may show how narrow or blocked your blood vessels are. You may be given contrast liquidto help healthcare providers see the pictures better. Tell the healthcare provider if you have ever had an allergic reaction to contrast liquid. Which medicines are used to treat CAD? ?? Blood pressure medicines are given to lower your blood pressure. These medicines may include ACEinhibitors and beta-blockers. HELIO inhibitors help keep your blood vessels relaxed and open. This helps keep blood flowing into your heart. Beta-blockers keep your heart pumping strongly and regularly. This helps keep your heart from working too hard to get oxygen. ?? Cholesterol medicines help lower blood cholesterol levels. ?? Nitrates , such as nitroglycerin, relax the arteries of your heart so it gets more oxygen. They help to relieve your chest pain. ?? Diuretics help your body get rid of extra fluid and protect your heart from more damage. You mayurinate more often while you are taking diuretics. ?? Antiplatelets , such as aspirin, help prevent blood clots. Take your antiplatelet medicine exactly as directed. These medicines make it more likely for you to bleed or bruise. If you are told to take aspirin, do not take acetaminophen or ibuprofen instead. ?? Blood thinners keep clots from forming in your blood. Clots may cause heart attacks, strokes, ordeath. This medicine makes it more likely for you to bleed or bruise. ?? Do not take certain medicines without asking your healthcare provider first. These include NSAIDs, herbal or vitamin supplements, or hormones (estrogen or progestin). Which procedures are used to treat CAD? ?? An angioplasty may be done to open an artery blocked by plaque. A tube with a balloon on the endis threaded into the blocked artery. Once the tube is in the artery, the balloon is inflated. As theballoon inflates, it presses the plaque against the artery wall to open the artery. A stent may be placed in your artery to keep it open. ?? Coronary artery bypass surgery (CABG) is open heart surgery. Healthcare providers take arteries or veins from other areas in your body and use them to bypass or go around the blocked arteries of your heart. What is cardiac rehabilitation? Your healthcare provider may recommend that you attend cardiac rehabilitation (rehab). This is a program run by specialists who will help you safely strengthen your heart and reduce the risk of more heart disease. The plan includes exercise, relaxation, stress management, and heart- healthy nutrition. Healthcare providers will also check to make sure any medicines you are taking are working. What can I do to manage CAD? ?? Do not smoke. Nicotine and other chemicals in cigarettes and cigars can cause heart and lung damage. Ask your healthcare provider for information if you currently smoke and need help to quit. E-cigarettes or smokeless tobacco still contain nicotine. Talk to your healthcare provider before you use these products. ?? Exercise regularly. Exercise at least 30 minutes each day, on most days of the week. Exercise helps to lower high cholesterol and high blood pressure. It can also help you maintain a healthy weight. Ask your healthcare provider about the kind of exercise you should do and how to get started. ?? Maintain a healthy weight. If you are overweight, talk to your healthcare provider about how to lose weight. A weight loss of 10% can improve your heart health. ?? Eat heart healthy foods. Include fresh fruits and vegetables in your meal plan. Choose low-fat foods, such as skim or 1% fat milk, low-fat cheese and yogurt, fish, chicken (without skin), and lean meats. Eat two 4-ounce servings of fish high in omega-3 fats each week, such as salmon, fresh tuna, and lora. Avoid foods that are high in sodium, such as canned foods, potato chips, salty snacks, and cold cuts. Put less table salt on your food. ?? Limit or do not drink alcohol. A drink of alcohol is 12 ounces of beer, 5 ounces of wine, or 1??ounces of liquor. ?? Manage other health conditions. Follow your healthcare provider's advice on how to manage other conditions that can affect your heart health. These include diabetes, high blood pressure, and high cholesterol. You may need to take medicines for these conditions and make other lifestyle changes. ?? Ask if you should have a flu vaccine. The flu can be dangerous for a person who has CAD. The fluvaccine is available every year in the fall. Call 911 for any of the following: ?? You have any of the following signs of a heart attack: ? Squeezing, pressure, or pain in your chest ? You may also have any of the following: ?? Discomfort or pain in your back, neck, jaw, stomach, or arm ?? Shortness of breath ?? Nausea or vomiting ?? Lightheadedness or a sudden cold sweat When should I contact my healthcare provider? ?? You have chest pain that is more frequent or you have chest pain at rest. ?? You feel depressed or anxious. ?? You have questions or concerns about your condition or care. CARE AGREEMENT: You have the right to help plan your care. Learn about your health condition and how it may be treated. Discuss treatment options with your healthcare providers to decide what care you want to receive.You always have the right to refuse treatment. The above information is an rehab aide only. It is not intended as medical advice for individual conditions or treatments. Talk to your doctor, nurseor pharmacist before following any medical regimen to see if it is safe and effective for you. ?? Copyright [employer] 2020 Information is for End User's use only and may not be sold, redistributed or otherwise used for commercial purposes. All illustrations and images included in CareNotes?? are the copyrighted property of [employer] or [employer] documented in this encounter Progress Notes Parish Cardoso MD - 10/01/2020 11:40 AM PDT Subjective Patient ID: Soren Landrum is a 74 y.o. female that presents today for had concerns includingFollow-up (Coronary artery disease involving yomba shoshone coronary artery of yomba shoshone heart without angina pectoris). HPI: Ms. Landrum is a pleasant 74-year-old lady with a history of PCI to the RCA in 2016 who was admitted to [facility] on 10/29/18 with chest discomfort but a normal echocardiogram and normal troponin. She left AMA but returned later with recurrent chest discomfort with EKG changes concerning for acute posterolateral [place] and positive troponins. She was taken to the cardiac catheterization laboratory by Dr. Zheng and was found to have 100% occlusion of her left circumflex and a 50% stenosis in the midportion of the LAD. The RCA was unable to be selectively cannulated because the patient became agitated andcombative on the Lab table and the procedure was terminated. Dr. Eli was consulted but felt that she would need general anesthesia and the patient refused this as this would require intubation. Thus, revascularization was deferred. At that point, it was felt that conservative medical treatment of her infarct was most appropriate. Repeat echocardiogram showed a new inferolateral wall motion abnormality with moderate mitral regurgitation, but a fairly well-preserved EF of around 50-55%. She did nothave further chest discomfort and it was suspect that she completed her infarct based on the timing.On 11/02/2018 she developed episodes of Atrial fibrillation with RVR with a sensation of a bubbly feeling in her chest but no anginal discomfort. She was started on IV amiodarone with conversion to sinus rhythm soon with resolution of her symptoms. Given her multiple medication intolerances, no further anticoagulation was added on top of her prasugrel, and as long as she did not have further prolonged episodes of atrial fibrillation, it was advised simply continue with prasugrel, but if she were tohave recurrent episodes then Eliquis was advised. She was started on p.o. Amiodarone. She was discharged on 11/04/2018. She has been known to have allergies to multiple antiplatelet regimen but has beenable to tolerate prasugrel. She is intolerant to statin, she stats that she had rhabdomyolysis. Hence, she has not been placed on statin. On 11/08/2018 she again presented to [facility] with acute orthopnea. On 11/09/2018 she had cardiac catheterization that showed critical stenosis in the proximal left circumflex artery. The patient received balloon angioplasty and stenting to the proximal left circumflex and proximal first obtuse marginal branch. Her symptoms have improved. She is feeling well. She was about to start Repatha but since the pandemic she has been afraid to started because she didn't want to present herself to the emergency room because of acute side effect. She presented with non-ST elevation myocardial infarction back in December 23. She was eventually taken to the catheterizationlaboratory and had PCI to the RCA. She has a 80% proximal mid LAD stenosis that was not intervened. Patient is here for follow-up after being discharged back on December 27, 2019. She is feeling much better but has questions reasons why she was not given another stent to her LAD. Her most recent echocardiogram shows improved LVEF at 50-55% with WMAs. Past Medical History: Diagnosis Date ??? Anxiety ??? ARMD (age related macular degeneration) ??? Back pain ??? Brain concussion ??? Cancer (CMS/HCC) ??? Carotid artery disease (CMS/HCC) ??? Carotid artery disease without cerebral infarction (CMS/HCC) ??? Carotid stenosis ??? Chronic kidney disease ??? Coronary artery disease involving yomba shoshone coronary artery of yomba shoshone heart without angina pectoris ??? Degeneration of cervical intervertebral disc ??? Diverticulosis of large intestine without perforation or abscess without bleeding ??? Hypercholesterolemia ??? Hyperlipidemia Intolerant to statins - rhabdomyolisis ??? Ischemic heart disease ??? Macular degeneration ??? Metabolic disorder ??? WY (myocardial infarction) ([facility]/HCC) 05/30/2016 x2 ??? WY (myocardial infarction) ([facility]/HCC) 10/2018 came in October and November. November received VICKIE to LCx/OM ??? Myocardial infarction ([facility]/HCC) 05/2016 s/p BMS to RCA ??? Nephrolithiasis ??? Non-rheumatic mitral regurgitation 12/13/2018 Severe MR (ischemic) ??? Non-traumatic rhabdomyolysis ??? Osteoarthritis ??? Other psoriasis ??? PAD (peripheral artery disease) ([facility]/HCC) ??? Persistent atrial fibrillation (CMS/HCC) 12/13/2018 Resolved after amiodarone. Not on amiodarone. After [place]. ??? Sinus bradycardia 12/13/2018 On metoprolol 12.5 mg BID ??? Squamous cell carcinoma ??? Statin intolerance ??? Stenosis of subclavian artery (CMS/HCC) ??? TMJ (dislocation of temporomandibular joint) ??? Unstable angina (CMS/HCC) Past Surgical History: Procedure Laterality Date ??? BLADDER SURGERY 1984 ??? CARDIAC CATHETERIZATION 05/2016 ??? CARDIAC CATHETERIZATION 05/29/2016 Procedure: CV Cor Angio; Surgeon: Nancy Mendoza MD; Location: [facility] ??? CATARACT EXTRACTION, BILATERAL 1985 ??? CHOLECYSTECTOMY 2002 ??? CORONARY ANGIOPLASTY WITH STENT PLACEMENT 12/2019 VICKIE to RCA, 80% to LAD ??? CORONARY STENT PLACEMENT 05/30/2016 BMS to RCA ??? HYSTERECTOMY 1994 ??? HYSTERECTOMY ??? LITHOTRIPSY ??? PILONIDAL CYST / SINUS EXCISION 2004,2006 ??? ROTATOR CUFF REPAIR 1994 ??? TONSILLECTOMY 1950 ??? TOTAL HIP ARTHROPLASTY Bilateral 2007, 2009 ??? WISDOM TOOTH EXTRACTION Family History Problem Relation Age of Onset ??? Cancer Mother Breasts and kidney ??? Aortic aneurysm Mother ??? Aortic aneurysm Father ??? Coronary artery disease Father ??? Hyperlipidemia Father ??? Alzheimer's disease Father ??? Hearing loss Father Social History Socioeconomic History ??? Marital status: Single Spouse name: Not on file ??? Number of children: Not on file ??? Years of education: Not on file ??? Highest education level: Not on file Occupational History ??? Not on file Tobacco Use ??? Smoking status: Light Tobacco Smoker ??? Smokeless tobacco: Never Used ??? Tobacco comment: off and on smoker Substance and Sexual Activity ??? Alcohol use: No ??? Drug use: No ??? Sexual activity: Defer Other Topics Concern ??? Not on file Social History Narrative ??? Not on file Social Determinants of Health Financial Resource Strain: ??? Difficulty of Paying Living Expenses: Food Insecurity: ??? Worried About Running Out of Food in the Last Year: ??? Ran Out of Food in the Last Year: Transportation Needs: ??? Lack of Transportation (Medical): ??? Lack of Transportation (Non-Medical): Physical Activity: ??? Days of Exercise per Week: ??? Minutes of Exercise per Session: Stress: ??? Feeling of Stress : Social Connections: ??? Frequency of Communication with Friends and Family: ??? Frequency of Social Gatherings with Friends and Family: ??? Attends Orthodoxy Services: ??? Active Member of Clubs or Organizations: ??? Attends Club or Organization Meetings: ??? Marital Status: Allergies Allergen Reactions ??? Adenosine Anaphylaxis Other reaction(s): respiratory arrest ??? Aspirin Anaphylaxis and Rash Other reaction(s): Adverse Drug Reaction Per patient bleeding problems Hypothermic. States also gets juandice, muddy mind. 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 See media tab for info about impacted drugs. Other reaction(s): Other (See Comments) Per patient bleeding problems Hypothermic Other reaction(s): intolerance, Throat swelling ??? Ezetimibe Other reaction(s): Muscular Pain ??? Morphine Anaphylaxis Stopped breathing ??? Opium Tincture Anaphylaxis ??? [place] Venom Anaphylaxis ??? Clopidogrel GI intolerance Severe abdominal pain ??? Atorvastatin Other reaction(s): Myalgia ??? Celecoxib ??? Hydrocodone ??? Morphine Sulfate Other reaction(s): heart stopped, labile emotions ??? Nitrofurantoin ??? Oxycodone-Acetaminophen ??? Pravastatin ??? Ranitidine Hcl Other reaction(s): Dizziness ??? Sulfa (Sulfonamide Antibiotics) Other reaction(s): Unknown Other reaction(s): hives ??? Trimethoprim ??? Cgrorkw-Pyj-Qgx Reductase Inhibitors Other reaction(s): Myalgia Rhabdomyolysis Other reaction(s): Myalgia, rhabdomyolysis, anaphylaxis Rhabdomyolysis Current Medication List Sig aflibercept (EYLEA) 2 mg/0.05 mL intra-ocular injection 2 mg by intravitreal route every 30 (thirty) days. amoxicillin (AMOXIL) 500 mg capsule Take 2,000 mg by mouth as needed estradiol (ESTRACE) 0.01 % (0.1 mg/gram) vaginal cream Insert 1 g into the vagina once a week lisinopriL (PRINIVIL) 2.5 mg tablet Take 0.5 tablets (1.25 mg total) by mouth daily metoprolol tartrate (LOPRESSOR) 25 mg tablet Take 0.5 tablets (12.5 mg total) by mouth 2 (two) times a day nitroglycerin (NITROSTAT) 0.[address] 0.4 mg under the tongue every 5 (five) minutes as needed for chest pain prasugreL (EFFIENT) tablet Take 1 tablet (10 mg total) by mouth daily lisinopriL (PRINIVIL) 2.5 mg tablet (Discontinued) Take 0.5 tablets (1.25 mg total) by mouth daily metoprolol tartrate (LOPRESSOR) 25 mg tablet (Discontinued) Take 0.5 tablets (12.5 mg total) by mouth 2 (two) times a day prasugreL (EFFIENT) tablet (Discontinued) Take 1 tablet (10 mg total) by mouth daily EPINEPHrine (EPIPEN) 0.3 mg/0.3 mL injection syringe Inject 0.3 mg into the thigh as needed nitroglycerin (NITROSTAT) 0.[address] 1 tablet (0.4 mg total) under the tongue every 5 (five) minutes as needed for chest pain Review of Systems Constitutional: Negative for fatigue and unexpected weight change. Eyes: Negative for visual disturbance. Respiratory: Negative for shortness of breath. Cardiovascular: Negative for chest pain, palpitations and leg swelling. Gastrointestinal: Negative for blood in stool. Endocrine: Negative for polydipsia and polyuria. Genitourinary: Negative for hematuria. Musculoskeletal: Right shoulder soreness Skin: Negative for rash. Neurological: Negative for dizziness, syncope, weakness and light-headedness. Hematological: Does not bruise/bleed easily. Psychiatric/Behavioral: Negative for agitation. The patient is not nervous/anxious. All other systems reviewed and are negative. Objective BP 112/70 (BP Location: Left arm, Patient Position: Sitting) Pulse (!) 56 Ht 1.727 m Wt 76.5 kg BMI 25.64 kg/m?? Physical Exam Vitals reviewed. Constitutional: Appearance: She is well-developed. HENT: Head: Normocephalic. Cardiovascular: Rate and Rhythm: Normal rate. Pulmonary: Effort: Pulmonary effort is normal. Breath sounds: Normal breath sounds. Skin: General: Skin is warm and dry. Neurological: Mental Status: She is oriented to person, place, and time. Lab Results Component Value Date GLUCOSE 92 09/12/2020 CALCIUM 10.1 09/12/2020 NA 144 09/12/2020 K 4.8 09/12/2020 CO2 31 (H) 09/12/2020 CL 107 09/12/2020 BUN 14.0 09/12/2020 CREATININE 0.83 09/12/2020 Lab Results Component Value Date ALT 9 12/24/2019 AST 19 12/24/2019 BILITOT 0.5 12/24/2019 Lab Results Component Value Date WBC 5.3 12/27/2019 HGB 11.1 (L) 12/27/2019 HCT 34.5 (L) 12/27/2019 MCV 86 12/27/2019 PLT 137 (L) 12/27/2019 Lab Results Component Value Date CHOL 285 (H) 12/23/2018 Lab Results Component Value Date HDL 64 12/23/2018 Lab Results Component Value Date LDL 179 03/23/2020 LDL 213 08/15/2019 LDL 195 (H) 12/23/2018 Lab Results Component Value Date TRIG 130 12/23/2018 Lab Results Component Value Date CHOLHDL 4.5 12/23/201812/2019 Left heart cath Summary: 80% mLAd stenosis 90% mRCA stenosis Patent previously deployed pLCX and OM1 stents PCI 12/2019 RESULT: Successful balloon angioplasty and stenting to the critical distal right coronary artery lesion by deploying one drug-eluting stent (2.0 x 15 mm). A 3.0 mm balloon was used for post stent deployment dilation. The final angiographic result was excellent. ? Echo 05/2019 Interpretation Summary The left ventricle is normal in size. Left ventricular systolic function is low normal. The ejection fraction is estimated to be 50-55%. There has been no significant change since the previous study. There is hypokinesis to akinesis of the basal to mid anterolateral, basal anterior, and basal to mid inferolateral wall. Diastolic parameters suggest a relaxation abnormality of the left ventricle, consistent with probable normal filling pressures. LVEF has not changed since prior study. LVWMs are similar to prior study as well. The right ventricle is normal size. Right ventricular systolic function is borderline reduced. The right ventricular systolic pressure is estimated to be at least 16 mmHg based on an estimated right atrial pressure of 3 mm Hg. Both atria are normal in size. There is mild mitral regurgitation. There is no other significant valvular heart disease. MR and TR have improved significantly. The ascending aorta is mildly enlarged. 12/2019 Echocardiogram Interpretation Summary Sinus bradycardia. Heart rate is 49-53 bpm. Normal LV size and wall thickness. There is basal inferior, mid inferior, mid infero-lateral, basal inferior lateral severe hypokinesis. Ejection fraction is 45-50%. There is mild central mitral regurgitation. Otherwise no significant valvular abnormalities. Compared to prior study 05/12/2019 LV is somewhat less dynamic. Focal WMA's are unchanged from prior study Assessment/Plan Problem List Items Addressed This Visit Circulatory Coronary artery disease involving yomba shoshone coronary artery of yomba shoshone heart without angina pectoris Coronary artery disease is stable. Continue current treatment regimen. Continue current medications. S/P VICKIE to RCA Cardiac status will be reassessed in 1 year. She cannot tolerate low-dose aspirin he has since to be on prasugrel for the rest of life. Patient was intolerant to clopidogrel. Relevant Medications nitroglycerin (NITROSTAT) 0.4 mg SL tablet metoprolol tartrate (LOPRESSOR) 25 mg tablet lisinopriL (PRINIVIL) 2.5 mg tablet prasugreL (EFFIENT) tablet Other Relevant Orders Lipid panel Comprehensive Metabolic Panel Paroxysmal atrial fibrillation (CMS/HCC) - Primary Patient was on amiodarone but has discontinued. The only blood thinner that she is taking is prasugrel. No recurrent episodes of atrial fibrillation since myocardial infarction. Relevant Medications nitroglycerin (NITROSTAT) 0.4 mg SL tablet metoprolol tartrate (LOPRESSOR) 25 mg tablet lisinopriL (PRINIVIL) 2.5 mg tablet prasugreL (EFFIENT) tablet Other Relevant Orders ECG 12 Lead (Clinic - Same Day) (Completed) Endocrine/Metabolic Mixed hyperlipidemia Patient is intolerant to statins. She is intolerant to Zetia. The patient requires Repatha or Praluent. However she has been quite hesitant to start this medication. She will let me know when sheis ready to start. Other Visit Diagnoses CAD S/P percutaneous coronary angioplasty Patient never completed cardiac rehab after her last PCI. I have put in a new referral. Relevant Medications nitroglycerin (NITROSTAT) 0.4 mg SL tablet metoprolol tartrate (LOPRESSOR) 25 mg tablet lisinopriL (PRINIVIL) 2.5 mg tablet prasugreL (EFFIENT) tablet Other Relevant Orders *SRC MV Referral to Cardiac Rehabilitation I have spent 45 minutes reviewing the medical records and images, interviewing and examining the patient, and answering all of the patient???s and/or family???s questions, coordinating his care with the patient???s care team, and documenting. Electronically signed by Parish Cardoso MD 10/01/2020 7:41 PM This note was generated utilizing voice recognition software.?? While attempts have been made to correct mistakes, common errors may occur, including substitution of words that sound phonetically similar to the intended word as well as random substitution errors.?? Please take this into consideration and use clinical context when necessary. documented in this encounter Miscellaneous Notes Assessment & Plan Note - Parish Cardoso MD - 10/01/2020 7:41 PM PDT Associated Problem(s): Mixed hyperlipidemiaPatient is intolerant to statins. She is intolerant to Zetia. The patient requires Repatha or Praluent. However she has been quite hesitant to start this medication. She will let me know when she is ready to start. ssessment & Plan Renate - Parish Cardoso MD - 10/01/2020 7:40 PM PDTAssociated Problem(s): Paroxysmal atrial fibrillation (CMS/HCC)Patient was on amiodarone but has discontinued. The only blood thinner that she is taking is prasugrel. No recurrent episodes of atrial fibrillation since myocardial infarction. ssessment & Plan Note - Parish Cardoso MD - 10/01/2020 7:39 PM PDTAssociated Problem(s): Coronary artery disease involving yomba shoshone coronary artery of yomb[place] shoshone heart without angina pectorisCoronary artery disease is stable. Continue current treatment regimen. Continue current medications. S/P VICKIE to RCA Cardiac status will be reassessed in 1 year. She cannot tolerate low-dose aspirin he has since to be on prasugrel for the rest of life. Patient was intolerant to clopidogrel. documented in this encounter Plan of Treatment Upcoming Encounters Date Type Specialty Care Team Description 11/18/2020 Office Visit Family Medicine SusannetrevorKayla Forman, DO [address] [phone] Scheduled Orders Name Type Priority Associated Diagnoses Order S chedule Lipid panel Lab Routine Coronary artery disease Expe cted: 10/31/2020, involving yomba shoshone Expires: coronary artery of yomba shoshone heart without angina pectoris Comprehensive Metabolic Lab Routine Coronary artery d isease Expected: 10/31/2020, Panel involving yomba shoshone Expires: coronary artery of yomba shoshone heart without angina pectoris Scheduled Referrals Name Type Priority Associated Diagnoses Order S chedule *SRC MV Referral to Outpatient Routine CAD S/P percutaneous Ordered: Cardiac Rehabilitation Referral coronary angioplas ty 10/01/2020 documented as of this encounter Implants Implanted Type Area Outpatient Scheduler Device Identifier Shelf Exp iration Model / Date Serial / L ot Stent Resol [place] Rx 2.5*08mm - [id number] Medtronic [id number] / Implanted: Qty: 1 on 11/09/2018 at [facility] / Stent Resol Jack Rx 3.0*08mm - [id number] Medtronic [id number] / Implanted: Qty: 1 on 11/09/2018 at [facility] / Stent, Resol [place] Rx 2.0*15mm - [id number] Medtroni c [id number] / Implanted: Qty: 1 on 12/25/2019 at [facility] / documented as of this encounter Procedures Procedure Name Priority Date/Time Associated Diagnosis Comme nts ECG 12-LEAD Routine 10/01/2020 1:05 PM Paroxysmal atrial Res ults for this PDT fibrillation (CMS/HCC) proce dure are in the results section. documented in this encounter Results ECG 12 Lead (Clinic - Same Day) (10/01/2020 1:05 PM PDT) Narrative Performed At This result has an attachment that is no t available. Result approved by Parish Cardoso MD on 10/01/20 Result approved by Parish Cardoso MD on 10/01/20 documented in this encounter Visit Diagnoses Diagnosis Paroxysmal atrial fibrillation (CMS/HCC) - Primary Atrial fibrillation Coronary artery disease involving yomba shoshone coronary artery of yomba shoshone heart without angina pectoris CAD S/P percutaneous coronary angioplast y Mixed hyperlipidemia documented in this encounter Insurance Payer Benefit Plan / Subscriber ID Effective Dates Phone Addre ss Type Group [facility] [id number] 2018-Present [employer]AN OF [facility] OPTIONS (Work) documented as of this encounter Advance Directives Documents on File Type Date Recorded Patient Link Cutter Explanati on Advance Directives and Living 11/08/2018 6:25 PM Will Latest Code Status on File Code Status Date Activated Date Inactivated Comments Full Code 12/23/2019 12:47 PM 12/27/2019 1:44 PM Full Code 11/08/2018 6:06 PM 11/12/2018 5:31 PM Full Code 10/31/2018 1:41 AM 11/04/2018 2:57 PM Full Code 10/31/2018 1:01 AM 10/31/2018 1:41 AM Full Code 10/30/2018 6:52 AM 10/30/2018 11:06 AM
== END 2021-04-03 16:00 ==
LOC: CAR 14:00
PROVIDERS: PCP Family Medicine; Referring Provider Internal Medicine Cardiovascular Disease; Visit Provider Internal Medicine Cardiovascular Disease
DX: I25.10 Atherosclerotic heart disease of native coronary artery without angina pectoris (principal); Z98.61 Coronary angioplasty status
CPT/HCPCS: 93798

== ENCOUNTER → 2021-04-03 18:05 | Outpatient (CLI) | payer OTHER, SELFPAY ==
--- NOTE | 2021-04-03 18:06 | DI.MG.S_ITS ---
BILATERAL DIGITAL SCREENING MAMMOGRAM 3D/2D WITH CAD: 04/03/2021 CLINICAL: Routine screening. Family history of breast cancer. Comparison is made to exams dated: 03/05/2020 mammogram, 10/14/2018 mammogram, 10/13/2017 mammogram, and 09/24/2016 mammogram - [facility]. There are scattered fibroglandular elements in both breasts. Current study was also evaluated with a Computer Aided Detection (CAD) system. There is a biopsy clip in the left breast. No significant masses, calcifications, or other findings are seen in either breast. There has been no significant interval change. IMPRESSION: NEGATIVE There is no mammographic evidence of malignancy. A 1 year screening mammogram is recommended. This exam was interpreted at Station ID: [id number]. NOTE: For mammograms, a report in lay terms will be sent to the patient. Approximately 15% of breast malignancies will not be visualized mammographically. In the management of a palpable breast mass, a negative mammogram must not discourage biopsy of a clinically suspicious lesion. Electronically Signed By: Miki king/deepak:04/04/2021 09:18:48 letter sent: Normal Exam ACR BI-RADS Category 1: Negative [id number]
== END ==
PROVIDERS: PCP Internal Medicine; Referring Provider Obstetrics & Gynecology; Visit Provider Obstetrics & Gynecology
DX: Z12.31 Encounter for screening mammogram for malignant neoplasm of breast (principal); Z80.3 Family history of malignant neoplasm of breast
CPT/HCPCS: 77063; 77067

== ENCOUNTER → 2021-04-25 13:54 | Outpatient (CLI) | payer OTHER, SELFPAY ==
--- NOTE | 2021-04-25 | DI.RAD.S_ITS ---
PROCEDURE: XR DEXA AXIAL SKELETON INDICATIONS: Asymptomatic menopausal state COMPARISON: None. FINDINGS: This blank DEXA report has been sent in error by the PACS system. The correct and complete report will be forthcoming in 1-2 days. Thank you for your patience and understanding. Dictated by: Dee Dee Kay MD, PhD on 04/25/2021 at 16:23 Approved by: Dee Dee Kay MD, PhD on 04/25/2021 at 16:23
== END ==
PROVIDERS: PCP Internal Medicine; Referring Provider Internal Medicine; Visit Provider Internal Medicine
DX: Z78.0 Asymptomatic menopausal state (principal)
CPT/HCPCS: 77080; 77081

== ENCOUNTER → 2021-04-30 11:50 | Outpatient (CLI) | payer OTHER, SELFPAY ==
--- NOTE | 2021-04-30 11:53 | DI.MRI.S_ITS ---
PROCEDURE: MRFOOT LT WO CON INDICATIONS: Unspecified sprain of left foot, initial encounter TECHNIQUE: Noncontrast sagittal T1 spin echo and T2 fast spin echo with fat saturation, long-axis T1 spin echo and T2 fast spin echo with fat saturation, short-axis T1 spin echo and T2 fast spin echo with fat saturation through the forefoot. COMPARISON: Reference is made to the left foot radiograph dated December 30, 2020. FINDINGS: Image quality: Excellent. Bones and joints: No bone marrow contusions or metatarsal stress fractures. The sesamoid bones appear in expected positions, with mild internal edema in the medial hallux sesamoid. No metatarsophalangeal joint degeneration. T2 hyperintense/T1 hypointense lesions are seen in the base of the 1st proximal phalanx and 5th metacarpal head, measuring up to 7.2 mm, which may reflect fibrocystic change. Soft tissues: The visualized plantar foot muscles demonstrate normal signal and bulk. Visualized flexor and extensor tendons appear intact, without tenosynovitis. The distal insertions of the peroneus brevis and longus tendons appear intact. The principal Lisfranc ligament appears intact. T2 hyperintense/T1 hypointense signal interposed between the 3rd and 4th metatarsal heads (series 7, image 19), concerning bursitis. Sagittal images demonstrate no evidence for plantar plate tears. IMPRESSION: 1. Minimal edema in the medial hallux sesamoid. 2. The cystic lesions in the 1st proximal phalanx base and 5th metatarsal head, which may reflect fibrocystic change. 3. Fluid signal interposed between the 3rd and 4th metatarsal heads, concerning for bursitis. Dictated by: Silver Mejia M.D. on 04/30/2021 at 13:42 Approved by: Silver Mejia M.D. on 04/30/2021 at 13:56
--- NOTE | 2021-04-30 11:53 | DI.MRI.S_ITS ---
PROCEDURE: MR ANKLE LT WO CON INDICATIONS: Unspecified sprain of left foot, initial encounter TECHNIQUE: Noncontrast sagittal T1 spin echo and T2 fast spin echo with fat saturation, axial proton density fast spin echo and T2 fast spin echo with fat saturation, coronal T1 spin echo and T2 fast spin echo with fat saturation through the ankle/hindfoot. COMPARISON: None. FINDINGS: Bones and joints: Bones: No marrow contusions or fractures. Coalitions: No hindfoot coalitions. Talar dome: No osteochondral injuries of the talar dome. Other: Tibiotalar joint effusion Medial structures: Posterior tibialis: Intact. Flexor digitorum longus: Intact. Mild tenosynovitis Flexor hallucis longus: Intact. Posterior tibial neurovascular bundle: Normal. Deltoid ligament complex: Intact. Spring ligament: Intact. Lateral structures: Anterior talofibular ligament: Intact. Calcaneofibular ligament: Intact. Posterior talofibular ligament: Intact. Anterior tibiofibular ligament: Intact. Posterior tibiofibular ligament: Intact. Intermalleolar ligament: Intact. Tibiofibular syndesmosis: Normal. Peroneus longus: Intact. Minimal tenosynovitis Peroneus brevis: Intact. Minimal tenosynovitis. There is overlying subcutaneous edema Bony peroneal tubercle and retrotrochlear prominence: Normal. Sinus tarsi: Normal. Anterior structures: Tibialis anterior: Intact. Extensor hallucis longus: Intact. Extensor digitorum longus: Intact. Dorsal talonavicular ligament: Intact. Posterior and plantar structures: Achilles tendon: Intact. Although there is mild adjacent edema in Kager's fat pad. Plantar fascia: Mild medial band plantar fasciitis. Muscles: No abductor digiti quinti muscle atrophy to suggest Brewer neuropathy. IMPRESSION: Tibiotalar joint effusion Mild flexor digitorum, peroneus longus and peroneus brevis tenosynovitis. Diffuse scattered mild edema within Kager's fat pad. This raises the possibility of paratenonitis, potentially related to chronic repetitive stress, acute soft tissue contusion or early/mild Achilles tendinopathy. Please correlate clinically Mild medial band plantar fasciitis Dictated by: Pierre Banegas M.D. on 04/30/2021 at 14:09 Approved by: Pierre Banegas M.D. on 04/30/2021 at 14:41
== END ==
PROVIDERS: PCP Internal Medicine; Referring Provider Podiatrist; Visit Provider Podiatrist
DX: S93.602A Unspecified sprain of left foot, initial encounter (principal); M65.872 Other synovitis and tenosynovitis, left ankle and foot; M72.2 Plantar fascial fibromatosis; M25.472 Effusion, left ankle
CPT/HCPCS: 73718; 73721

== ENCOUNTER 2021-05-23 11:12 | Emergency (ER) | payer OTHER, SELFPAY ==
[2021-05-23] VITALS (15 sets, daily range): BP systolic 117–149; BP diastolic 60–71; PULSE 48–61; RESP 12–27; TEMP 36.5; O2SAT 94–100; BMI 25.5
--- NOTE | 2021-05-23 11:24 | DI.RAD.S_ITS ---
PROCEDURE: XR CHEST 1V INDICATIONS: chest pain TECHNIQUE: One view of the chest was acquired. COMPARISON: None. FINDINGS: Surgical changes and devices: None. Lungs and pleura: Lungs are clear. No pleural effusions or pneumothorax. Mediastinum: Mediastinal contours appear normal. Heart size is at the upper limits of normal. Bones and chest wall: No suspicious bony lesions. Overlying soft tissues appear unremarkable. IMPRESSION: No acute cardiopulmonary disease. Dictated by: Adina Rahman M.D. on 05/23/2021 at 12:40 Approved by: Adina Rahman M.D. on 05/23/2021 at 12:40
--- NOTE | 2021-05-23 11:24 | ED_ITS ---
HPI - Chest Pain General Chief Complaint: Chest Pain Stated Complaint: Episodic Lt chest pain. Time Seen by Provider: 05/23/21 11:13 History of Present Illness HPI narrative: 75-year-old female nonsmoker with history of cardiac disease including multiple myocardial infarctions presents by EMS for evaluation of episodic left-sided chest pain that is been going off and on since this morning at 6:30 a.m.. She denies any obvious provocation or palliation. She denies any radiation. She states that when the pain is there it is present for a few minutes and then goes away. She states she feels short of breath when the pain is there. She is not dizzy nor weak or lightheaded. She denies any fever or chills. She has had no nausea, vomiting or diarrhea. She has had some cough. She denies recent travel or history of blood clots. Her last provocative testing from a oxyacetylene cutter was over a year ago. She is followed by Dr. Cardoso at [facility]. She is allergic to aspirin, was therefore not given any Related Data Home Medications Medication Instructions Recorded Confirmed lisinopril 2.5 mg tablet 1.25 mg PO DAILY 01/11/19 03/18/21 metoprolol tartrate 25 mg tablet 25 mg PO DAILY 01/11/19 03/18/21 nitroglycerin 0.4 mg sublingual 0.4 mg SUBLINGUAL PRN PRN 01/11/19 03/18/21 tablet prasugrel 10 mg tablet 10 mg PO DAILY 01/11/19 03/18/21 Previous Rx's Medication Instructions Recorded estradiol See Rx Instructions .ROUTE 03/27/20 .COMPLEX #42.5 gram nitrofurantoin macrocrystal 50 mg 50 mg PO BEDTIME #30 cap 02/21/21 capsule (Macrodantin) Allergies Allergy/AdvReac Type Severity Reaction Status Date / Time aspirin Allergy Severe Many- Verified 03/18/21 13:31 Worst anaphlaxis NSAIDS (Non-Steroidal Allergy Severe heart Verified 03/18/21 13:31 Anti-Inflamma stopped adenosine [ADENOSINE] Allergy Unknown Verified 03/18/21 13:31 Opioids - Morphine Analogues Allergy Unknown Verified 03/18/21 13:31 [OPIOIDS - MORPHINE ANALOGUES] Vbyeytt-HAE-DrY Reductase Allergy Unknown Verified 03/18/21 13:31 Inhibitor [[id number] REDUCTASE INHIBITOR] Sulfa (Sulfonamide Allergy Unknown Verified 03/18/21 13:31 Antibiotics) [SULFA (SULFONAMIDE ANTIBIOTICS)] Review of Systems Review of Systems Narrative: GENERAL: Denies chills, fatigue, malaise, fever, sweats. HEENT: Denies sinus pain, ear pain, sore throat, difficulty swallowing, dizziness. RESPIRATORY: Denies dyspnea, cough, wheezing, hemoptysis, sputum. CARDIOVASCULAR: see HPI GASTROINTESTINAL: Denies nausea, vomiting, abdominal pain, diarrhea, constipation, melena. : Denies dysuria, frequency, incontinence, hematuria, urinary retention. MUSCULOSKELETAL: denies weakness, joint pain, or bony pain SKIN: Denies rash, skin lesions, or other NEUROLOGIC: Denies weakness, headache, numbness, change in speech, confusion, seizures, incoordination. PSYCHIATRIC: No concerning psychosocial issues. 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 Well-developed patient, in mild distress. HEAD: Atraumatic. Normocephalic. EYES: Pupils equal round and reactive. Extraocular motions intact. No scleral icterus. No injection or drainage. ENT: Nose without bleeding, purulent drainage. Throat without erythema, tonsillar hypertrophy or exudate. Airway patent. NECK: Trachea midline. Non tender CARDIOVASCULAR: Regular rate and rhythm without murmurs, gallops, or rubs. RESPIRATORY: Clear to auscultation. Breath sounds equal bilaterally. No wheezes, rales, or rhonchi. GASTROINTESTINAL: Abdomen soft, non-tender, nondistended. EXTREMITIES: No edema or joint tenderness. BACK: Nontender without deformity or crepitance. No flank tenderness. NEURO: AOx3. SKIN: No rash or erythema of visible areas Initial Vital Signs Initial Vital Signs: Vital Signs Temperature 97.7 F 05/23/21 11:19 Pulse Rate 61 05/23/21 11:19 Respiratory Rate 12 05/23/21 11:19 Blood Pressure 117/65 05/23/21 11:19 Pulse Oximetry 97 05/23/21 11:19 Course Orders Ordered: ED Orders 05/23/21 11:24 XR chest 1V Stat EKG-12 Lead Stat 05/23/21 11:36 CRP [C-Reactive Protein Quant] Stat Complete Blood Count AUTO DIFF Stat Comprehensive Metabolic Panel Stat D Dimer Stat Digoxin Stat ESR [Erythrocyte Sedimentation Rate] Stat Lipase Stat NT-proBNP (BNP-Adult 18+) Stat Procalcitonin Stat Troponin & CK Cardiac Panel Stat 05/23/21 14:25 Troponin I Stat EKG-12 Lead Stat 05/23/21 15:23 COVID19 -Nasal swab/Pre-Proc Stat Sodium Chloride (Normal Saline 0.9%) 1,000 mls @ 150 mls/hr IV CONT DANIELA Last Admin: 05/23/21 13:15 Dose: 150 mls/hr Documented by: RUSS Vital Signs Vital signs: Vital Signs - 8 hr 05/23/21 11:19 05/23/21 11:29 05/23/21 11:30 Temperature 97.7 F Pulse Rate 61 51 L Respiratory Rate 12 27 H Blood Pressure 117/65 125/60 Pulse Oximetry 97 98 98 05/23/21 12:00 05/23/21 12:30 05/23/21 12:44 Temperature Pulse Rate 48 L 49 L 60 Respiratory Rate 15 19 Blood Pressure 132/65 132/67 Pulse Oximetry 96 98 99 05/23/21 12:45 05/23/21 12:58 05/23/21 13:00 Temperature Pulse Rate 57 L 52 L 51 L Respiratory Rate 15 23 18 Blood Pressure 149/71 H 149/66 H 142/66 H Pulse Oximetry 100 100 100 05/23/21 13:30 05/23/21 14:00 05/23/21 14:30 Temperature Pulse Rate 50 L 58 L 56 L Respiratory Rate 15 20 22 Blood Pressure 139/65 141/65 H 139/66 Pulse Oximetry 98 98 98 05/23/21 15:00 05/23/21 15:30 05/23/21 16:00 Temperature Pulse Rate 54 L 59 L 57 L Respiratory Rate 16 21 16 Blood Pressure 145/70 H 137/68 136/70 Pulse Oximetry 96 95 94 MDM - Chest Pain Lab Data Result diagrams: 05/23/21 11:36 05/23/21 11:36 Labs: Lab Results 05/23/21 05/23/21 05/23/21 Range/Units 11:36 11:36 11:36 WBC (4.5-11.0) X10^3/uL RBC (4.0-5.2) X10^6/uL Hgb (12.0-16.0) g/dL Hct (36-46) % MCV (80-100) fL MCH (26-34) PG MCHC (30-36) % RDW (11.6-14.8) % Plt Count (150-400) X10^3/uL Neut % (Auto) (50-75) % Lymph % (Auto) (25-40) % [place] % (Auto) (3-14) % Eos % (Auto) (2-4) % Baso % (Auto) (0-2) % Neut # (Auto) (7053-6511) /uL Lymph # (Auto) (6492-8003) /uL [place] # (Auto) (0-900) /uL Eos # (Auto) (0-450) /uL Baso # (Auto) (0-100) /uL ESR 8 (0-20) MM/HR D-Dimer 224 (<230) ng/mL Sodium (137-145) mmol/L Potassium (3.4-5.1) mmol/L Chloride (98-107) mmol/L Carbon Dioxide (22-32) mmol/L BUN (7-17) mg/dL Creatinine (0.52-1.04) mg/dL Estimated GFR (>60) mL/min BUN/Creatinine Ratio (6-22) Glucose (80-110) mg/dL Calcium (8.4-10.2) mg/dL Total Bilirubin (0.2-1.3) mg/dL AST (14-36) IU/L ALT (<35) IU/L Alkaline Phosphatase (38-126) U/L Total Creatine Kinase (30-135) U/L CK-MB (CK-2) CK-MB (CK-2) Rel Index Troponin I (0.01-0.034) ng/mL C-Reactive Protein < 0.5 (<1.0) mg/dL NT-Pro-B Natriuret Pep 555 H (<450) pg/mL Total Protein (6.3-8.2) g/dL Albumin (3.5-5.0) g/dL Globulin (1.7-4.1) g/dL Albumin/Globulin Ratio (1.0-2.8) Lipase (23-300) U/L Procalcitonin 0.04 (<0.5) ng/mL Digoxin (0.8-2.0) ng/mL SARS-CoV-2 (PCR) (Negative) 05/23/21 05/23/21 05/23/21 Range/Units 11:36 11:36 11:36 WBC 8.3 (4.5-11.0) X10^3/uL RBC 4.74 (4.0-5.2) X10^6/uL Hgb 13.3 (12.0-16.0) g/dL Hct 39.1 (36-46) % MCV 82.6 (80-100) fL MCH 28.0 (26-34) PG MCHC 33.9 (30-36) % RDW 15.0 H (11.6-14.8) % Plt Count 185 (150-400) X10^3/uL Neut % (Auto) 61.6 (50-75) % Lymph % (Auto) 28.5 (25-40) % [place] % (Auto) 7.7 (3-14) % Eos % (Auto) 1.3 L (2-4) % Baso % (Auto) 0.9 (0-2) % Neut # (Auto) 5100 (6916-3872) /uL Lymph # (Auto) 2400 (5084-7632) /uL [place] # (Auto) 600 (0-900) /uL Eos # (Auto) 100 (0-450) /uL Baso # (Auto) 100 (0-100) /uL ESR (0-20) MM/HR D-Dimer (<230) ng/mL Sodium 139 (137-145) mmol/L Potassium 4.6 (3.4-5.1) mmol/L Chloride 108 H (98-107) mmol/L Carbon Dioxide 26 (22-32) mmol/L BUN 19 H (7-17) mg/dL Creatinine 0.85 (0.52-1.04) mg/dL Estimated GFR > 60.0 (>60) mL/min BUN/Creatinine Ratio 22.4 H (6-22) Glucose 121 H (80-110) mg/dL Calcium 9.8 (8.4-10.2) mg/dL Total Bilirubin 0.5 (0.2-1.3) mg/dL AST 24 (14-36) IU/L ALT 12 (<35) IU/L Alkaline Phosphatase 59 (38-126) U/L Total Creatine Kinase 63 (30-135) U/L CK-MB (CK-2) TNP CK-MB (CK-2) Rel Index TNP Troponin I < 0.012 (0.01-0.034) ng/mL C-Reactive Protein (<1.0) mg/dL NT-Pro-B Natriuret Pep (<450) pg/mL Total Protein 7.2 (6.3-8.2) g/dL Albumin 4.5 (3.5-5.0) g/dL Globulin 2.7 (1.7-4.1) g/dL Albumin/Globulin Ratio 1.7 (1.0-2.8) Lipase 65 (23-300) U/L Procalcitonin (<0.5) ng/mL Digoxin < 0.4 L (0.8-2.0) ng/mL SARS-CoV-2 (PCR) (Negative) 05/23/21 05/23/21 Range/Units 14:25 15:23 WBC (4.5-11.0) X10^3/uL RBC (4.0-5.2) X10^6/uL Hgb (12.0-16.0) g/dL Hct (36-46) % MCV (80-100) fL MCH (26-34) PG MCHC (30-36) % RDW (11.6-14.8) % Plt Count (150-400) X10^3/uL Neut % (Auto) (50-75) % Lymph % (Auto) (25-40) % [place] % (Auto) (3-14) % Eos % (Auto) (2-4) % Baso % (Auto) (0-2) % Neut # (Auto) (6430-8937) /uL Lymph # (Auto) (0766-0650) /uL [place] # (Auto) (0-900) /uL Eos # (Auto) (0-450) /uL Baso # (Auto) (0-100) /uL ESR (0-20) MM/HR D-Dimer (<230) ng/mL Sodium (137-145) mmol/L Potassium (3.4-5.1) mmol/L Chloride (98-107) mmol/L Carbon Dioxide (22-32) mmol/L BUN (7-17) mg/dL Creatinine (0.52-1.04) mg/dL Estimated GFR (>60) mL/min BUN/Creatinine Ratio (6-22) Glucose (80-110) mg/dL Calcium (8.4-10.2) mg/dL Total Bilirubin (0.2-1.3) mg/dL AST (14-36) IU/L ALT (<35) IU/L Alkaline Phosphatase (38-126) U/L Total Creatine Kinase (30-135) U/L CK-MB (CK-2) CK-MB (CK-2) Rel Index Troponin I < 0.012 (0.01-0.034) ng/mL C-Reactive Protein (<1.0) mg/dL NT-Pro-B Natriuret Pep (<450) pg/mL Total Protein (6.3-8.2) g/dL Albumin (3.5-5.0) g/dL Globulin (1.7-4.1) g/dL Albumin/Globulin Ratio (1.0-2.8) Lipase (23-300) U/L Procalcitonin (<0.5) ng/mL Digoxin (0.8-2.0) ng/mL SARS-CoV-2 (PCR) Negative (Negative) Urine Dip Bedside Urine Glucose Negative Bedside Urine Bilirubin - Negative Bedside Urine Ketone - Negative Urine Specific [place] 1.015 Bedside Urine Occult Blood - Negative Bedside Urine pH 6.0 Bedside Urine Protein - Negative Bedside Urine Urobilinogen - Negative Bedside Urine Nitrite - Negative Bedside Urine Leukocytes - Negative Esterase Imaging Data Chest x-ray: Radiologist's Impression: MDM Narrative Medical decision making narrative: Multiple causes of chest pain considered including HI, PE, pneumothorax, pneumonia, aortic dissection, and pleurisy. Patient reports no radiation, no diaphoresis, no provocation with exertion, and no vomiting. Patient has nonischemic EKGs, troponins by 3 hours are unremarkable. Also considered pulmonary embolism and COVID, Katelyn has a reassuring story, labs and exam. She has been given return precautions and questions have been answered to her apparent satisfaction Discharge Plan Departure Patient Disposition: Home Clinical Impression: Atypical chest pain Instructions: DI for Atypical Chest Pain Activity Restrictions/Additional Instructions: *You have been diagnosed with [atypical chest pain, there is no evidence of a heart attack, blood clot in your COVID is negative *What to do: *Please continue to take your regular medications as directed. [ ] New medication prescriptions sent to your pharmacy: [ ] [ ] New medication written as a paper prescription [ x] No new medications given *Please follow up with your primary care provider in 2-3 days, call for an appointment. Let them know you were seen in the Emergency Department and that we ask that you be seen in follow up. We will electronically transmit a record of today's note if your PCP is in our system *If you do not have a primary care provider please contact the [facility] Resource line at [phone]. They will ask some questions about your medical history and help get you set up with a doctor in the community. *Return to Emergency Department if you should have any new, worsening or concerning symptoms, such as [fever greater than 101 F, shaking chills, worsening pain, persistent vomiting or other bothersome symptoms] Prescriptions: No Action estradiol 0.01 % (0.1 mg/gram) cream See Rx Instructions .ROUTE .COMPLEX Qty: 42.5 2RF Dose Instruction: insert 0.5 gram vaginally two times a week Rx Instructions: insert 0.5 gram vaginally two times a week nitrofurantoin macrocrystal [Macrodantin] 50 mg capsule 50 mg PO BEDTIME Qty: 30 6RF Rx Instructions: must administer with a meal/food nitroglycerin 0.4 mg tablet, sublingual 0.4 mg sublingual PRN PRN (Reason: Chest Pain) 0RF Rx Instructions: PLACE 1 T UNT Q 5 MIN PRF CHEST PAIN FOR UP TO 14 DOSES lisinopril 2.5 mg tablet 1.25 mg PO DAILY 0RF metoprolol tartrate 25 mg tablet 25 mg PO DAILY 0RF prasugrel 10 mg tablet 10 mg PO DAILY 0RF Referrals: Melly Bah MD [Primary Care Provider] -
[2021-05-23 11:40] LABS: Add Manual Diff / Slide Review NO; Basophils Absolute Auto 100 /uL (0-100); Basophils Percent Auto 0.9 % (0-2); Eosinophils Absolute Auto 100 /uL (0-450); Eosinophils Percent Auto 1.3 % (2-4); Hematocrit 39.1 % (36-46); Hemoglobin 13.3 g/dL (12.0-16.0); Lymphocytes Absolute Auto 2400 /uL (1100-4500); Lymphocytes Percent Auto 28.5 % (25-40); Mean Corpuscular HGB Conc 33.9 % (30-36); Mean Corpuscular Volume 82.6 fL (80-100); Monocytes Absolute Auto 600 /uL (0-900); Monocytes Percent Auto 7.7 % (3-14); Neutrophils Absolute Auto 5100 /uL (1500-7000); Neutrophils Percent Auto 61.6 % (50-75); Platelet Count 185 X10^3/uL (150-400); Red Blood Cell Count 4.74 X10^6/uL (4.0-5.2); White Blood Cell Count 8.3 X10^3/uL (4.5-11.0)
[2021-05-23 11:51] LABS: D Dimer 224 ng/mL (<230)
[2021-05-23 11:57] LABS: Alanine Aminotransferase 12 IU/L (<35); Albumin 4.5 g/dL (3.5-5.0); Albumin Globulin Ratio 1.7 (1.0-2.8); Alkaline Phosphatase 59 U/L (38-126); Aspartate Aminotransferase 24 IU/L (14-36); BUN Creatinine Ratio 22.4 (6-22); Bilirubin Total 0.5 mg/dL (0.2-1.3); Blood Urea Nitrogen 19 mg/dL (7-17); Calcium 9.8 mg/dL (8.4-10.2); Carbon Dioxide 26 mmol/L (22-32); Chloride 108 mmol/L (98-107); Creatine Kinase 63 U/L (30-135); Estimated Glomerular Filt Rate > 60.0 mL/min (>60); Globulin 2.7 g/dL (1.7-4.1); Glucose 121 mg/dL (80-110); HEMOLYSIS < 15 (0-50); Lipase 65 U/L (23-300); Potassium 4.6 mmol/L (3.4-5.1); Sodium 139 mmol/L (137-145); Total Protein 7.2 g/dL (6.3-8.2)
[2021-05-23 12:01] LABS: C-Reactive Protein Quant < 0.5 mg/dL (<1.0); Erythrocyte Sedimentation Rate 8 MM/HR (0-20)
[2021-05-23 12:06] LABS: Digoxin < 0.4 ng/mL (0.8-2.0); NT-proBNP (BNP-Adult 18+) 555 pg/mL (<450)
[2021-05-23 12:09] LABS: Troponin I < 0.012 ng/mL (0.01-0.034)
[2021-05-23 12:13] LABS: Procalcitonin 0.04 ng/mL (<0.5)
[2021-05-23] MEDS: SODIUM CHLORIDE 0.9% 1,000 ML 150 ML IV (13:15)
--- NOTE | 2021-05-23 13:21 | PC.NURSE ---
Pt called reporting left lower chest pain radiating to left side, similar to earlier episodes but 6/10 and lasted a second. EKG done per verbal order from JIM Maria. Pt now reporting no pain.
--- NOTE | 2021-05-23 14:30 | PC.NURSE ---
Pt denies chest pain at this time. Reports chest pain similar to today intermittently since January that radiates to her back and always causes her to cough, but only one episode every few days or so, feels cough is looser today.
[2021-05-23 14:56] LABS: Troponin I < 0.012 ng/mL (0.01-0.034)
[2021-05-23 15:43] LABS: COVID19 -Nasal RAPID Negative (Negative)
== END 2021-05-23 16:20 | disposition home or self-care (01) ==
PROVIDERS: Emergency Provider Emergency Medicine; PCP Internal Medicine
DX: R07.89 Other chest pain (principal); Z20.822 Contact with and (suspected) exposure to COVID-19; I25.2 Old myocardial infarction; Z88.6 Allergy status to analgesic agent
CPT/HCPCS: 36415; 71045; 80053; 80162; 81003; 82550; 83690; 83880; 84145; 84484; 85025; 85379; 85651; 86140; 87635; 93005; 93010; 99284; C9803

== ENCOUNTER 2021-09-20 21:00 | Emergency (ER) | payer OTHER, SELFPAY ==
[2021-09-20 21:25] VITALS: BP 133/72; PULSE 75; RESP 17; TEMP 36.4; O2SAT 98; BMI 24.7
== END 2021-09-20 22:15 | disposition left against medical advice (07) ==
LOC: ED 21:53
PROVIDERS: Emergency Provider Emergency Medicine; PCP Internal Medicine
DX: S51.851A Open bite of right forearm, initial encounter (principal)
CPT/HCPCS: 99281

== ENCOUNTER 2021-10-11 08:23 | Emergency (ER) | payer OTHER, SELFPAY ==
[2021-10-11] VITALS (11 sets, daily range): BP systolic 117–131; BP diastolic 58–73; PULSE 59–77; RESP 18–22; TEMP 36.1; O2SAT 95–99
--- NOTE | 2021-10-11 08:26 | ED.CHESTPAIN ---
HPI - Chest Pain General Chief Complaint: Shortness of Breath/Dyspnea Stated Complaint: chest pain sob Time Seen by Provider: 10/11/21 08:25 History of Present Illness HPI narrative: 76F former smoker with extensive cardiac history including STEMI with multiple stents presents by EMS with a chief complaint of episodes of chest pain off and on for the past 8 months. She states is a bit more intense today and she took a nitro and it did not help. She states her pain is sharp and stabbing and reproducible with deep breath and motion of her upper body but denies any exertional component. She is not dizzy nor weak or lightheaded. She denies nausea, vomiting or unexplained diaphoresis. She states she has had some upper respiratory complaints such as runny nose, nasal congestion, sneezing and cough over the past few weeks but denies any fever, chills or exposure to COVID. She does state that on occasion her sputum is blood tinged. She denies any history of blood clot but does have a remote history of squamous cell cancer. She denies any lower extremity pain, swelling. Related Data Home Medications Medication Instructions Recorded Confirmed lisinopril 2.5 mg tablet 1.25 mg PO DAILY 01/11/19 03/18/21 metoprolol tartrate 25 mg tablet 25 mg PO DAILY 01/11/19 03/18/21 nitroglycerin 0.4 mg sublingual 0.4 mg SUBLINGUAL PRN PRN 01/11/19 03/18/21 tablet prasugrel 10 mg tablet 10 mg PO DAILY 01/11/19 03/18/21 Previous Rx's Medication Instructions Recorded estradiol See Rx Instructions .ROUTE 03/27/20 .COMPLEX #42.5 gram nitrofurantoin macrocrystal 50 mg 50 mg PO BEDTIME #30 cap 02/21/21 capsule (Macrodantin) doxycycline hyclate 100 mg tablet 100 mg PO BID #20 tab 10/11/21 Allergies Allergy/AdvReac Type Severity Reaction Status Date / Time aspirin Allergy Severe Many- Verified 10/11/21 09:18 Worst anaphlaxis NSAIDS (Non-Steroidal Allergy Severe heart Verified 10/11/21 09:18 Anti-Inflamma stopped adenosine [ADENOSINE] Allergy Unknown Verified 10/11/21 09:18 Opioids - Morphine Analogues Allergy Unknown Verified 10/11/21 09:18 [OPIOIDS - MORPHINE ANALOGUES] [id number]-[id number]-UlI Reductase Allergy Unknown Verified 10/11/21 09:18 Inhibitor [[id number] REDUCTASE INHIBITOR] Sulfa (Sulfonamide Allergy Unknown Verified 10/11/21 09:18 Antibiotics) [SULFA (SULFONAMIDE ANTIBIOTICS)] nitrofurantoin AdvReac Verified 10/11/21 09:18 omeprazole AdvReac Verified 10/11/21 09:18 Review of Systems Review of Systems Narrative: GENERAL: Denies chills, fatigue, malaise, fever, sweats. HEENT: Denies sinus pain, ear pain, sore throat, difficulty swallowing, dizziness. RESPIRATORY: See HPI CARDIOVASCULAR: See HPI GASTROINTESTINAL: Denies nausea, vomiting, abdominal pain, diarrhea, constipation, melena. : Denies dysuria, frequency, incontinence, hematuria, urinary retention. MUSCULOSKELETAL: denies weakness, joint pain, or bony pain SKIN: Denies rash, skin lesions, or other NEUROLOGIC: Denies weakness, headache, numbness, change in speech, confusion, seizures, incoordination. PSYCHIATRIC: No concerning psychosocial issues. 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 Well-developed patient, in no obvious distress, resting comfortably HEAD: Atraumatic. Normocephalic. EYES: Pupils equal round and reactive. Extraocular motions intact. No scleral icterus. No injection or drainage. ENT: Nose without bleeding, purulent drainage. Throat without erythema, tonsillar hypertrophy or exudate. Airway patent. NECK: Trachea midline. Non tender CARDIOVASCULAR: Regular rate and rhythm without murmurs, gallops, or rubs. Anterior chest pain on palpation, she reports my palpation reproduces the pain that brought her in. RESPIRATORY: Clear to auscultation. Breath sounds equal bilaterally. No wheezes, rales, or rhonchi. GASTROINTESTINAL: Abdomen soft, non-tender, nondistended. EXTREMITIES: No edema or joint tenderness. BACK: Nontender without deformity or crepitance. No flank tenderness. NEURO: AOx3. SKIN: No rash or erythema of visible areas Initial Vital Signs Initial Vital Signs: Vital Signs Temperature 97.0 F L 10/11/21 08:30 Pulse Rate 60 10/11/21 08:30 Respiratory Rate 22 10/11/21 08:30 Blood Pressure 124/72 10/11/21 08:30 Pulse Oximetry 97 10/11/21 08:30 Course Orders Ordered: ED Orders 10/11/21 11:05 D Dimer Stat Troponin & CK Cardiac Panel Stat Discontinued Medications Albuterol/Ipratropium (Albuterol/Ipratropium 3 Ml Ampul) 3 ml INH NOW ONE Stop: 10/11/21 09:15 Last Admin: 10/11/21 09:26 Dose: 3 ml Documented by: ARASH Sodium Chloride (Normal Saline 0.9%) 1,000 mls @ 150 mls/hr IV CONT DANIELA Last Admin: 10/11/21 13:11 Dose: Not Given Documented by: MOISES Vital Signs Vital signs: Vital Signs - 8 hr 10/11/21 11:30 10/11/21 11:40 10/11/21 12:00 Pulse Rate 77 62 59 L Blood Pressure 125/58 L 131/63 Pulse Oximetry 95 98 97 10/11/21 12:30 10/11/21 12:31 10/11/21 13:00 Pulse Rate 62 61 63 Blood Pressure 117/64 Pulse Oximetry 96 95 95 10/11/21 13:20 Pulse Rate 67 Blood Pressure 128/73 Pulse Oximetry 96 MDM - Chest Pain Lab Data Result diagrams: 10/11/21 08:30 10/11/21 08:30 Labs: Lab Results 0510/11/21 10/11/21 Range/Units 08:30 08:30 08:30 WBC 6.1 (4.5-11.0) X10^3/uL RBC 4.61 (4.0-5.2) X10^6/uL Hgb 12.9 (12.0-16.0) g/dL Hct 37.8 (36-46) % MCV 82.1 (80-100) fL MCH 28.0 (26-34) PG MCHC 34.1 (30-36) % RDW 14.9 H (11.6-14.8) % Plt Count 163 (150-400) X10^3/uL Neut % (Auto) 61.1 (50-75) % Lymph % (Auto) 25.4 (25-40) % [place] % (Auto) 10.1 (3-14) % Eos % (Auto) 2.6 (2-4) % Baso % (Auto) 0.8 (0-2) % Neut # (Auto) 3700 (6769-9951) /uL Lymph # (Auto) 1600 (5720-9360) /uL [place] # (Auto) 600 (0-900) /uL Eos # (Auto) 200 (0-450) /uL Baso # (Auto) 0 (0-100) /uL PT 10.9 (10.1-12.7) SECONDS INR 1.0 (0.9-1.3) D-Dimer < 200 (<230) ng/mL Sodium 141 (137-145) mmol/L Potassium 4.2 (3.4-5.1) mmol/L Chloride 109 H (98-107) mmol/L Carbon Dioxide 27 (22-32) mmol/L BUN 19 H (7-17) mg/dL Creatinine 0.83 (0.52-1.04) mg/dL Estimated GFR > 60 (>60) mL/min BUN/Creatinine Ratio 22.9 H (6-22) Glucose 116 H (80-110) mg/dL Calcium 9.4 (8.4-10.2) mg/dL Total Bilirubin 0.5 (0.2-1.3) mg/dL AST 27 (14-36) IU/L ALT 13 (<35) IU/L Alkaline Phosphatase 62 (38-126) U/L Total Creatine Kinase 123 (30-135) U/L CK-MB (CK-2) 1.30 (<2.37) ng/mL CK-MB (CK-2) Rel Index 1.1 L (1.5-5.0) % Troponin I < 0.012 (0.01-0.034) ng/mL NT-Pro-B Natriuret Pep 442 (<450) pg/mL Total Protein 7.1 (6.3-8.2) g/dL Albumin 4.3 (3.5-5.0) g/dL Globulin 2.8 (1.7-4.1) g/dL Albumin/Globulin Ratio 1.5 (1.0-2.8) Lipase 46 (23-300) U/L Procalcitonin 0.04 (<0.5) ng/mL SARS-CoV-2 (PCR) (Negative) 10/11/21 10/11/21 10/11/21 Range/Units 08:52 11:05 11:05 WBC (4.5-11.0) X10^3/uL RBC (4.0-5.2) X10^6/uL Hgb (12.0-16.0) g/dL Hct (36-46) % MCV (80-100) fL MCH (26-34) PG MCHC (30-36) % RDW (11.6-14.8) % Plt Count (150-400) X10^3/uL Neut % (Auto) (50-75) % Lymph % (Auto) (25-40) % [place] % (Auto) (3-14) % Eos % (Auto) (2-4) % Baso % (Auto) (0-2) % Neut # (Auto) (2757-1882) /uL Lymph # (Auto) (5817-7740) /uL [place] # (Auto) (0-900) /uL Eos # (Auto) (0-450) /uL Baso # (Auto) (0-100) /uL PT (10.1-12.7) SECONDS INR (0.9-1.3) D-Dimer < 200 (<230) ng/mL Sodium (137-145) mmol/L Potassium (3.4-5.1) mmol/L Chloride (98-107) mmol/L Carbon Dioxide (22-32) mmol/L BUN (7-17) mg/dL Creatinine (0.52-1.04) mg/dL Estimated GFR (>60) mL/min BUN/Creatinine Ratio (6-22) Glucose (80-110) mg/dL Calcium (8.4-10.2) mg/dL Total Bilirubin (0.2-1.3) mg/dL AST (14-36) IU/L ALT (<35) IU/L Alkaline Phosphatase (38-126) U/L Total Creatine Kinase 110 (30-135) U/L CK-MB (CK-2) 1.21 (<2.37) ng/mL CK-MB (CK-2) Rel Index 1.1 L (1.5-5.0) % Troponin I < 0.012 (0.01-0.034) ng/mL NT-Pro-B Natriuret Pep (<450) pg/mL Total Protein (6.3-8.2) g/dL Albumin (3.5-5.0) g/dL Globulin (1.7-4.1) g/dL Albumin/Globulin Ratio (1.0-2.8) Lipase (23-300) U/L Procalcitonin (<0.5) ng/mL SARS-CoV-2 (PCR) Negative (Negative) ECG Data Interpretation: EKG is sinus bradycardia with regular rhythm, rate [52 ] and free of any signs of ischemia or ectopy. No ST segmental elevation or depression. No T wave inversions MDM Narrative Medical decision making narrative: Patient with very reassuring history and physical exam, she demonstrates no signs of respiratory distress such as tachypnea, use of accessory muscles or hypoxemia. Imaging is reassuring labs including troponin times to reassuring, D-dimer unremarkable and no indication for advanced imaging. Given her history of smoking, bronchospastic coughing with improvement on bronchodilators and cough productive of sputum occasionally blood tinged elected to treat her for atypical pneumonia. She is given extensive return precautions and questions have been answered to her apparent satisfaction Discharge Plan Departure Patient Disposition: Home Clinical Impression: Atypical pneumonia Instructions: DI for Atypical Pneumonia Activity Restrictions/Additional Instructions: *You have been diagnosed with [atypical pneumonia. As we discussed your history and physical exam as well as labs, imaging and EKGs are very reassuring. There is no evidence of heart attack, blood clot or other significant caused your symptoms. *What to do: *Please continue to take your regular medications as directed. [x ] New medication prescriptions sent to your pharmacy: [ [facility]] [ ] New medication written as a paper prescription [ ] No new medications given *Please follow up with your primary care provider in 2-3 days, call for an appointment. Let them know you were seen in the Emergency Department and that we ask that you be seen in follow up. We will electronically transmit a record of today's note if your PCP is in our system *If you do not have a primary care provider please contact the [facility] Resource line at [phone]. They will ask some questions about your medical history and help get you set up with a doctor in the community. *Return to Emergency Department if you should have any new, worsening or concerning symptoms, such as [fever greater than 101 F, shaking chills, worsening pain, persistent vomiting or other bothersome symptoms] Prescriptions: New doxycycline hyclate 100 mg tablet 100 mg PO BID Qty: 20 0RF No Action estradiol 0.01 % (0.1 mg/gram) cream See Rx Instructions .ROUTE .COMPLEX Qty: 42.5 2RF Dose Instruction: insert 0.5 gram vaginally two times a week Rx Instructions: insert 0.5 gram vaginally two times a week nitrofurantoin macrocrystal [Macrodantin] 50 mg capsule 50 mg PO BEDTIME Qty: 30 6RF Rx Instructions: must administer with a meal/food nitroglycerin 0.4 mg tablet, sublingual 0.4 mg sublingual PRN PRN (Reason: Chest Pain) 0RF Rx Instructions: PLACE 1 T UNT Q 5 MIN PRF CHEST PAIN FOR UP TO 14 DOSES lisinopril 2.5 mg tablet 1.25 mg PO DAILY 0RF metoprolol tartrate 25 mg tablet 25 mg PO DAILY 0RF prasugrel 10 mg tablet 10 mg PO DAILY 0RF Referrals: Melly Bah MD [Primary Care Provider] -
--- NOTE | 2021-10-11 08:27 | DI.RAD.S_ITS ---
PROCEDURE: XR CHEST 2V INDICATIONS: chest pain, cough TECHNIQUE: 2 views of the chest were acquired. COMPARISON: [facility], CT, CT LOW DOSE LUNG CA SCREENING, 12/23/2018, 12:36. [facility], CR, XR CHEST 1V, 04/19/2019, 11:45. [facility], CT, CT CHEST WITH CONTRAST, 08/26/2021, 13:11. [facility], CR, XR CHEST 1V, 05/23/2021, 11:36. FINDINGS: Surgical changes and devices: None. Lungs and pleura: Lungs are clear. There are small calcified nodules in right lower lobe, likely sequelae remote granulomatous infections. There are nodular densities seen on the lateral view only. No pleural effusions or pneumothorax. Mediastinum: Mediastinal contours are normal. Heart size is normal. Bones and chest wall: No suspicious bony abnormalities. Soft tissues appear unremarkable. IMPRESSION: 1. No acute cardiopulmonary disease. 2. Nodular densities are seen on the lateral view only, probably old granulomas or artifact. Recommend nonurgent follow-up chest CT if clinically indicated. Dictated by: Jenny Chicas M.D. on 10/11/2021 at 9:17 Approved by: Jenny Chicas M.D. on 10/11/2021 at 9:21
[2021-10-11 09:11] LABS: Add Manual Diff / Slide Review NO; Basophils Absolute Auto 0 /uL (0-100); Basophils Percent Auto 0.8 % (0-2); Eosinophils Absolute Auto 200 /uL (0-450); Eosinophils Percent Auto 2.6 % (2-4); Hematocrit 37.8 % (36-46); Hemoglobin 12.9 g/dL (12.0-16.0); Lymphocytes Absolute Auto 1600 /uL (1100-4500); Lymphocytes Percent Auto 25.4 % (25-40); Mean Corpuscular HGB Conc 34.1 % (30-36); Mean Corpuscular Volume 82.1 fL (80-100); Monocytes Absolute Auto 600 /uL (0-900); Monocytes Percent Auto 10.1 % (3-14); Neutrophils Absolute Auto 3700 /uL (1500-7000); Neutrophils Percent Auto 61.1 % (50-75); Platelet Count 163 X10^3/uL (150-400); Red Blood Cell Count 4.61 X10^6/uL (4.0-5.2); Red Cell Distribution Width 14.9 % (11.6-14.8); White Blood Cell Count 6.1 X10^3/uL (4.5-11.0)
[2021-10-11 09:12] LABS: Alanine Aminotransferase 13 IU/L (<35); Albumin 4.3 g/dL (3.5-5.0); Albumin Globulin Ratio 1.5 (1.0-2.8); Alkaline Phosphatase 62 U/L (38-126); Aspartate Aminotransferase 27 IU/L (14-36); BUN Creatinine Ratio 22.9 (6-22); Bilirubin Total 0.5 mg/dL (0.2-1.3); Blood Urea Nitrogen 19 mg/dL (7-17); Calcium 9.4 mg/dL (8.4-10.2); Carbon Dioxide 27 mmol/L (22-32); Chloride 109 mmol/L (98-107); Creatine Kinase 123 U/L (30-135); Estimated Glomerular Filt Rate > 60 mL/min (>60); Globulin 2.8 g/dL (1.7-4.1); Glucose 116 mg/dL (80-110); HEMOLYSIS < 15 (0-50); Lipase 46 U/L (23-300); Potassium 4.2 mmol/L (3.4-5.1); Sodium 141 mmol/L (137-145); Total Protein 7.1 g/dL (6.3-8.2)
[2021-10-11 09:15] LABS: Prothrombin Time 10.9 SECONDS (10.1-12.7)
[2021-10-11 09:25] LABS: NT-proBNP (BNP-Adult 18+) 442 pg/mL (<450); Troponin I < 0.012 ng/mL (0.01-0.034)
[2021-10-11] MEDS: ALBUTEROL/IPRATROPIUM 3 ML AMPUL INH (09:26)
[2021-10-11 09:27] LABS: CKMB % Relative Index 1.1 % (1.5-5.0)
[2021-10-11 09:28] LABS: D Dimer < 200 ng/mL (<230)
[2021-10-11 09:29] LABS: COVID19 -Nasal RAPID Negative (Negative)
[2021-10-11 09:29] LABS: Procalcitonin 0.04 ng/mL (<0.5)
[2021-10-11 11:27] LABS: Creatine Kinase 110 U/L (30-135)
[2021-10-11 11:35] LABS: D Dimer < 200 ng/mL (<230)
--- NOTE | 2021-10-11 11:35 | PC.NURSE ---
Pt removed cardiac leads, education provided on indication. Pt observed to be between sitting on chair, ambulating around room, then on stretcher. Ambulated to/from bathroom, stopped half way and held onto nurse station, states it was difficult. SPO2 94% upon return to room.
[2021-10-11 11:40] LABS: Troponin I < 0.012 ng/mL (0.01-0.034)
[2021-10-11 11:42] LABS: CKMB % Relative Index 1.1 % (1.5-5.0); Creatine Kinase MB 1.21 ng/mL (<2.37)
--- NOTE | 2021-10-11 12:47 | PC.NURSE ---
Pt standing in room wrapped in BP and Pulse Ox cord, pt educated on fall risk r/t monitor wires, re-educated on indication for call light use before ambulating around. Pt removed from monitor while she continues to stand.
--- NOTE | 2021-10-11 13:04 | PC.NURSE ---
Family point of contact is Esther Landrum (Daughter) [phone] no answer at number left a message to call us back for an update
--- NOTE | 2021-10-11 13:17 | PC.NURSE ---
Pt jad called and states he (son) will be here to pick pt up between [id number].
== END 2021-10-11 13:32 | disposition home or self-care (01) ==
PROVIDERS: Emergency Provider Emergency Medicine; PCP Internal Medicine
DX: R07.9 Chest pain, unspecified (principal); J18.9 Pneumonia, unspecified organism; Z20.822 Contact with and (suspected) exposure to COVID-19; Z87.891 Personal history of nicotine dependence
CPT/HCPCS: 36415; 71046; 80053; 82550; 82553; 83690; 83880; 84145; 84484; 85025; 85379; 85610; 87635; 93005; 93010; 94640; 99284; C9803

== ENCOUNTER 2022-03-30 14:51 | Emergency (ER) | payer SELFPAY ==
[2022-03-30 15:12] VITALS: BP 138/69; PULSE 66; RESP 18; TEMP 36.6; O2SAT 99
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
--- NOTE | 2022-03-30 15:26 | DI.RAD.S_ITS ---
PROCEDURE: XR FOOT LT MIN 3V INDICATIONS: rolled left ankle TECHNIQUE: 3 views of the foot were acquired. COMPARISON: None. FINDINGS: Bones: No fractures or dislocations. No suspicious bony lesions. Soft tissues: No tibiotalar joint effusion. Achilles tendon appears normal. IMPRESSION: No acute abnormality of the left foot. Dictated by: Gibran Deras M.D. on 03/30/2022 at 16:41 Approved by: Gibran Deras M.D. on 03/30/2022 at 16:43
--- NOTE | 2022-03-30 15:57 | ED.LOWEXIN ---
HPI - Extremity Injury (Lower) General Chief Complaint: Extremity Injury, Lower Stated Complaint: Rolled left ankle Time Seen by Provider: 03/30/22 15:56 Source: patient Mode of arrival: Wheelchair Limitations: no limitations History of Present Illness HPI Narrative: This is a 76-year-old female with history of cardiac history including STEMI with multiple stents who presents for left foot pain. Patient states she was sitting for prolonged. When she got up she had some pins and needles and when she stepped she rolled her foot. She states she did twice yesterday within a short period of time and has pain with weight-bearing over the foot. Patient states she still has a little bit of tingling, she denies any new weakness in her extremity. She denies any back pain. She states she did not fall or have any other injuries. She defers anything for pain and states she does not tolerate it well. She is supposed to fly to [place] in the upcoming week and is inquiring about ways to help her ambulate. Related Data Home Medications Medication Instructions Recorded Confirmed lisinopril 2.5 mg tablet 1.25 mg PO DAILY 01/11/19 03/18/21 metoprolol tartrate 25 mg tablet 25 mg PO DAILY 01/11/19 03/18/21 nitroglycerin 0.4 mg sublingual 0.4 mg sublingual PRN PRN Chest 01/11/19 03/18/21 tablet Pain prasugrel 10 mg tablet 10 mg PO DAILY 01/11/19 03/18/21 Previous Rx's Medication Instructions Recorded estradiol 0.01% (0.1 mg/gram) See Rx Instructions .Route 03/27/20 vaginal cream .COMPLEX #42.5 grams nitrofurantoin macrocrystal 50 mg 50 mg PO BEDTIME #30 caps 02/21/21 capsule (Macrodantin) doxycycline hyclate 100 mg tablet 100 mg PO BID #20 tabs 10/11/21 Allergies Allergy/AdvReac Type Severity Reaction Status Date / Time aspirin Allergy Severe Many- Verified 10/11/21 09:18 Worst anaphlaxis NSAIDS (Non-Steroidal Allergy Severe heart Verified 10/11/21 09:18 Anti-Inflamma stopped adenosine [ADENOSINE] Allergy Unknown Verified 10/11/21 09:18 Opioids - Morphine Analogues Allergy Unknown Verified 10/11/21 09:18 [OPIOIDS - MORPHINE ANALOGUES] Bwyhinw-CMD-IsV Reductase Allergy Unknown Verified 10/11/21 09:18 Inhibitor [NQYGKYW-WZF-WYD REDUCTASE INHIBITOR] Sulfa (Sulfonamide Allergy Unknown Verified 10/11/21 09:18 Antibiotics) [SULFA (SULFONAMIDE ANTIBIOTICS)] nitrofurantoin AdvReac Verified 10/11/21 09:18 omeprazole AdvReac Verified 10/11/21 09:18 Review of Systems Review of Systems ROS Unobtainable: All systems reviewed & are unremarkable except as noted in HPI and below Patient History Medical History Acute coronary syndrome Anxiety disorder due to medical condition Chest pain Coronary artery disease History of porphyria Hx of coronary stenosis Hx of myocardial infarction (01/30/19) Kidney stone (09/22/19) Mixed hyperlipidemia (10/05/16) Pelvic relaxation Primary localized osteoarthrosis, pelvic region and thigh (06/13/09) Renal cyst, left Vaginal vault prolapse Surgical History 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) H/O coronary angioplasty Hx of bilateral hip replacements Hx of cholecystectomy Hx of lithotripsy Social History Smoking Status: Former smoker Smoking Status: Former smoker tobacco type: cigarettes alcohol intake frequency: 0-2 drinks per day Substance Use Type: does not use Exam Narrative Exam Narrative: GENERAL: Alert and oriented x three, female in mild distress. HEENT: Head normocephalic, atraumatic, EOMI, pupils reactive, face symmetric, moist mucous membranes NECK: Supple, full range of motion CARDIOVASCULAR: Regular rate and rhythm without murmurs, rubs or gallops. RESPIRATORY: Breath sounds equal bilaterally, no wheezes rales or rhonchi. ABDOMEN: Soft, nontender. Normoactive bowel sounds all 4 quadrants. No guarding or rebound, rigidity, no mass : No CVA tenderness EXTREMITIES: Normal range of motion, no clubbing or edema. Neurovascularly intact. Patient has tenderness over the 4th metatarsal of her left foot. She has some ecchymosis. No significant swelling. No lateral or medial malleoli tenderness. Patient has normal sensation to light touch. Cap refill less than 2 seconds in all 5 toes. Normal movement in her toes. NEUROLOGICAL: Cranial nerves II through XII grossly intact. Moving all extremities SKIN: Warm, dry, no petechiae, no rashes or lesions. Initial Vital Signs Initial Vital Signs: Vital Signs Temperature 97.8 F 03/30/22 15:12 Pulse Rate 66 03/30/22 15:12 Respiratory Rate 18 03/30/22 15:12 Blood Pressure 138/69 03/30/22 15:12 Pulse Oximetry 99 03/30/22 15:12 Oxygen Delivery Method 03/30/22 15:12 Course Orders Ordered: ED Orders 03/30/22 15:26 XR foot LT min 3V Stat Vital Signs Vital signs: Vital Signs - 8 hr 03/30/22 15:12 Temperature 97.8 F Pulse Rate 66 Respiratory Rate 18 Blood Pressure 138/69 Pulse Oximetry 99 Oxygen Delivery Method Room Air MDM - Extremity Injury (Lower) Imaging Data Extremity x-ray #1: Radiologist's Impression: [address] [address] XRay Report Signed Patient: Soren Landrum MR#: [id number] : 1945 Acct:[id number] Age/Sex: 76 / F Date of Service: 03/30/22 Loc: ED Accession Number: [id number] ?? Procedure: XR foot LT min 3V Ordering Provider: Myrtle Aguiar D.O. PROCEDURE:? XR FOOT LT MIN 3V ? INDICATIONS:? rolled left ankle ? TECHNIQUE:? 3 views of the foot were acquired.? ? COMPARISON:? None. ? FINDINGS:? ? Bones:? No fractures or dislocations.? No suspicious bony lesions.? ? Soft tissues:? No tibiotalar joint effusion.? Achilles tendon appears normal.? ? IMPRESSION:? No acute abnormality of the left foot. ? ? Dictated by: Gibran Deras M.D. on 03/30/2022 at 16:41 ? ? Approved by: Gibran Deras M.D. on 03/30/2022 at 16:43?? MDM Narrative Medical decision making narrative: This is a 76-year-old female who rolled her foot, she is nontender in the ankle but has have tenderness over the 4th metatarsal, x-ray shows Plan for walking boot, patient does have a walker at home. She defers anything for pain. Discharge Plan Departure Patient Disposition: Home Clinical Impression: Foot pain, left Instructions: DI for Foot Pain Activity Restrictions/Additional Instructions: Follow-up with primary care in the next 7-10 days for recheck if your symptoms are not improving. You may weightbear as tolerated I would recommend using a walker at home or for short distances. You can take Tylenol up 1000 mg every 6 hours as needed for pain if you tolerate this medication. Splint Care: Keep splint clean and dry. Elevated affected body part to decrease swelling. OK to use ice pack on the affected body part. Use for 15-20 minutes each time, for 5-6x per day. If you develop worsening pain, numbness, tingling, discoloration of the affected body part, loosen the splint by loosening the HELIO wrap, and either see your doctor for an urgent re-assessment, or return to the Emergency Department. Return to the Emergency Department for any new or worsening symptoms. Prescriptions: No Action estradiol 0.01 % (0.1 mg/gram) cream See Rx Instructions .ROUTE .COMPLEX Qty: 42.5 2RF Dose Instruction: insert 0.5 gram vaginally two times a week Rx Instructions: insert 0.5 gram vaginally two times a week nitrofurantoin macrocrystal [Macrodantin] 50 mg capsule 50 mg PO BEDTIME Qty: 30 6RF Rx Instructions: must administer with a meal/food nitroglycerin 0.4 mg tablet, sublingual 0.4 mg sublingual PRN PRN (Reason: Chest Pain) Rx Instructions: PLACE 1 T UNT Q 5 MIN PRF CHEST PAIN FOR UP TO 14 DOSES lisinopril 2.5 mg tablet 1.25 mg PO DAILY metoprolol tartrate 25 mg tablet 25 mg PO DAILY prasugrel 10 mg tablet 10 mg PO DAILY doxycycline hyclate 100 mg tablet 100 mg PO BID Qty: 20 0RF Referrals: Melly Bah MD [Primary Care Provider] -
[2022-03-30 17:37] VITALS: BP 120/72; PULSE 62; RESP 18; O2SAT 99
== END 2022-03-30 17:43 | disposition home or self-care (01) ==
PROVIDERS: Emergency Provider Emergency Medicine; PCP Internal Medicine
DX: M79.672 Pain in left foot (principal); X50.1XXA Overexertion from prolonged static or awkward postures, initial encounter
CPT/HCPCS: 73630; 99283

== ENCOUNTER → 2022-05-07 10:47 | Outpatient (CLI) | payer OTHER, SELFPAY ==
--- NOTE | 2022-05-07 | DI.MG.S_ITS ---
BILATERAL DIGITAL SCREENING MAMMOGRAM 3D/2D WITH CAD: 05/07/2022 CLINICAL: Routine screening. Family history of breast cancer. Comparison is made to exams dated: 04/03/2021 mammogram, 03/05/2020 mammogram, and 10/14/2018 mammogram - [facility]. There are scattered areas of fibroglandular density in both breasts (category b / 25%-50% glandular tissue). Current study was also evaluated with a Computer Aided Detection (CAD) system. There is a biopsy clip in the left breast. No significant masses, calcifications, or other findings are seen in either breast. There has been no significant interval change. IMPRESSION: NEGATIVE There is no mammographic evidence of malignancy. A 1 year screening mammogram is recommended. Based on the Tyrer Cuzick model (a risk assessment model) the patient's lifetime risk is 3.6% and her 10 year risk is 0.0%. According to the ACR, ACS, and NCCN guidelines, an annual breast MRI exam along with mammogram is recommended if the patient's lifetime risk is 20% or greater. This exam was interpreted at Station ID: [id number]. NOTE: For mammograms, a report in lay terms will be sent to the patient. Approximately 15% of breast malignancies will not be visualized mammographically. In the management of a palpable breast mass, a negative mammogram must not discourage biopsy of a clinically suspicious lesion. Electronically Signed By: Nayan miguel/deepak:05/07/2022 17:29:44 letter sent: Normal Exam ACR BI-RADS Category 1: Negative [id number]
== END ==
PROVIDERS: PCP Internal Medicine; Referring Provider Internal Medicine; Visit Provider Internal Medicine
DX: Z12.31 Encounter for screening mammogram for malignant neoplasm of breast (principal); Z80.3 Family history of malignant neoplasm of breast
CPT/HCPCS: 77063; 77067

== ENCOUNTER → 2023-06-22 13:01 | Outpatient (CLI) | payer OTHER, SELFPAY ==
--- NOTE | 2023-06-22 | DI.MG.S_ITS ---
BILATERAL DIGITAL SCREENING MAMMOGRAM 3D/2D WITH CAD: 06/22/2023 CLINICAL: Routine screening. Family history of breast cancer. Comparison is made to exams dated: 05/07/2022 mammogram, 04/03/2021 mammogram, and 03/05/2020 mammogram - [facility]. There are scattered areas of fibroglandular density in both breasts (category b / 25%-50% glandular tissue). Current study was also evaluated with a Computer Aided Detection (CAD) system. There is a biopsy clip in the left breast. No significant masses, calcifications, or other findings are seen in either breast. There has been no significant interval change. IMPRESSION: NEGATIVE There is no mammographic evidence of malignancy. A 1 year screening mammogram is recommended. Based on the Tyrer Cuzick model (a risk assessment model) the patient's lifetime risk is 3.2% and her 10 year risk is 0.0%. According to the ACR, ACS, and NCCN guidelines, an annual breast MRI exam along with mammogram is recommended if the patient's lifetime risk is 20% or greater. This exam was interpreted at Station ID: [id number]. NOTE: For mammograms, a report in lay terms will be sent to the patient. Approximately 15% of breast malignancies will not be visualized mammographically. In the management of a palpable breast mass, a negative mammogram must not discourage biopsy of a clinically suspicious lesion. Electronically Signed By: Nayan miguel/[email or web address]:06/22/2023 17:35:30 letter sent: Normal Exam ACR BI-RADS Category 1: Negative [id number]
== END ==
PROVIDERS: PCP Internal Medicine; Referring Provider Internal Medicine; Visit Provider Internal Medicine
DX: Z12.31 Encounter for screening mammogram for malignant neoplasm of breast (principal); Z80.3 Family history of malignant neoplasm of breast; R92.323 Mammographic fibroglandular density, bilateral breasts
CPT/HCPCS: 77063; 77067

== ENCOUNTER → 2023-08-25 10:36 | Outpatient (CLI) | payer OTHER, SELFPAY ==
[2023-08-25 11:38] LABS: Alanine Aminotransferase 13 IU/L (<35); Albumin 4.2 g/dL (3.5-5.0); Albumin Globulin Ratio 1.7 (1.0-2.8); Alkaline Phosphatase 66 U/L (38-126); Aspartate Aminotransferase 23 IU/L (14-36); BUN Creatinine Ratio 22.2 (6-22); Bilirubin Total 0.6 mg/dL (0.2-1.3); Blood Urea Nitrogen 18 mg/dL (7-17); Calcium 9.5 mg/dL (8.4-10.2); Carbon Dioxide 28 mmol/L (22-32); Chloride 108 mmol/L (98-107); Cholesterol 256 mg/dL (140-199); Estimated Glomerular Filt Rate > 60 mL/min (>60); Globulin 2.5 g/dL (1.7-4.1); Glucose 105 mg/dL (80-110); HDL Cholesterol 61 mg/dL (40-60); HEMOLYSIS < 15 (0-50); LDL Cholesterol Calculated 168 mg/dL (<100); Potassium 4.4 mmol/L (3.4-5.1); Sodium 139 mmol/L (137-145); Total Protein 6.7 g/dL (6.3-8.2); Triglycerides 135 mg/dL (35-150)
== END ==
PROVIDERS: PCP Internal Medicine; Referring Provider Internal Medicine Cardiovascular Disease; Visit Provider Internal Medicine Cardiovascular Disease
DX: I25.10 Atherosclerotic heart disease of native coronary artery without angina pectoris (principal)
CPT/HCPCS: 36415; 80053; 80061

== ENCOUNTER → 2023-11-23 11:13 | Outpatient (CLI) | payer OTHER, SELFPAY | PROVIDERS: PCP Internal Medicine; Visit Provider Obstetrics & Gynecology | DX: N81.89 Other female genital prolapse (principal); N39.0 Urinary tract infection, site not specified | CPT/HCPCS: 87077; 87086; 87186 ==

== ENCOUNTER → 2023-12-22 11:21 | Outpatient (CLI) | payer OTHER, SELFPAY | PROVIDERS: PCP Internal Medicine; Visit Provider Obstetrics & Gynecology | DX: N81.9 Female genital prolapse, unspecified (principal) | CPT/HCPCS: 87077; 87086; 87186 ==

== ENCOUNTER 2024-01-18 19:25 | Emergency (ER) | payer OTHER, SELFPAY ==
[2024-01-18 19:26] VITALS: BP 160/67; PULSE 59; RESP 16; TEMP 36.8; O2SAT 98; BMI 25.8
[2024-01-18 19:30] VITALS: BP 160/67; PULSE 58; O2SAT 98
--- NOTE | 2024-01-18 19:41 | DI.RAD.S_ITS ---
PROCEDURE: XR HIP W PEL IF DONE LT 2V INDICATIONS: left hp pain, fall TECHNIQUE: 2 views of the hip were acquired. COMPARISON: None. FINDINGS: Bones: Bilateral hip arthroplasties. Well corticated ossification inferior to the acetabulum on the left, presumably hypertrophic calcifications given well corticated margins. Soft tissues: No suspicious soft tissue calcifications or masses. IMPRESSION: No displaced fracture. If there remains a high clinical concern or the patient cannot bear weight, consider cross-sectional imaging to exclude an occult fracture. Dictated by: Rafael Villegas M.D. on 01/18/2024 at 20:47 Approved by: Rafael Villegas M.D. on 01/18/2024 at 20:48
--- NOTE | 2024-01-18 19:41 | DI.CT.S_ITS ---
PROCEDURE: CT CERVICAL SPINE WO CON INDICATIONS: left hp pain, fall TECHNIQUE: Noncontrast 3 mm thick sections acquired from the skull base to the T4 level. Sagittal and coronal reformats were then constructed. For radiation dose reduction, the following was used: automated exposure control, adjustment of mA and/or kV according to patient size. COMPARISON: None. FINDINGS: Image quality: Excellent. Bones: No fractures or dislocations. Visualized superior ribs are intact. Soft tissues: Prevertebral soft tissues are normal in thickness. No paravertebral hematomas. No apical pneumothoraces. IMPRESSION: No displaced fracture or traumatic subluxation. Dictated by: Rafael Villegas M.D. on 01/18/2024 at 20:51 Approved by: Rafael Villegas M.D. on 01/18/2024 at 20:53
--- NOTE | 2024-01-18 19:41 | DI.CT.S_ITS ---
PROCEDURE: CT HEAD/BRAIN WO CON INDICATIONS: left hp pain, fall TECHNIQUE: Noncontrast 4.5 mm thick angled axial sections acquired from the foramen magnum to the vertex, with coronal and sagittal reformats. For radiation dose reduction, the following was used: automated exposure control, adjustment of mA and/or kV according to patient size. COMPARISON: None. FINDINGS: Image quality: Diagnostic. CSF spaces: Basal cisterns are patent. No extra-axial fluid collections. The ventricles are symmetric in size and shape. Brain: No intracranial bleeds or masses. There is cerebral volume loss for age, with resultant ventricular and sulcal prominence. There are periventricular and deep white matter chronic small vessel ischemic changes. There is intracranial internal carotid artery atherosclerosis. Skull and face: Calvarium and visualized facial bones appear intact, without suspicious lesions. Sinuses: Visualized sinuses and mastoids are clear. IMPRESSION: No acute intracranial pathology. Dictated by: Rafael Villegas M.D. on 01/18/2024 at 20:48 Approved by: Rafael Villegas M.D. on 01/18/2024 at 20:51
[2024-01-18 20:10] VITALS: BP 145/68; PULSE 56; RESP 16; O2SAT 98
--- NOTE | 2024-01-18 20:12 | ED_ITS ---
HPI - Fall General Chief Complaint: Trauma Stated Complaint: GLF Time Seen by Provider: 01/18/24 19:27 Source: patient, EMS, RN notes reviewed and old records reviewed Mode of arrival: EMS Limitations: no limitations History of Present Illness HPI Narrative: 78-year-old female history of coronary artery disease with 5 cardiac stents, hypertension dyslipidemia on prasugrel. Patient presents with complaint of grou nd level earlier this morning. [place] her dog ran behind her was on a leash and pulled her causing her to fall onto her left side. She did hit her head, she has had little bit a headache afterwards, she is felt sore in her neck, she describes some left hip pain and pelvic pain since then. She states she was able to walk to the car but has had trouble weight-bearing since then. She finds it painful to try to lift at the hip. Patient states no loss of consciousness. No midline cervical or back pain, no chest pain or shortness of breath, no nausea or vomiting, no dizziness. No GI or urinary symptoms. She denies any numbness or tingling of her extremities. Patient has had prior cardiac stents, multiple abdominal and joint surgeries including her left hip replaced. Patient states she has multiple adverse reactions to a variety medications including pain meds. No tobacco, occasional alcohol none today, no recreational drugs. Related Data Home Medications Medication Instructions Recorded Confirmed lisinopril 2.5 mg tablet 1.25 mg PO DAILY 01/11/19 03/18/21 metoprolol tartrate 25 mg tablet 25 mg PO DAILY 01/11/19 03/18/21 nitroglycerin 0.4 mg sublingual 0.4 mg sublingual PRN PRN Chest 01/11/19 03/18/21 tablet Pain prasugrel 10 mg tablet 10 mg PO DAILY 01/18/24 01/18/24 Previous Rx's Medication Instructions Recorded estradiol 0.01% (0.1 mg/gram) See Rx Instructions .Route 04/08/22 vaginal cream .COMPLEX #42.5 grams catheter 14 Fr #30 ea 12/23/23 fosfomycin tromethamine 3 gram 3 g PO ONCE #1 ea 12/24/23 oral packet Allergies Allergy/AdvReac Type Severity Reaction Status Date / Time aspirin Allergy Severe Many- Verified 12/22/23 10:35 Worst anaphlaxis NSAIDS (Non-Steroidal Allergy Severe heart Verified 12/22/23 10:35 Anti-Inflamma stopped adenosine [ADENOSINE] Allergy Unknown Verified 12/22/23 10:35 Opioids - Morphine Analogues Allergy Unknown Verified 12/22/23 10:35 [OPIOIDS - MORPHINE ANALOGUES] [id number]-TPI-[id number] Reductase Allergy Unknown Verified 12/22/23 10:35 Inhibitor [[id number] REDUCTASE INHIBITOR] Sulfa (Sulfonamide Allergy Unknown Verified 12/22/23 10:35 Antibiotics) [SULFA (SULFONAMIDE ANTIBIOTICS)] nitrofurantoin AdvReac Verified 12/22/23 10:35 omeprazole AdvReac Verified 12/22/23 10:35 Review of Systems Review of Systems ROS Unobtainable: All systems reviewed & are unremarkable except as noted in HPI and below Patient History Medical History Hx of coronary stenosis Primary localized osteoarthrosis, pelvic region and thigh (06/13/09) Mixed hyperlipidemia (10/05/16) Kidney stone (09/22/19) Hx of myocardial infarction (01/30/19) History of porphyria Pelvic relaxation 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 Patient appears in mild distress. HEAD: No evidence of trauma, no raccoon/Pal sign. NECK: Nontender, painless range of motion, trachea midline Negative Nexus criteria, no midline line tenderness, distracting injury, altered mental status, neuro deficit, recent EtOH. EYES: PERRLA, EOMI ENT: External inspection normal, trachea is midline, TM's are normal no hem otypanum, Nares are clear, no septal hematoma, no dental or oral injury, airway is normal and with normal occlusion, No bony tenderness RESP: Chest is nontender and has symmetric movement, no ecchymosis, breath sounds are normal no crackles, wheezes or rales CVS: Heart sounds are normal, no murmur noted, No JVD. ABG/GI: Nontender, soft, normal bowel sounds, no distention, no organomegaly, pelvic rock is negative NEURO: Oriented AOx3, neuro is grossly intact, sensation and motor is normal all 4 extremities moving, cranial nerves II through XII are intact, GCS is 15 PSYCH: Normal mood and affect SKIN: Intact, warm and dry, no crepitus and without decubitus BACK: No CVA tenderness, no vertebral tenderness, no step-off's, no crepitus EXT: Atraumatic, left hip is tender, patient has pain with any sort of straight leg raise, no tenderness of the femur, left knee calf ankle or foot. 2+ dorsalis pedis bilaterally. Full range of motion of all other extremities with no other bony tenderness. Initial Vital Signs Initial Vital Signs: Vital Signs Temperature 98.2 F 01/18/24 19:26 Pulse Rate 59 L 01/18/24 19:26 Respiratory Rate 16 01/18/24 19:26 Blood Pressure 160/67 H 01/18/24 19:26 Pulse Oximetry 98 01/18/24 19:26 Oxygen Delivery Method Room Air 01/18/24 19:26 Course Orders Ordered: ED Orders 01/18/24 19:41 CT cervical spine wo con Stat CT head/brain wo con Stat XR hip w pel if done LT 2V Stat 01/18/24 21:04 CT pelvis wo con Stat Vital Signs Vital signs: Vital Signs - 8 hr 01/18/24 19:26 01/18/24 19:30 01/18/24 20:10 Temperature 98.2 F Pulse Rate 59 L 58 L 56 L Respiratory Rate 16 16 Blood Pressure 160/67 H 160/67 H 145/68 H Pulse Oximetry 98 98 98 Oxygen Delivery Method Room Air Room Air MDM - Fall MDM Narrative Medical decision making narrative: 78-year-old female with mechanical ground level fall. Patient had head CT CT C-spine and left hip x-ray Patient very politely defers any medications. Head CT shows no acute change. CT cervical spine shows no displaced fracture or traumatic subluxation. Hip x-ray shows no displaced fracture well corticated ossification. Acetabular left presumably hypertrophic calcification given well corticated margins. Left hip x-ray showed questionable ossification, patient is uncomfortable trying to lift her legs so pelvic CT was obtained which shows no acute bony fracture, while described corticated ossification inferior to left acetabulum corresponds to vascular calcifications. Patient had ambulation trial she was deferred anything for pain up to this point. Discussed if she is hurting can try Tylenol discussed what she can handle potentially for pain management. Patient states she does not want anything including Tylenol. She states she thinks she can weightbear on it. 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 She states now that she knows it has not broken she feels safe to weightbear on it. Discharge Plan Departure Patient Disposition: Home Clinical Impression: Acute pain of left hip, Fall Activity Restrictions/Additional Instructions: Follow up for recheck in the next week. Please call to set up a follow up appointment. Your imaging today including CT of your pelvis and hip shows no break or fracture. You can take Tylenol up to a 1000 mg every 6 hours as needed for pain. Weightbearing as tolerated. I would recommend you use a walker for now. Please return for rapidly worsening symptoms, new numbness weakness or loss of sensation, severe headaches, persistent vomiting, new back pain, chest pain or shortness of breath, new numbness weakness or other new or concerning changes. Prescriptions: No Action estradiol 0.01 % (0.1 mg/gram) cream See Rx Instructions .ROUTE .COMPLEX Qty: 42.5 2RF Dose Instruction: insert 0.5 gram vaginally two times a week Rx Instructions: insert 0.5 gram vaginally two times a week fosfomycin tromethamine 3 gram packet 3 g PO ONCE Qty: 1 0RF (DME) catheter 14 Fr misc See Rx Instructions .Route Qty: 30 1RF Rx Instructions: To use PRN for urinary retention prasugrel 10 mg tablet 10 mg PO DAILY nitroglycerin 0.4 mg tablet, sublingual 0.4 mg sublingual PRN PRN (Reason: Chest Pain) Rx Instructions: PLACE 1 T UNT Q 5 MIN PRF CHEST PAIN FOR UP TO 14 DOSES lisinopril 2.5 mg tablet 1.25 mg PO DAILY metoprolol tartrate 25 mg tablet 25 mg PO DAILY Referrals: Melly Bah MD [Primary Care Provider] - Stand Alone Forms: Patient Portal/API
--- NOTE | 2024-01-18 21:04 | DI.CT.S_ITS ---
PROCEDURE: CT PEL WO CON INDICATIONS: left hip/joint pain, s/p fall, pain weight bearing TECHNIQUE: Noncontrast 3 mm axial sections acquired through the bony pelvis, with coronal and sagittal reformatting. COMPARISON: None. FINDINGS: Image quality: Excellent. Bones: Bilateral total hip arthroplasties, without complication. No significant hip joint effusions. No displaced fracture. Soft tissues: Vascular calcifications. Colonic diverticulosis without evidence of diverticulitis. Bladder is moderately distended. No hydronephrosis. IMPRESSION: No displaced fracture. Previously described well corticated ossification inferior to the left acetabulum corresponded to vascular calcifications. Dictated by: Rafael Villegas M.D. on 01/18/2024 at 21:28 Approved by: Rafael Villegas M.D. on 01/18/2024 at 21:31
--- NOTE | 2024-01-18 22:10 | PC.NURSE ---
Ambulation Trial: Patient assisted with getting dressed and she was able to sit at edge of bed with one staff assist. Patient stood with FWW and walked in room and out in hallway. Patient reported feeling safe with ambulation and comfortable with getting in/out of a cab. [employer] called and cab ride arranged to get patient home. Patient reports her son and friend are at her house and she will call them when on her way home so they can assist her in getting into her house.
== END 2024-01-18 22:25 | disposition home or self-care (01) ==
PROVIDERS: Emergency Provider Emergency Medicine; PCP Internal Medicine
DX: M25.552 Pain in left hip (principal); S09.90XA Unspecified injury of head, initial encounter; M54.2 Cervicalgia; R10.2 Pelvic and perineal pain; Z95.5 Presence of coronary angioplasty implant and graft; W18.30XA Fall on same level, unspecified, initial encounter
CPT/HCPCS: 36415; 70450; 72125; 72192; 73502; 99284

== ENCOUNTER 2024-02-18 09:40 | Emergency (ER) | payer OTHER, SELFPAY ==
[2024-02-18 09:50] VITALS: BP 136/65; PULSE 78; RESP 16; TEMP 36.3; O2SAT 99; BMI 26.7
--- NOTE | 2024-02-18 12:58 | ED.RECABL ---
HPI - Recheck/Abnormal Lab/Rx <Tanya Martinez PA-C - Last Filed: 02/18/24 14:30> General Chief Complaint: Recheck/Abnormal Lab/Rx Stated Complaint: Bat exposure Time Seen by Provider: 02/18/24 11:21 Source: patient Mode of arrival: Ambulatory History of Present Illness HPI narrative: Patient is 78-year-old female presents to the emergency room department for post exposure rabies. Patient recently had immunization with immunoglobulin and vaccine July 2021. Patient found a bat in her home. She was not bitten. However did come in contact with the bat. No physical complaints. Due to the fact the patient has previously had immunoglobulin, per the CDC guidelines she only needs a vaccine shot today, and will then need her 2nd shot on the . Related Data Home Medications Medication Instructions Recorded Confirmed lisinopril 2.5 mg tablet 1.25 mg PO DAILY 01/11/19 03/18/21 metoprolol tartrate 25 mg tablet 25 mg PO DAILY 01/11/19 03/18/21 nitroglycerin 0.4 mg sublingual 0.4 mg sublingual PRN PRN Chest 01/11/19 03/18/21 tablet Pain prasugrel 10 mg tablet 10 mg PO DAILY 01/18/24 01/18/24 Previous Rx's Medication Instructions Recorded estradiol 0.01% (0.1 mg/gram) See Rx Instructions .Route 04/08/22 vaginal cream .COMPLEX #42.5 grams catheter 14 Fr #30 ea 12/23/23 fosfomycin tromethamine 3 gram 3 g PO ONCE #1 ea 12/24/23 oral packet Allergies Allergy/AdvReac Type Severity Reaction Status Date / Time aspirin Allergy Severe Many- Verified 02/18/24 09:53 Worst anaphlaxis NSAIDS (Non-Steroidal Allergy Severe heart Verified 02/18/24 09:53 Anti-Inflamma stopped adenosine [ADENOSINE] Allergy Unknown Verified 02/18/24 09:53 cephalexin Allergy Unknown Verified 02/18/24 09:54 doxycycline Allergy Unknown Verified 02/18/24 09:54 Opioids - Morphine Analogues Allergy Unknown Verified 02/18/24 09:53 [OPIOIDS - MORPHINE ANALOGUES] [id number] Reductase Allergy Unknown Verified 02/18/24 09:53 Inhibitor [[id number] REDUCTASE INHIBITOR] Sulfa (Sulfonamide Allergy Unknown Verified 02/18/24 09:53 Antibiotics) [SULFA (SULFONAMIDE ANTIBIOTICS)] nitrofurantoin AdvReac Verified 02/18/24 09:53 omeprazole AdvReac Verified 02/18/24 09:53 Review of Systems <Tanya Martinez PA-C - Last Filed: 02/18/24 14:30> Review of Systems Narrative: Negative except as above Patient History <Tanya Martinez PA-C - Last Filed: 02/18/24 14:30> Medical History Hx of coronary stenosis Primary localized osteoarthrosis, pelvic region and thigh (06/13/09) Mixed hyperlipidemia (10/05/16) Kidney stone (09/22/19) Hx of myocardial infarction (01/30/19) History of porphyria Pelvic relaxation 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 Coronary artery disease Chest pain Acute coronary syndrome Renal cyst, left Surgical History 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) Hx of bilateral hip replacements Hx of lithotripsy Hx of cholecystectomy H/O coronary angioplasty Social History Smoking Status: Former smoker Smoking Status: Former smoker tobacco type: cigarettes alcohol intake frequency: 0-2 drinks per day Substance Use Type: does not use Exam <Tanya Martinez PA-C - Last Filed: 02/18/24 14:30> Initial Vital Signs Initial Vital Signs: Vital Signs Temperature 97.3 F L 02/18/24 09:50 Pulse Rate 78 02/18/24 09:50 Respiratory Rate 16 02/18/24 09:50 Blood Pressure 136/65 02/18/24 09:50 Pulse Oximetry 99 02/18/24 09:50 Oxygen Delivery Method Room Air 02/18/24 09:50 Reviewed <Cierra Pabon DO - Last Filed: 02/19/24 08:13> Initial Vital Signs Initial Vital Signs: Vital Signs Temperature 97.3 F L 02/18/24 09:50 Pulse Rate 78 02/18/24 09:50 Respiratory Rate 16 02/18/24 09:50 Blood Pressure 136/65 02/18/24 09:50 Pulse Oximetry 99 02/18/24 09:50 Oxygen Delivery Method Room Air 02/18/24 09:50 Course <Tanya Martinez PA-C - Last Filed: 02/18/24 14:30> Orders Ordered: Discontinued Medications Rabies Immune Globulin (Rabies Immune Globulin 300 Unit/Ml 1ml Vial) 1,500 unit 20 unit/kg (1551 unit) IM NOW ONE Stop: 02/18/24 13:31 Last Admin: 02/18/24 14:32 Dose: Not Given Documented By: NAOMI Rabies Vaccine (Rabies Vaccine (Rabavert) 2.5 Units Syringe) 2.5 units IM .ONCE ONE Stop: 02/18/24 12:59 Last Admin: 02/18/24 14:26 Dose: 2.5 units Documented By: NAOMI Vital Signs Vital signs: Vital Signs - 8 hr 02/18/24 09:50 Temperature 97.3 F L Pulse Rate 78 Respiratory Rate 16 Blood Pressure 136/65 Pulse Oximetry 99 Oxygen Delivery Method Room Air <Cierra Pabon DO - Last Filed: 02/19/24 08:13> Orders Ordered: Discontinued Medications Rabies Immune Globulin (Rabies Immune Globulin 300 Unit/Ml 1ml Vial) 1,500 unit 20 unit/kg (1551 unit) IM NOW ONE Stop: 02/18/24 13:31 Last Admin: 02/18/24 14:32 Dose: Not Given Documented By: NAOMI Rabies Vaccine (Rabies Vaccine (Rabavert) 2.5 Units Syringe) 2.5 units IM .ONCE ONE Stop: 02/18/24 12:59 Last Admin: 02/18/24 14:26 Dose: 2.5 units Documented By: NAOMI Vital Signs Vital signs: Vital Signs - 8 hr 02/18/24 09:50 Temperature 97.3 F L Pulse Rate 78 Respiratory Rate 16 Blood Pressure 136/65 Pulse Oximetry 99 Oxygen Delivery Method Room Air MDM - Recheck/Abnormal Lab/Rx <Tanya Martinez PA-C - Last Filed: 02/18/24 14:30> MDM Narrative Medical decision making narrative: 78-year-old female here for post exposure rabies shot. Patient previously received immunoglobulin within the last 5 years. Per CDC guidelines only needs the vaccine and vaccine shot on day 3. Patient will come back on the 16th to have her 2nd shot. She has no physical complaints. Patient received her 1st vaccine shot. Patient discharged in stable condition. Differential diagnosis post exposure rabies shot. Discharge Plan Departure Patient Disposition: Home Clinical Impression: Need for post exposure prophylaxis for rabies Activity Restrictions/Additional Instructions: Since you are already had previous vaccines your here for prophylaxis only, today your 1st vaccine, you will need to return on the 16th for your 2nd vaccine shot. You will need no further treatment. Just so that you know currently at this time this hospital does not run rabies titer is here, they are a send out, they take a little over a week for the results to come back. Prescriptions: No Action estradiol 0.01 % (0.1 mg/gram) cream See Rx Instructions .ROUTE .COMPLEX Qty: 42.5 2RF Dose Instruction: insert 0.5 gram vaginally two times a week Rx Instructions: insert 0.5 gram vaginally two times a week fosfomycin tromethamine 3 gram packet 3 g PO ONCE Qty: 1 0RF (DME) catheter 14 Fr misc See Rx Instructions .Route Qty: 30 1RF Rx Instructions: To use PRN for urinary retention prasugrel 10 mg tablet 10 mg PO DAILY nitroglycerin 0.4 mg tablet, sublingual 0.4 mg sublingual PRN PRN (Reason: Chest Pain) Rx Instructions: PLACE 1 T UNT Q 5 MIN PRF CHEST PAIN FOR UP TO 14 DOSES lisinopril 2.5 mg tablet 1.25 mg PO DAILY metoprolol tartrate 25 mg tablet 25 mg PO DAILY Referrals: Melly Bah MD [Primary Care Provider] - Stand Alone Forms: Patient Portal/API ED Sign-out <Cierra Pabon DO - Last Filed: 02/19/24 08:13> Cosign ED Attending Joiature Attestation: I was available for consultation.
--- NOTE | 2024-02-18 13:57 | PC.NURSE ---
Attempted to given pt her vaccine and she statred yelling that she did not want the immunoglobulin part of the vaccination and it is not part of the protocol.. Pt was getting aggressive and provider called to bedside. Pharmacy called in to talk to pt about CDC protocol.
[2024-02-18] MEDS: RABIES VACCINE (RABAVERT) 2.5 UNITS SYRINGE IM (14:26)
== END 2024-02-18 14:39 | disposition home or self-care (01) ==
PROVIDERS: Emergency Provider Physician Assistant; PCP Internal Medicine
DX: Z20.3 Contact with and (suspected) exposure to rabies (principal); Z23 Encounter for immunization
CPT/HCPCS: 90471; 90675; 99283

== ENCOUNTER 2024-02-21 10:06 | Emergency (ER) | payer OTHER, SELFPAY ==
[2024-02-21 10:14] VITALS: BP 140/67; PULSE 82; RESP 14; TEMP 36.2; O2SAT 99
--- NOTE | 2024-02-21 10:23 | ED_ITS ---
HPI - Recheck/Abnormal Lab/Rx General Chief Complaint: Recheck/Abnormal Lab/Rx Stated Complaint: Second rabies shot needed Time Seen by Provider: 02/21/24 10:18 Source: patient Mode of arrival: Ambulatory History of Present Illness HPI narrative: 78-year-old female presents for 2nd rabies shot administration, 1st was on 02/18/2024 due to an encounter with a bat in the house. No bite. No complaints at this time. Related Data Home Medications Medication Instructions Recorded Confirmed lisinopril 2.5 mg tablet 1.25 mg PO DAILY 01/11/19 03/18/21 metoprolol tartrate 25 mg tablet 25 mg PO DAILY 01/11/19 03/18/21 nitroglycerin 0.4 mg sublingual 0.4 mg sublingual PRN PRN Chest 01/11/19 03/18/21 tablet Pain prasugrel 10 mg tablet 10 mg PO DAILY 01/18/24 01/18/24 Previous Rx's Medication Instructions Recorded estradiol 0.01% (0.1 mg/gram) See Rx Instructions .Route 04/08/22 vaginal cream .COMPLEX #42.5 grams catheter 14 Fr #30 ea 12/23/23 fosfomycin tromethamine 3 gram 3 g PO ONCE #1 ea 12/24/23 oral packet Allergies Allergy/AdvReac Type Severity Reaction Status Date / Time aspirin Allergy Severe Many- Verified 02/21/24 10:15 Worst anaphlaxis NSAIDS (Non-Steroidal Allergy Severe heart Verified 02/21/24 10:15 Anti-Inflamma stopped adenosine [ADENOSINE] Allergy Unknown Verified 02/21/24 10:15 cephalexin Allergy Unknown Verified 02/21/24 10:15 doxycycline Allergy Unknown Verified 02/21/24 10:15 Opioids - Morphine Analogues Allergy Unknown Verified 02/21/24 10:15 [OPIOIDS - MORPHINE ANALOGUES] [id number] Reductase Allergy Unknown Verified 02/21/24 10:15 Inhibitor [[id number] REDUCTASE INHIBITOR] Sulfa (Sulfonamide Allergy Unknown Verified 02/21/24 10:15 Antibiotics) [SULFA (SULFONAMIDE ANTIBIOTICS)] nitrofurantoin AdvReac Verified 02/21/24 10:15 omeprazole AdvReac Verified 02/21/24 10:15 Review of Systems Review of Systems Narrative: General: Encounter for rabies vaccine HEENT: Denies headache, eye drainage, eye irritation, head trauma, sore throat, voice change Cardiovascular: Denies any chest pain, palpitations, shortness of breath, tachycardia Respiratory: Denies any shortness of breath, cough, wheeze, stridor GI/: Denies any abdominal pain, nausea, vomiting, diarrhea, bright red blood per rectum, melanotic stools, urinary frequency, urinary retention, dysuria, hematuria MSK: Denies any joint pain, muscle pains, swelling Skin: Denies any rashes, lesions, discoloration Neuro: Denies any headache, lightheadedness, dizziness, fainting, weakness Psych: Denies SI/HI Patient History Medical History Hx of coronary stenosis Primary localized osteoarthrosis, pelvic region and thigh (06/13/09) Mixed hyperlipidemia (10/05/16) Kidney stone (09/22/19) Hx of myocardial infarction (01/30/19) History of porphyria Pelvic relaxation 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 Coronary artery disease Chest pain Acute coronary syndrome Renal cyst, left Surgical History 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) Hx of bilateral hip replacements Hx of lithotripsy Hx of cholecystectomy H/O coronary angioplasty Social History Smoking Status: Former smoker Smoking Status: Former smoker tobacco type: cigarettes alcohol intake frequency: 0-2 drinks per day Substance Use Type: does not use Exam Narrative Exam Narrative: General: Cooperative, comfortable, well-developed, not in acute distress HEENT: Normocephalic, atraumatic, PERRLA, normal sclera, eyelids normal, Neck: Active full range of motion, atraumatic Chest: Normal to inspection, negative crepitus, no overlying erythema ecchymosis Respiratory: Normal respiratory effort, not in acute respiratory distress, clear to auscultation bilaterally negative cough, wheeze, tachypnea, rhonchi, rales Cardiology: Regular rate rhythm negative gallop, murmur, rubs GI/: Normal to inspection, soft, nonrigid, no tenderness to palpation, exam deferred MSK: Full range of active range of motion of all 4 extremities, atraumatic Skin: No rashes lesions noted Neuro: Alert awake oriented x3, moves all 4 extremities spontaneously, cranial nerves intact, able to answer all questions appropriately follows commands kylah ropriately Psych: Cooperative, negative suicidal or homicidal ideations Initial Vital Signs Initial Vital Signs: Vital Signs Temperature 97.1 F L 02/21/24 10:14 Pulse Rate 82 02/21/24 10:14 Respiratory Rate 14 02/21/24 10:14 Blood Pressure 140/67 02/21/24 10:14 Pulse Oximetry 99 02/21/24 10:14 Oxygen Delivery Method Room Air 02/21/24 10:14 Course Orders Ordered: Discontinued Medications Rabies Vaccine (Rabies Vaccine (Rabavert) 2.5 Units Syringe) 2.5 units IM .ONCE ONE Stop: 02/21/24 10:19 Vital Signs Vital signs: Vital Signs - 8 hr 02/21/24 10:14 Temperature 97.1 F L Pulse Rate 82 Respiratory Rate 14 Blood Pressure 140/67 Pulse Oximetry 99 Oxygen Delivery Method Room Air MDM - Recheck/Abnormal Lab/Rx Differential Diagnosis Differential diagnosis: Likely other (Encounter for rabies vaccine) Medical Records Attestation: I reviewed the patient's medical records. MDM Narrative Medical decision making narrative: Patient is a 78-year-old female presenting for 2nd dose of rabies vaccine, did encounter bed in-home no bite talbert. Tolerated 1st vaccine on 02/18/2024. Instructed to follow-up to obtain 3rd administration on 02/25/2024. Safe for discharge home with outpatient follow-up Discharge Plan Departure Patient Disposition: Home Clinical Impression: Encounter for repeat administration of rabies vaccination Activity Restrictions/Additional Instructions: Please return for your 3rd rabies shot on the Prescriptions: No Action estradiol 0.01 % (0.1 mg/gram) cream See Rx Instructions .ROUTE .COMPLEX Qty: 42.5 2RF Dose Instruction: insert 0.5 gram vaginally two times a week Rx Instructions: insert 0.5 gram vaginally two times a week fosfomycin tromethamine 3 gram packet 3 g PO ONCE Qty: 1 0RF (DME) catheter 14 Fr misc See Rx Instructions .Route Qty: 30 1RF Rx Instructions: To use PRN for urinary retention prasugrel 10 mg tablet 10 mg PO DAILY nitroglycerin 0.4 mg tablet, sublingual 0.4 mg sublingual PRN PRN (Reason: Chest Pain) Rx Instructions: PLACE 1 T UNT Q 5 MIN PRF CHEST PAIN FOR UP TO 14 DOSES lisinopril 2.5 mg tablet 1.25 mg PO DAILY metoprolol tartrate 25 mg tablet 25 mg PO DAILY Referrals: Melly Bah MD [Primary Care Provider] - Stand Alone Forms: Patient Portal/API
[2024-02-21] MEDS: RABIES VACCINE (RABAVERT) 2.5 UNITS SYRINGE IM (10:28)
--- NOTE | 2024-02-21 10:47 | PC.NURSE ---
Pt concerned that she was told at her last visit that she would only need a 2 dose series instead of 5 doses due to being vaccinated for rabies 7 times in her life. Advised to contact the health department and we would gladly work with their recommendations.
== END 2024-02-21 10:37 | disposition home or self-care (01) ==
PROVIDERS: Emergency Provider Student in an Organized Health Care Education/Training Program; PCP Internal Medicine
DX: Z20.3 Contact with and (suspected) exposure to rabies (principal); Z23 Encounter for immunization
CPT/HCPCS: 90471; 90675; 99283

== ENCOUNTER 2024-05-03 19:11 | Emergency (ER) | payer OTHER, SELFPAY ==
[2024-05-03 19:20] VITALS: BP 121/58; PULSE 66; RESP 16; TEMP 36.6; O2SAT 97; BMI 25.0
--- NOTE | 2024-05-03 20:07 | ED_ITS ---
HPI - General Adult General Chief complaint: Urogenital-Female Stated complaint: urinary problem, sent by PCP Time Seen by Provider: 05/03/24 19:30 Source: patient Mode of arrival: Ambulatory History of Present Illness HPI narrative: Patient was a 78-year-old female who has had a history of bladder prolapse. Has a pessary but is not wearing it. For the past month has been doing self- catheterizations of her urine. She states that she was tried to use the pessary however keeps falling out. She states she catheter self this morning but has been unable to do so for the rest of the day because she meets quite a bit of resistance and was concerned that she may injure something. Was instructed to come to the emergency department because she feels like she was retaining urine. Related Data Home Medications Medication Instructions Recorded Confirmed lisinopril 2.5 mg tablet 1.25 mg PO DAILY 01/11/19 03/18/21 metoprolol tartrate 25 mg tablet 25 mg PO DAILY 01/11/19 03/18/21 nitroglycerin 0.4 mg sublingual 0.4 mg sublingual PRN PRN Chest 01/11/19 03/18/21 tablet Pain prasugrel 10 mg tablet 10 mg PO DAILY 01/18/24 01/18/24 Previous Rx's Medication Instructions Recorded estradiol 0.01% (0.1 mg/gram) See Rx Instructions .Route 04/08/22 vaginal cream .COMPLEX #42.5 grams catheter 14 Fr #30 ea 12/23/23 fosfomycin tromethamine 3 gram 3 g PO ONCE #1 ea 12/24/23 oral packet Allergies Allergy/AdvReac Type Severity Reaction Status Date / Time aspirin Allergy Severe Many- Verified 02/21/24 10:15 Worst anaphlaxis NSAIDS (Non-Steroidal Allergy Severe heart Verified 02/21/24 10:15 Anti-Inflamma stopped adenosine [ADENOSINE] Allergy Unknown Verified 02/21/24 10:15 cephalexin Allergy Unknown Verified 02/21/24 10:15 doxycycline Allergy Unknown Verified 02/21/24 10:15 Opioids - Morphine Analogues Allergy Unknown Verified 02/21/24 10:15 [OPIOIDS - MORPHINE ANALOGUES] [id number] Reductase Allergy Unknown Verified 02/21/24 10:15 Inhibitor [[id number] REDUCTASE INHIBITOR] Sulfa (Sulfonamide Allergy Unknown Verified 02/21/24 10:15 Antibiotics) [SULFA (SULFONAMIDE ANTIBIOTICS)] nitrofurantoin AdvReac Verified 02/21/24 10:15 omeprazole AdvReac Verified 02/21/24 10:15 Review of Systems Review of Systems Narrative: See HPI Patient History Medical History Hx of coronary stenosis Primary localized osteoarthrosis, pelvic region and thigh (06/13/09) Mixed hyperlipidemia (10/05/16) Kidney stone (09/22/19) Hx of myocardial infarction (01/30/19) History of porphyria Pelvic relaxation 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 Coronary artery disease Chest pain Acute coronary syndrome Renal cyst, left Surgical History 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) Hx of bilateral hip replacements Hx of lithotripsy Hx of cholecystectomy H/O coronary angioplasty Social History Smoking Status: Former smoker Smoking Status: Former smoker tobacco type: cigarettes alcohol intake frequency: a few times a month Substance Use Type: does not use Exam Initial Vital Signs Initial Vital Signs: Vital Signs Temperature 97.8 F 05/03/24 19:20 Pulse Rate 66 05/03/24 19:20 Respiratory Rate 16 05/03/24 19:20 Blood Pressure 121/58 L 05/03/24 19:20 Pulse Oximetry 97 05/03/24 19:20 Oxygen Delivery Method Room Air 05/03/24 19:20 Const General: cooperative and comfortable GI Inspection: non-distended Other: Carranza catheter in place Neuro General: patient alert and patient awake Course Vital Signs Vital signs: Vital Signs - 8 hr 05/03/24 19:20 Temperature 97.8 F Pulse Rate 66 Respiratory Rate 16 Blood Pressure 121/58 L Pulse Oximetry 97 Oxygen Delivery Method Room Air Medical Decision Making MDM Narrative Medical decision making narrative: Carranza catheter is placed and is draining urine. She was had a Carranza catheter in the past. I recommended that we leave the Carranza catheter in place so that she can follow-up with Urology/ planning management it specialist/urogynecology. She was given return precautions. She expressed understanding agreement with plan. Discharge Plan Departure Patient Disposition: Home Clinical Impression: Acute urinary retention, Bladder prolapse Instructions: How to Care for Your Carranza Catheter -- Female Activity Restrictions/Additional Instructions: continue to take all of your medications as directed. After the holiday I recommend that you give Dr. Anne's office a call for a follow-up. Also contact your primary doctor. Return to the emergency department for new or worsening symptoms. Prescriptions: No Action estradiol 0.01 % (0.1 mg/gram) cream See Rx Instructions .ROUTE .COMPLEX Qty: 42.5 2RF Dose Instruction: insert 0.5 gram vaginally two times a week Rx Instructions: insert 0.5 gram vaginally two times a week fosfomycin tromethamine 3 gram packet 3 g PO ONCE Qty: 1 0RF (DME) catheter 14 Fr misc See Rx Instructions .Route Qty: 30 1RF Rx Instructions: To use PRN for urinary retention prasugrel 10 mg tablet 10 mg PO DAILY nitroglycerin 0.4 mg tablet, sublingual 0.4 mg sublingual PRN PRN (Reason: Chest Pain) Rx Instructions: PLACE 1 T UNT Q 5 MIN PRF CHEST PAIN FOR UP TO 14 DOSES lisinopril 2.5 mg tablet 1.25 mg PO DAILY metoprolol tartrate 25 mg tablet 25 mg PO DAILY Referrals: Britney Anne MD [Physician] - Austin Cummings MD [Physician] - Melly Bah MD [Primary Care Provider] - Stand Alone Forms: Patient Portal/API/Survey
--- NOTE | 2024-05-03 20:33 | PC.NURSE ---
Patient switched to leg bag and educated on care of bojorquez.
== END 2024-05-03 20:34 | disposition home or self-care (01) ==
PROVIDERS: Emergency Provider Emergency Medicine; PCP Internal Medicine
DX: R33.8 Other retention of urine (principal); N81.10 Cystocele, unspecified
CPT/HCPCS: 99283

== ENCOUNTER 2024-05-04 11:27 | Emergency (ER) | payer OTHER, SELFPAY ==
[2024-05-04 11:37] VITALS: BP 133/62; PULSE 62; RESP 14; TEMP 36.4; O2SAT 99; BMI 25.0
[2024-05-04 12:10] VITALS: PULSE 61; TEMP 36.6; O2SAT 98
[2024-05-04 12:11] VITALS: BP 138/60; PULSE 60; O2SAT 98
[2024-05-04 12:30] VITALS: BP 130/60; PULSE 57; O2SAT 98
[2024-05-04 12:33] LABS: Appearance Urine UA CLOUDY; Bilirubin Urine UA NEGATIVE (NEGATIVE); Color Urine UA YELLOW; Glucose Urine UA NEGATIVE (Negative); Ketones Urine UA NEGATIVE (NEGATIVE); Leukocyte Esterase Urine UA 1+ (NEGATIVE); Nitrite Urine UA POSITIVE (Negative); Occult Blood Urine UA 3+ (Negative); Protein Urine UA TRACE (Negative); Specific Gravity Urine UA 1.025 (1.000-1.035); Urobilinogen Urine UA 0.2 E.U./dL (0.2)
[2024-05-04 12:40] LABS: Bacteria Urine Moderate (10-30); Culture Indicated Urine Specimen Cultured; RBC Urine >100/HPF (0-5/HPF); Squamous Epithelial Cell Urine 0-1 /HPF (0-5/HPF); Urine Volume 10mL (spun); WBC Urine 1-5/HPF (0-5/HPF)
[2024-05-04 13:00] VITALS: BP 139/67; PULSE 64; O2SAT 98
--- NOTE | 2024-05-04 13:02 | ED_ITS ---
HPI - Female Genitourinary <Shantal Cedillo PA-C - Last Filed: 05/04/24 14:17> General Chief complaint: Urogenital-Female Stated complaint: Cath issues, Painful Time Seen by Provider: 05/04/24 12:12 Source: patient Mode of arrival: Wheelchair History of Present Illness HPI Narrative: 78-year-old female returns this morning for concerns regarding her Carranza catheter. She was seen last night here by Dr. Braden due to her history vaginal prolapse for the last 5 years. She was trying to treat with a pessary but states it kept falling out. She was also attempting to perform [id number] but had difficulty yesterday, thus her ED visit. A 14 [place] Carranza catheter was placed last night and she was discharged. Her OBGYN is Dr. Anne. She is denying any fever, nausea, vomiting, abdominal pain, flank pain. She describes pressure pointing to her vulvar region. She also states she feels as if her rectum is full. She did poop this morning and she described it as normal. She is denying any mucus or blood in her stools or any constipation or straining. All other systems reviewed and are negative. Related Data Home Medications Medication Instructions Recorded Confirmed lisinopril 2.5 mg tablet 1.25 mg PO DAILY 01/11/19 03/18/21 metoprolol tartrate 25 mg tablet 25 mg PO DAILY 01/11/19 03/18/21 nitroglycerin 0.4 mg sublingual 0.4 mg sublingual PRN PRN Chest 01/11/19 03/18/21 tablet Pain prasugrel 10 mg tablet 10 mg PO DAILY 01/18/24 01/18/24 Previous Rx's Medication Instructions Recorded estradiol 0.01% (0.1 mg/gram) See Rx Instructions .Route 04/08/22 vaginal cream .COMPLEX #42.5 grams catheter 14 Fr #30 ea 12/23/23 fosfomycin tromethamine 3 gram 3 g PO ONCE #1 ea 12/24/23 oral packet Allergies Allergy/AdvReac Type Severity Reaction Status Date / Time aspirin Allergy Severe Many- Verified 02/21/24 10:15 Worst anaphlaxis NSAIDS (Non-Steroidal Allergy Severe heart Verified 02/21/24 10:15 Anti-Inflamma stopped adenosine [ADENOSINE] Allergy Unknown Verified 02/21/24 10:15 cephalexin Allergy Unknown Verified 02/21/24 10:15 doxycycline Allergy Unknown Verified 02/21/24 10:15 Opioids - Morphine Analogues Allergy Unknown Verified 02/21/24 10:15 [OPIOIDS - MORPHINE ANALOGUES] [id number]-[id number] Reductase Allergy Unknown Verified 02/21/24 10:15 Inhibitor [[id number]-BWU-AEG REDUCTASE INHIBITOR] Sulfa (Sulfonamide Allergy Unknown Verified 02/21/24 10:15 Antibiotics) [SULFA (SULFONAMIDE ANTIBIOTICS)] nitrofurantoin AdvReac Verified 02/21/24 10:15 omeprazole AdvReac Verified 02/21/24 10:15 Review of Systems <Shantal Cedillo PA-C - Last Filed: 05/04/24 14:17> Review of Systems Narrative: All other systems reviewed and are negative. 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) Hx of bilateral hip replacements Hx of lithotripsy Hx of cholecystectomy H/O coronary angioplasty tobacco type: cigarettes alcohol intake frequency: a few times a month Substance Use Type: does not use Exam <Shantal Cedillo PA-C - Last Filed: 05/04/24 14:17> Initial Vital Signs Initial Vital Signs: Vital Signs Temperature 97.5 F L 05/04/24 11:37 Pulse Rate 62 05/04/24 11:37 Respiratory Rate 14 05/04/24 11:37 Blood Pressure 133/62 05/04/24 11:37 Pulse Oximetry 99 05/04/24 11:37 Oxygen Delivery Method Room Air 05/04/24 11:37 Const Other: 78-year-old female lying on the exam table in no obvious distress but uncomfortable appearing. Resp Auscultation: clear to auscultation bilaterally, no rales, no rhonchi and no wheezes Cardio Rate: regular rate Rhythm: regular rhythm GI Other: Bowel sounds are present, soft nontender, no hepatosplenomegaly, no CVA tenderness. Other: Examined in the left lateral position, moist stool was cleansed from the perirectal region, this very large obvious vaginal prolapse. The tissues are otherwise pink, it is soft but on reducible, there are two small superficial ulcerations, in the right lateral aspect at the introitus involving the vaginal tissues, it is at 9 o'clock. No fluctuance, no redness. Nontender at this site. Rectal exam there is no retained stool in the vault, no evidence of any fistula, no communication between the perineum. Vulva is otherwise clear, intact 14 [place] Carranza catheter. Tissues are pink. Skin Other: No skin breakdown on the buttocks, there is some pink discoloration bilaterally however, nontender, no evidence of any pressure wounds. Skin is intact. <Shant Palacios MD - Last Filed: 05/04/24 19:36> Initial Vital Signs Initial Vital Signs: Vital Signs Temperature 97.5 F L 05/04/24 11:37 Pulse Rate 62 05/04/24 11:37 Respiratory Rate 14 05/04/24 11:37 Blood Pressure 133/62 05/04/24 11:37 Pulse Oximetry 99 05/04/24 11:37 Oxygen Delivery Method Room Air 05/04/24 11:37 Course <Shantal Cedillo PA-C - Last Filed: 05/04/24 14:17> Orders Ordered: ED Orders 05/04/24 12:22 Urinalysis and Microscopic Stat Urine Culture Stat Discontinued Medications Fosfomycin Tromethamine (Fosfomycin 3 Gm Packet) 3 gm PO NOW ONE Stop: 05/04/24 13:34 Last Admin: 05/04/24 14:05 Dose: 3 gm Documented By: DKB Consultations Consultation #1: Consulted Dr. Arndt, on-call canceling machine operator. No intervention today or this weekend, advising she should follow up with OBGYN on Wednesday. She is already established with Dr. Anne. Discussed the vaginal prolapse as well as the small superficial ulceration, we discussed wound care such as lidocaine gel, Vaseline or A&D ointment to keep the tissues in contact with each other, avoiding unnecessary friction. Vital Signs Vital signs: Vital Signs - 8 hr 05/04/24 11:37 05/04/24 12:10 05/04/24 12:11 Temperature 97.5 F L 97.8 F Pulse Rate 62 61 60 Respiratory Rate 14 Blood Pressure 133/62 Pulse Oximetry 99 98 98 Oxygen Delivery Method Room Air Room Air 05/04/24 12:11 05/04/24 12:30 05/04/24 12:30 Temperature Pulse Rate 57 L Respiratory Rate Blood Pressure 138/60 130/60 Pulse Oximetry 98 Oxygen Delivery Method 05/04/24 13:00 05/04/24 13:00 05/04/24 13:30 Temperature Pulse Rate 64 64 Respiratory Rate Blood Pressure 139/67 Pulse Oximetry 98 99 Oxygen Delivery Method 05/04/24 13:30 Temperature Pulse Rate Respiratory Rate Blood Pressure 156/72 H Pulse Oximetry Oxygen Delivery Method <Shant Palacios MD - Last Filed: 05/04/24 19:36> Orders Ordered: ED Orders 05/04/24 12:22 Urinalysis and Microscopic Stat Urine Culture Stat Discontinued Medications Fosfomycin Tromethamine (Fosfomycin 3 Gm Packet) 3 gm PO NOW ONE Stop: 05/04/24 13:34 Last Admin: 05/04/24 14:05 Dose: 3 gm Documented By: JOHN Vital Signs Vital signs: Vital Signs - 8 hr 05/04/24 11:37 05/04/24 12:10 05/04/24 12:11 Temperature 97.5 F L 97.8 F Pulse Rate 62 61 60 Respiratory Rate 14 Blood Pressure 133/62 Pulse Oximetry 99 98 98 Oxygen Delivery Method Room Air Room Air 05/04/24 12:11 05/04/24 12:30 05/04/24 12:30 Temperature Pulse Rate 57 L Respiratory Rate Blood Pressure 138/60 130/60 Pulse Oximetry 98 Oxygen Delivery Method 05/04/24 13:00 05/04/24 13:00 05/04/24 13:30 Temperature Pulse Rate 64 64 Respiratory Rate Blood Pressure 139/67 Pulse Oximetry 98 99 Oxygen Delivery Method 05/04/24 13:30 Temperature Pulse Rate Respiratory Rate Blood Pressure 156/72 H Pulse Oximetry Oxygen Delivery Method MDM - Female Genitourinary <Shantal Cedillo PA-C - Last Filed: 05/04/24 14:17> Lab Data Lab results narrative: Point of care urinalysis was nitrite positive with blood, this was a Carranza catheter sterile specimen. She is treated today with fosfomycin 3 g p.o. x1. New urine culture and sensitivity are pending. I did review her previous cultures the last 1 was December 2023 she grew E. coli with multiple resistance. Labs: Lab Results 05/04/24 Range/Units 12:22 Urine Color Yellow Urine Appearance Cloudy Urine pH 5.0 (4.5-8.0) Ur Specific [place] 1.025 (1.000-1.035) Urine Protein Trace H (Negative) Urine Glucose (UA) Negative (Negative) g/dL Urine Ketones Negative (NEGATIVE) Urine Occult Blood 3+ H (Negative) Urine Nitrate Positive H (Negative) Urine Bilirubin Negative (NEGATIVE) Urine Urobilinogen 0.2 (0.2) E.U./dL Ur Leukocyte Esterase 1+ H (NEGATIVE) Urine RBC >100/hpf H (0-5/HPF) Urine WBC 1-5/hpf (0-5/HPF) Ur Squamous Epith Cells 0-1 /hpf (0-5/HPF) Urine Bacteria Moderate (10-30) H (None) Ur Culture Indicated? Specimen cultured Vol Urine Centrifuged 10ml (spun) MDM Narrative Medical decision making narrative: Discussed the case with attending Dr. Kumar. Consulted Dr. Arndt, DIRECTOR OF VOLUNTEER SERVICES. Chronic vaginal vault prolapse. She has an indwelling Carranza catheter that needs to remain, I consulted with Dr. Arndt who advised that she will just need to contact the office on Wednesday as there has no acute surgical intervention at this point. The patient declined fosfomycin single dose for her UTI stating she is not sure how it will affect her. Per her record it states she did have this medication in December of 2023, it is unclear if she ever filled this prescription however. She is declining any alternative at this point, she does have multiple allergies, she is threatening to leave Against Medical Advice at this point because she has things to do at home and needs take care of her son. I contacted the pharmacy to compare her med list on record with what she currently has, at this point this medication was prescribed December 24, 2023 for UTI, the patient states she does not recall taking it at that time. Due to the holiday and her refusal, we have sent this medication home with her with explicit instructions on how to take it. I have given her 911 instructions as well. She basically was ready to walk out of the emergency department prior to receiving her discharge papers has again she I need to go. <Shant Palacios MD - Last Filed: 05/04/24 19:36> Lab Data Labs: Lab Results 05/04/24 Range/Units 12:22 Urine Color Yellow Urine Appearance Cloudy Urine pH 5.0 (4.5-8.0) Ur Specific [place] 1.025 (1.000-1.035) Urine Protein Trace H (Negative) Urine Glucose (UA) Negative (Negative) g/dL Urine Ketones Negative (NEGATIVE) Urine Occult Blood 3+ H (Negative) Urine Nitrate Positive H (Negative) Urine Bilirubin Negative (NEGATIVE) Urine Urobilinogen 0.2 (0.2) E.U./dL Ur Leukocyte Esterase 1+ H (NEGATIVE) Urine RBC >100/hpf H (0-5/HPF) Urine WBC 1-5/hpf (0-5/HPF) Ur Squamous Epith Cells 0-1 /hpf (0-5/HPF) Urine Bacteria Moderate (10-30) H (None) Ur Culture Indicated? Specimen cultured Vol Urine Centrifuged 10ml (spun) Discharge Plan Departure Patient Disposition: Home Clinical Impression: Vaginal vault prolapse UTI (urinary tract infection) Qualifiers: Urinary tract infection type: catheter-associated UTI Indwelling urinary catheter type: indwelling urethral catheter Encounter type: initial encounter Qualified Code(s): T83.511A - Infection and inflammatory reaction due to indwelling urethral catheter, initial encounter Instructions: DI for Urinary Tract Infection (UTI) Activity Restrictions/Additional Instructions: I have sent you home with the antibiotic for your urinary tract infection,it is called fosfomycin, it is a single dose. without antibiotics, you could become very sick. I was hoping that he would take this medication here so we could directly observe you but you declined. No additional medication is needed as of yet, your culture is pending. Please keep the area clean use soap and water cleanse or moist wipes, wound care is recommended to prevent any skin on skin friction. Please contact Dr. Anne on Wednesday morning regarding your chronic vaginal vault prolapse. Please do not pull on the urinary catheter. do not hesitate to return to the emergency department if you have any worsening symptoms or any new symptoms. Prescriptions: No Action estradiol 0.01 % (0.1 mg/gram) cream See Rx Instructions .ROUTE .COMPLEX Qty: 42.5 2RF Dose Instruction: insert 0.5 gram vaginally two times a week Rx Instructions: insert 0.5 gram vaginally two times a week fosfomycin tromethamine 3 gram packet 3 g PO ONCE Qty: 1 0RF (DME) catheter 14 Fr misc See Rx Instructions .Route Qty: 30 1RF Rx Instructions: To use PRN for urinary retention prasugrel 10 mg tablet 10 mg PO DAILY nitroglycerin 0.4 mg tablet, sublingual 0.4 mg sublingual PRN PRN (Reason: Chest Pain) Rx Instructions: PLACE 1 T UNT Q 5 MIN PRF CHEST PAIN FOR UP TO 14 DOSES lisinopril 2.5 mg tablet 1.25 mg PO DAILY metoprolol tartrate 25 mg tablet 25 mg PO DAILY Referrals: Melly Bah MD [Primary Care Provider] - Stand Alone Forms: Patient Portal/API/Survey ED Sign-out <Shant Palacios MD - Last Filed: 05/04/24 19:36> Cosign ED Attending Cosreneature Attestation: I was immediately available in the department for consultation. This documentation has been reviewed and I agree with assessment and plan. Supervised by Shant Palacios MD
[2024-05-04 13:30] VITALS: BP 156/72; PULSE 64; O2SAT 99
[2024-05-04] MEDS: FOSFOMYCIN 3 GM PACKET PO (14:05)
== END 2024-05-04 14:13 | disposition home or self-care (01) ==
PROVIDERS: Emergency Medicine; Emergency Provider Physician Assistant Medical; PCP Internal Medicine
DX: N81.10 Cystocele, unspecified (principal); T83.511A Infection and inflammatory reaction due to indwelling urethral catheter, initial encounter
CPT/HCPCS: 81001; 87077; 87086; 87186; 99283

== ENCOUNTER → 2024-05-19 14:55 | Outpatient (CLI) | payer OTHER, SELFPAY | PROVIDERS: PCP Internal Medicine; Referring Provider Urology; Visit Provider Urology | DX: N39.0 Urinary tract infection, site not specified (principal); N81.9 Female genital prolapse, unspecified; T83.511A Infection and inflammatory reaction due to indwelling urethral catheter, initial encounter; Z91.148 Patient's other noncompliance with medication regimen for other reason | CPT/HCPCS: 81002; 87077; 87086; 87186 ==

== ENCOUNTER 2024-06-13 14:39 | Emergency (ER) | payer OTHER, SELFPAY ==
[2024-06-13 14:50] VITALS: BP 174/77; PULSE 79; RESP 18; TEMP 36.4; O2SAT 95; BMI 25.8
== END 2024-06-13 15:29 | disposition left against medical advice (07) ==
PROVIDERS: Emergency Provider Emergency Medicine; PCP Internal Medicine
DX: R06.02 Shortness of breath (principal)
CPT/HCPCS: 99281

== ENCOUNTER 2024-07-20 23:29 | Emergency (ER) | payer OTHER, SELFPAY ==
[2024-07-20 23:33] VITALS: BP 137/62; PULSE 64; O2SAT 95
[2024-07-20 23:39] VITALS: BP 137/62; PULSE 60; RESP 18; TEMP 36.7; O2SAT 97; BMI 25.8
--- NOTE | 2024-07-20 23:47 | EKG_ITS ---
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
[2024-07-21] VITALS (9 sets, daily range): BP systolic 97–141; BP diastolic 55–67; PULSE 57–67; RESP 18; O2SAT 91–99
--- NOTE | 2024-07-21 00:11 | DI.RAD.S_ITS ---
PROCEDURE: XR HIP W PEL IF DONE LT 2V INDICATIONS: fall TECHNIQUE: 3 views of the hip were acquired. COMPARISON: [facility], CR, XR HIP 2 VIEWS LEFT, 03/13/2024, 19:21. [facility], CR, XR HIP W PEL IF DONE LT 2V, 01/18/2024, 19:41. [facility], CT, CT PEL WO CON, 01/18/2024, 21:07. FINDINGS AND IMPRESSION: Bilateral hip arthroplasties. No acute displaced fracture or dislocation. Background pubic symphysis and lumbosacral degenerative changes. No suspicious soft tissue calcifications. If there is high concern for occult injury, consider repeat radiography or cross-sectional imaging. Dictated by: Santo Hartman M.D. on 07/21/2024 at 0:42 Approved by: Santo Hartman M.D. on 07/21/2024 at 0:45
--- NOTE | 2024-07-21 02:01 | ED_ITS ---
HPI - Fall <Shant Palacios MD - Last Filed: 07/21/24 13:32> General Chief Complaint: Fall Stated Complaint: fall on thinners Time Seen by Provider: 07/21/24 01:38 Source: patient and EMS Mode of arrival: EMS History of Present Illness HPI Narrative: 78-year-old female with history of coronary artery disease for which she takes blood thinner medications, she has not sure the name but it is not Plavix, does not recognize Eliquis or Xarelto warfarin or Pradaxa medications, this evening tripped over her own feet while walking across her kitchen, fell forward, striking her face, complains of posterior neck pain, also facial pain, and increasing headache. No nausea or vomiting. No weakness to face arm or leg. No numbness to face arm or leg. She has history of bilateral hip replacements. She denies chest pain or shortness of breath. Related Data Home Medications Medication Instructions Recorded Confirmed lisinopril 2.5 mg tablet 1.25 mg PO DAILY 01/11/19 05/19/24 metoprolol tartrate 25 mg tablet 25 mg PO DAILY 01/11/19 05/19/24 nitroglycerin 0.4 mg sublingual 0.4 mg sublingual PRN PRN Chest 01/11/19 05/19/24 tablet Pain prasugrel HCl 10 mg tablet 10 mg PO DAILY 01/18/24 05/19/24 cholecalciferol (vitamin D3) 10 10 mcg PO DAILY 05/19/24 05/19/24 mcg (400 unit) capsule mecobalamin (vitamin B12) 500 mcg mcg PO 05/19/24 05/19/24 chewable tablet vitamins A,C,F-jixl-eqxbga 4,296 1 cap PO BID 05/19/24 05/19/24 mcg-226 mg-90 mg capsule (PreserVision AREDS) Previous Rx's Medication Instructions Recorded estradiol 0.01% (0.1 mg/gram) See Rx Instructions .Route 04/08/22 vaginal cream .COMPLEX #42.5 grams catheter 14 Fr #30 ea 12/23/23 ciprofloxacin HCl 500 mg tablet 500 mg PO BID #20 tabs 05/22/24 (Cipro) Allergies Allergy/AdvReac Type Severity Reaction Status Date / Time aspirin Allergy Severe Many- Verified 02/21/24 10:15 Worst anaphlaxis NSAIDS (Non-Steroidal Allergy Severe heart Verified 02/21/24 10:15 Anti-Inflamma stopped adenosine [ADENOSINE] Allergy Unknown Verified 02/21/24 10:15 cephalexin Allergy Unknown Verified 02/21/24 10:15 doxycycline Allergy Unknown Verified 02/21/24 10:15 Opioids - Morphine Analogues Allergy Unknown Verified 02/21/24 10:15 [OPIOIDS - MORPHINE ANALOGUES] Gqmguhl-FFO-SdB Reductase Allergy Unknown Verified 02/21/24 10:15 Inhibitor [TULSHHF-ZOC-GHG REDUCTASE INHIBITOR] Sulfa (Sulfonamide Allergy Unknown Verified 02/21/24 10:15 Antibiotics) [SULFA (SULFONAMIDE ANTIBIOTICS)] nitrofurantoin AdvReac Verified 02/21/24 10:15 omeprazole AdvReac Verified 02/21/24 10:15 Patient History <Shant Palacios MD - Last Filed: 07/21/24 13:32> Medical History (Updated 07/21/24 @ 02:18 by Shant Palacios MD) H/O medication noncompliance Hx of coronary stenosis Primary localized osteoarthrosis, pelvic region and thigh (06/13/09) Mixed hyperlipidemia (10/05/16) Kidney stone (09/22/19) Hx of myocardial infarction (01/30/19) History of porphyria Pelvic relaxation 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 HEAD: Abrasions to her nasal bridge and forehead. EYES: Pupils equal round and reactive. Extraocular motions intact. No scleral icterus. No injection or drainage. ENT: Nose without bleeding, purulent drainage. Throat without erythema, tonsillar hypertrophy or exudate. Airway patent. NECK: Trachea midline. Non tender CARDIOVASCULAR: Regular rate and rhythm without murmurs, gallops, or rubs. RESPIRATORY: Clear to auscultation. Breath sounds equal bilaterally. No wheezes, rales, or rhonchi. GASTROINTESTINAL: Abdomen soft, non-tender, nondistended. EXTREMITIES: No edema or joint tenderness. Bilateral hips without obvious tenderness anteriorly or trochanteric, no femur deformities or swelling. No limb length discrepancy. BACK: Nontender without deformity or crepitance. No flank tenderness. NEURO: AOx3. Motor functions grossly nonfocal SKIN: No rash or erythema of visible areas Initial Vital Signs Initial Vital Signs: Vital Signs Pulse Rate 64 07/20/24 23:33 Blood Pressure 137/62 07/20/24 23:33 Pulse Oximetry 95 07/20/24 23:33 <Cierra Paobn DO - Last Filed: 07/21/24 08:45> Initial Vital Signs Initial Vital Signs: Vital Signs Pulse Rate 64 07/20/24 23:33 Blood Pressure 137/62 07/20/24 23:33 Pulse Oximetry 95 07/20/24 23:33 Course <Shant Palacios MD - Last Filed: 07/21/24 13:32> Orders Ordered: ED Orders 07/21/24 06:49 XR shoulder RT min 2V Stat 07/21/24 06:51 XR elbow RT min 3V Stat XR humerus RT 2V Stat 07/21/24 06:52 XR forearm RT 2V Stat Discontinued Medications Bacitracin (Bacitracin Oint 0.9 Gm Pckt) 1 applic TOP NOW ONE Stop: 07/21/24 03:35 Last Admin: 07/21/24 03:41 Dose: 1 applic Documented By: MARVEL Diphtheria/Tetanus/Acell Pertussis (Tet,Diph,Pertuss(Acell),Vac/Pf 0.5 Ml Syringe) 0.5 ml IM .ONCE ONE Stop: 07/21/24 03:34 Last Admin: 07/21/24 03:40 Dose: 0.5 ml Documented By: MARVEL Vital Signs Vital signs: Vital Signs - 8 hr 07/21/24 06:05 07/21/24 06:06 07/21/24 06:06 Pulse Rate 67 67 Respiratory Rate 18 Blood Pressure 117/56 L Pulse Oximetry 93 93 Oxygen Delivery Method 07/21/24 06:30 07/21/24 06:30 07/21/24 08:30 Pulse Rate 58 L Respiratory Rate Blood Pressure 114/57 L 121/58 L Pulse Oximetry 91 Oxygen Delivery Method 07/21/24 08:30 Pulse Rate 57 L Respiratory Rate Blood Pressure Pulse Oximetry 95 Oxygen Delivery Method Room Air <Cierra Pabon DO - Last Filed: 07/21/24 08:45> Orders Ordered: ED Orders 07/21/24 06:49 XR shoulder RT min 2V Stat 07/21/24 06:51 XR elbow RT min 3V Stat XR humerus RT 2V Stat 07/21/24 06:52 XR forearm RT 2V Stat Discontinued Medications Bacitracin (Bacitracin Oint 0.9 Gm Pckt) 1 applic TOP NOW ONE Stop: 07/21/24 03:35 Last Admin: 07/21/24 03:41 Dose: 1 applic Documented By: MARVEL Diphtheria/Tetanus/Acell Pertussis (Tet,Diph,Pertuss(Acell),Vac/Pf 0.5 Ml Syringe) 0.5 ml IM .ONCE ONE Stop: 07/21/24 03:34 Last Admin: 07/21/24 03:40 Dose: 0.5 ml Documented By: MAREVL Vital Signs Vital signs: Vital Signs - 8 hr 07/21/24 06:05 07/21/24 06:06 07/21/24 06:06 Pulse Rate 67 67 Respiratory Rate 18 Blood Pressure 117/56 L Pulse Oximetry 93 93 Oxygen Delivery Method 07/21/24 06:30 07/21/24 06:30 07/21/24 08:30 Pulse Rate 58 L Respiratory Rate Blood Pressure 114/57 L 121/58 L Pulse Oximetry 91 Oxygen Delivery Method 07/21/24 08:30 Pulse Rate 57 L Respiratory Rate Blood Pressure Pulse Oximetry 95 Oxygen Delivery Method Room Air MDM - Fall <Shant Palacios MD - Last Filed: 07/21/24 13:32> Lab Data Labs: Point of Care Testing Glucose POC 131 Imaging Data X-ray hip with pelvis: Radiologist's Impression: [address] [address] XRay Report Signed Patient: Soren Landrum MR#: [id number] : 1945 Acct:[id number] Age/Sex: 78 / F Date of Service: 07/21/24 Loc: ED Accession Number: [id number] Procedure: XR hip w pel if done LT 2V Ordering Provider: Shant Palacios MD PROCEDURE: XR HIP W PEL IF DONE LT 2V INDICATIONS: fall TECHNIQUE: 3 views of the hip were acquired. COMPARISON: [facility], CR, XR HIP 2 VIEWS LEFT, 03/13/2024, 19:21. [facility], CR, XR HIP W PEL IF DONE LT 2V, 01/18/2024, 19:41. [facility], CT, CT PEL WO CON, 01/18/2024, 21:07. FINDINGS AND IMPRESSION: Bilateral hip arthroplasties. No acute displaced fracture or dislocation. Background pubic symphysis and lumbosacral degenerative changes. No suspicious soft tissue calcifications. If there is high concern for occult injury, consider repeat radiography or cross-sectional imaging. Dictated by: Santo Hartman M.D. on 07/21/2024 at 0:42 Approved by: Santo Hartman M.D. on 07/21/2024 at 0:45 ECG Data Attestation: I personally reviewed and interpreted this ECG as follows: Interpretation: Sinus bradycardia with rate of 58. No obvious ST segment elevation or depression changes. Flat T-waves lead 3, upright T-waves leads 2 and F. AL 164, QRS 94, QTC 461. MDM Narrative Medical decision making narrative: 78-year-old female with history of CAD, reports being on blood thinner medications though she can not name the brand, unclear if this is antiplatelet or some other medication, did not recognize various brand names. Abrasions to face and forehead, increasing headache, posterior neck pain. Also some hip pain bilateral, history of hip replacement surgeries remote both sides. X-rays hips ordered from triage. CT head, face, C-spine. X-rays bilateral hips with pelvis, old hip replacement hardware intact, no obvious fracture. See radiology report CT head noncontrast. Impressions: ?No acute intracranial findings. Specifically no fracture or intracranial hemorrhage. ? See tele radiology r eport CT maxillofacial without contrast. Impressions: ?No acute fracture. ? See tele radiology report CT cervical spine without contrast. Impressions: ?No fracture. ? See tele radiology report Antibiotic ointment and wound cleansing to facial abrasions. Last tetanus she believes 2010, will give IM Tdap update. Patient was prepped for discharge and then had complaint to nursing about right- sided upper extremity discomfort. Complaining of shoulder upper arm forearm discomfort. X-rays right shoulder, right humerus, right forearm requested. Xrays RUE pending, signed out to Dr Pabon <Cierra Pabon, DO - Last Filed: 07/21/24 08:45> Lab Data Labs: Point of Care Testing Glucose POC 131 Imaging Data Extremity x-ray #1: Radiologist's Impression: PROCEDURE: XR SHOULDER RT MIN 2V INDICATIONS: shoulder pain after fall TECHNIQUE: 2 views of the shoulder were acquired. COMPARISON: None. FINDINGS: Bones: No fractures or dislocations. Vfwi-yx-subycphp acromioclavicular joint and glenohumeral joint osteoarthritis. No suspicious bony lesions. Visualized ribs appear intact. Soft tissues: No suspicious soft tissue calcifications. IMPRESSION: Zaum-qb-eeydchql right acromioclavicular joint and glenohumeral joint osteoarthritis. No acute fracture or dislocation. No gross soft tissue abnormalities. Dictated by: Barry Hernandez M.D. on 07/21/2024 at 8:12 Approved by: Barry Hernandez M.D. on 07/21/2024 at 8:13 Extremity x-ray #2: Radiologist's Impression: PROCEDURE: XR ELBOW RT MIN 3V INDICATIONS: right elbow pain TECHNIQUE: 3 views of the elbow were acquired. COMPARISON: None. FINDINGS: Bones: No fractures or dislocations. Small enthesophyte formation involving proximal radius at distal biceps insertion. Small enthesophyte formation involving medial humeral condyle at common flexor tendon origin is also seen. No suspicious bony lesions. Soft tissues: No elbow joint effusion. No suspicious soft tissue calcifications. IMPRESSION: No acute elbow fracture or dislocation. No significant joint effusion. Enthesophyte formation in medial humeral condyle and proximal radius as above likely represent sequelae from remote avulsion injury. Dictated by: Barry Hernandez M.D. on 07/21/2024 at 8:17 Extremity x-ray #3: Radiologist's Impression: katelin England MD PROCEDURE: XR HUMERUS RT 2V INDICATIONS: pain fall right arm TECHNIQUE: 2 views of the humerus were acquired. COMPARISON: None. FINDINGS: Bones: No fractures or dislocations. No suspicious bony lesions. Soft tissues: No suspicious soft tissue calcifications. IMPRESSION: No acute humeral fracture or dislocation. No gross soft tissue abnormalities. Dictated by: Barry Hernandez M.D. on 07/21/2024 at 8:13 Approved by: Barry Hernandez M.D. on 07/21/2024 at 8:13 X ray 4: Radiologist's Impression: PROCEDURE: XR FOREARM RT 2V INDICATIONS: right FA pain after fall TECHNIQUE: 2 views of the forearm were acquired. COMPARISON: None. FINDINGS: Bones: No fractures or dislocations. No suspicious bony lesions. Soft tissues: Ill-defined calcifications adjacent to dorsal and medial aspect of ulnar styloid likely represent sequelae from remote injury. IMPRESSION: No acute forearm fracture or dislocation. Ill-defined soft tissue calcifications adjacent to ulnar styloid likely represent sequelae from remote injury. Dictated by: Barry Hernandez M.D. on 07/21/2024 at 8:13 MDM Narrative Medical decision making narrative: 78-year-old female with history of CAD, reports being on blood thinner medications though she can not name the brand, unclear if this is antiplatelet or some other medication, did not recognize various brand names. Abrasions to face and forehead, increasing headache, posterior neck pain. Also some hip pain bilateral, history of hip replacement surgeries remote both sides. X-rays hips ordered from triage. CT head, face, C-spine. X-rays bilateral hips with pelvis, old hip replacement hardware intact, no obvious fracture. See radiology report CT head noncontrast. Impressions: ?No acute intracranial findings. Specifica lly no fracture or intracranial hemorrhage. ? See tele radiology report CT maxillofacial without contrast. Impressions: ?No acute fracture. ? See tele radiology report CT cervical spine without contrast. Impressions: ?No fracture. ? See tele radiology report Antibiotic ointment and wound cleansing to facial abrasions. Last tetanus she believes 2010, will give IM Tdap update. Patient was prepped for discharge and then had complaint to nursing about right- sided upper extremity discomfort. Complaining of shoulder upper arm forearm discomfort. X-rays right shoulder, right humerus, right forearm requested. Xrays RUE pending, signed out to Dr Pepper Pabon-patient signed out to me by Dr. Palacios seen evaluated patient myself. X-rays have been reviewed and are negative for any fracture there is arthritis noted. Patient seems to be moving it. Supportive care only discharged home Discharge Plan Departure Patient Disposition: Home Clinical Impression: Fall from ground level, Headache, Abrasion of face, Contusion of face, Cervical strain Activity Restrictions/Additional Instructions: Ground level fall, with headache and facial pain, small abrasions to the face. CT imaging of the head, face, cervical spine did not show any injury pattern. Mild cervical spine strain also suspected clinically. You also had some discomfort in both hips, history of prior hip replacement surgeries noted, x- rays did not seem to show any problems with the previous repair areas, nor any acute changes in those areas. Take Tylenol as needed for pain control. Recheck symptoms if not improved in the next couple of days with your regular provider. Return earlier to this/nearest emergency department for any change worsening symptoms or any concerns prior. Prescriptions: No Action estradiol 0.01 % (0.1 mg/gram) cream See Rx Instructions .ROUTE .COMPLEX Qty: 42.5 2RF Dose Instruction: insert 0.5 gram vaginally two times a week Rx Instructions: insert 0.5 gram vaginally two times a week ciprofloxacin HCl [Cipro] 500 mg tablet 500 mg PO BID Qty: 20 0RF (DME) catheter 14 Fr misc See Rx Instructions .Route Qty: 30 1RF Rx Instructions: To use PRN for urinary retention prasugrel HCl 10 mg tablet 10 mg PO DAILY nitroglycerin 0.4 mg tablet, sublingual 0.4 mg sublingual PRN PRN (Reason: Chest Pain) Rx Instructions: PLACE 1 T UNT Q 5 MIN PRF CHEST PAIN FOR UP TO 14 DOSES lisinopril 2.5 mg tablet 1.25 mg PO DAILY metoprolol tartrate 25 mg tablet 25 mg PO DAILY mecobalamin (vitamin B12) 500 mcg tablet,chewable PO cholecalciferol (vitamin D3) 10 mcg (400 unit) capsule 10 mcg PO DAILY PreserVision AREDS 4,296 mcg-226 mg-90 mg capsule 1 cap PO BID Referrals: Melly Bah MD [Primary Care Provider] - Stand Alone Forms: Patient Portal/API/Survey
--- NOTE | 2024-07-21 02:16 | DI.CT.S_ITS ---
PROCEDURE: CT FACIAL BONES WO CON INDICATIONS: Ground level fall, abrasions to face, facial pain TECHNIQUE: Noncontrast 2.5 mm thick axial images acquired from the mandible through the frontal sinuses, with coronal and sagittal reformatting. For radiation dose reduction, the following was used: automated exposure control, adjustment of mA and/or kV according to patient size. COMPARISON: None. FINDINGS: Image quality: Excellent. Bones and teeth: Orbital martinez are intact. Sinus martinez show no fracture or deformity. Nasal bones and septum are intact. Visualized portions of the mandible demonstrate no fractures or subluxation. Zygomatic arches are intact. Pterygoid plates are intact. Visualized portions of the skull base and auditory canals are intact. Sinuses: Paranasal sinuses are aerated, without fluid levels, mucosal thickening, or mucoceles. Mastoid air cells are aerated. Soft tissues: No edema, masses, or fluid collections. No enlarged lymph nodes. No soft tissue lacerations or debris. Vascular: Visualized vascular structures appear normal in the absence of contrast. Bony vascular foramina and canals are intact. IMPRESSION: No displaced fracture. No air-fluid level. Agree with preliminary report. Dictated by: Rafael Villegas M.D. on 07/21/2024 at 6:49 Approved by: Rafael Villegas M.D. on 07/21/2024 at 6:50
--- NOTE | 2024-07-21 02:16 | DI.CT.S_ITS ---
PROCEDURE: CT HEAD/BRAIN WO CON INDICATIONS: Ground level fall, facial pain, headache TECHNIQUE: Noncontrast 4.5 mm thick angled axial sections acquired from the foramen magnum to the vertex, with coronal and sagittal reformats. For radiation dose reduction, the following was used: automated exposure control, adjustment of mA and/or kV according to patient size. COMPARISON: [facility], CT, CT HEAD/BRAIN WO CON, 01/18/2024, 19:45. FINDINGS: Image quality: Diagnostic. CSF spaces: Basal cisterns are patent. No extra-axial fluid collections. Ventricles are normal in size and shape. Brain: No midline shift. No intracranial masses or hemorrhage. Espinosa-white matter interface is normal. Skull and face: Calvarium and visualized facial bones are intact, without suspicious lesions. Sinuses: Visualized sinuses and mastoids are clear. IMPRESSION: No acute intracranial pathology. Agree with preliminary report. Dictated by: Rafael Villegas M.D. on 07/21/2024 at 6:48 Approved by: Rafael Villegas M.D. on 07/21/2024 at 6:48
--- NOTE | 2024-07-21 02:17 | DI.CT.S_ITS ---
PROCEDURE: CT CERVICAL SPINE WO CON INDICATIONS: posterior neck pain after GLF TECHNIQUE: Noncontrast 3 mm thick sections acquired from the skull base to the T4 level. Sagittal and coronal reformats were then constructed. For radiation dose reduction, the following was used: automated exposure control, adjustment of mA and/or kV according to patient size. COMPARISON: [facility], CT, CT CERVICAL SPINE WO CON, 01/18/2024, 19:45. FINDINGS: Image quality: Excellent. Bones: No fractures or dislocations. Visualized superior ribs are intact. Mild to moderate, multilevel degenerative disc disease and diffuse facet arthrosis. Soft tissues: Prevertebral soft tissues are normal in thickness. No paravertebral hematomas. No apical pneumothoraces. IMPRESSION: No displaced fracture or traumatic subluxation. Agree with preliminary report. Dictated by: Rafael Villegas M.D. on 07/21/2024 at 6:50 Approved by: Rafael Villegas M.D. on 07/21/2024 at 6:52
[2024-07-21] MEDS: TET,DIPH,PERTUSS(ACELL),VAC/PF 0.5 ML SYRINGE IM (03:40)
[2024-07-21] MEDS: BACITRACIN OINT 0.9 GM PCKT 1 APPLIC TOP (03:41)
--- NOTE | 2024-07-21 06:49 | DI.RAD.S_ITS ---
PROCEDURE: XR SHOULDER RT MIN 2V INDICATIONS: shoulder pain after fall TECHNIQUE: 2 views of the shoulder were acquired. COMPARISON: None. FINDINGS: Bones: No fractures or dislocations. Qslk-ej-skmntikb acromioclavicular joint and glenohumeral joint osteoarthritis. No suspicious bony lesions. Visualized ribs appear intact. Soft tissues: No suspicious soft tissue calcifications. IMPRESSION: Zygn-gp-hxpoqfpa right acromioclavicular joint and glenohumeral joint osteoarthritis. No acute fracture or dislocation. No gross soft tissue abnormalities. Dictated by: Barry Hernandez M.D. on 07/21/2024 at 8:12 Approved by: Barry Hernandez M.D. on 07/21/2024 at 8:13
--- NOTE | 2024-07-21 06:51 | DI.RAD.S_ITS ---
PROCEDURE: XR ELBOW RT MIN 3V INDICATIONS: right elbow pain TECHNIQUE: 3 views of the elbow were acquired. COMPARISON: None. FINDINGS: Bones: No fractures or dislocations. Small enthesophyte formation involving proximal radius at distal biceps insertion. Small enthesophyte formation involving medial humeral condyle at common flexor tendon origin is also seen. No suspicious bony lesions. Soft tissues: No elbow joint effusion. No suspicious soft tissue calcifications. IMPRESSION: No acute elbow fracture or dislocation. No significant joint effusion. Enthesophyte formation in medial humeral condyle and proximal radius as above likely represent sequelae from remote avulsion injury. Dictated by: Barry Hernandez M.D. on 07/21/2024 at 8:17 Approved by: Barry Hernandez M.D. on 07/21/2024 at 8:19
--- NOTE | 2024-07-21 06:51 | DI.RAD.S_ITS ---
PROCEDURE: XR HUMERUS RT 2V INDICATIONS: pain fall right arm TECHNIQUE: 2 views of the humerus were acquired. COMPARISON: None. FINDINGS: Bones: No fractures or dislocations. No suspicious bony lesions. Soft tissues: No suspicious soft tissue calcifications. IMPRESSION: No acute humeral fracture or dislocation. No gross soft tissue abnormalities. Dictated by: Barry Hernandez M.D. on 07/21/2024 at 8:13 Approved by: Barry Hernandez M.D. on 07/21/2024 at 8:13
--- NOTE | 2024-07-21 06:52 | DI.RAD.S_ITS ---
PROCEDURE: XR FOREARM RT 2V INDICATIONS: right FA pain after fall TECHNIQUE: 2 views of the forearm were acquired. COMPARISON: None. FINDINGS: Bones: No fractures or dislocations. No suspicious bony lesions. Soft tissues: Ill-defined calcifications adjacent to dorsal and medial aspect of ulnar styloid likely represent sequelae from remote injury. IMPRESSION: No acute forearm fracture or dislocation. Ill-defined soft tissue calcifications adjacent to ulnar styloid likely represent sequelae from remote injury. Dictated by: Barry Hernandez M.D. on 07/21/2024 at 8:13 Approved by: Barry Hernandez M.D. on 07/21/2024 at 8:17
== END 2024-07-21 08:51 | disposition home or self-care (01) ==
PROVIDERS: Emergency Provider Emergency Medicine; PCP Internal Medicine
DX: S00.83XA Contusion of other part of head, initial encounter (principal); S00.81XA Abrasion of other part of head, initial encounter; S16.1XXA Strain of muscle, fascia and tendon at neck level, initial encounter; R51.9 Headache, unspecified; R00.1 Bradycardia, unspecified; W01.0XXA Fall on same level from slipping, tripping and stumbling without subsequent striking against object, initial encounter; Z23 Encounter for immunization; Z96.643 Presence of artificial hip joint, bilateral; Z88.2 Allergy status to sulfonamides
CPT/HCPCS: 70450; 70486; 72125; 73030; 73060; 73080; 73090; 73502; 82962; 90471; 93005; 93010; 99284; 90715

== ENCOUNTER → 2025-01-04 16:57 | Outpatient (CLI) | payer MEDICARE, SELFPAY ==
--- NOTE | 2025-01-04 16:57 | DI.MG.S_ITS ---
MM screening mammo BI: 01/04/2025. BI-RADS: 2 CLINICAL: 79-year old female for bilateral screening mammogram. Tyrer-Cuzick lifetime risk of 2.6%. Current reported family history of breast cancer: mother. The patient had a prior left breast biopsy. PRIOR EXAMS 06/22/2023, 05/07/2022, 04/03/2021, 03/05/2020, MAMMOGRAPHY TECHNIQUE: 2D and 3D (tomosynthesis) digital mammographic views obtained, with additional images as needed for full coverage. Current study was also evaluated with a Computer Aided Detection (CAD) system. DENSITY B. There are scattered areas of fibroglandular density. MAMMOGRAPHY FINDINGS Right: No suspicious mass, asymmetry, microcalcification, or other abnormality seen. Left: Biopsy marker present on the left. There are no suspicious masses, calcifications, or other findings in the breast. IMPRESSION: Right * No evidence of malignancy. Left * No evidence of malignancy with benign findings. RECOMMENDATIONS Bilateral * Annual screening mammography. OVERALL ASSESSMENT CATEGORY BI-RADS-2: Benign. The [employer] recommends annual screening mammography beginning at age 40 for women with average risk of breast cancer. ELECTRONICALLY SIGNED: Estefani Esteban M.D. on 01/04/2025 at 11:00:30 PM PT Interpreting Station ID: [id number]
== END ==
LOC: MAMMO 16:57
PROVIDERS: PCP Internal Medicine; Referring Provider Internal Medicine; Visit Provider Internal Medicine
DX: Z12.31 Encounter for screening mammogram for malignant neoplasm of breast (principal); Z80.3 Family history of malignant neoplasm of breast
CPT/HCPCS: 77063; 77067